=== PATIENT | female | born 1945 | race Caucasian/White ===

== ENCOUNTER 2017-01-23 10:08 | Inpatient (IN) | payer MEDICARE, OTHER ==
[~2017-01-23] VITALS: Ht 170.2 cm; Wt 77.6 kg
[2017-01-23] VITALS (7 sets, daily range): BP systolic 112–146; BP diastolic 58–80; PULSE 90–105; RESP 15–20; O2SAT 93–100
--- NOTE | 2017-01-23 10:09 | ED.REPORT ---
HPI-Stroke / CVA Jan 23, 2017 ED Provider: Johny Green MD 71 year old female with a history of COPD presents to the ER via EMS due to slurred speech. Last known normal 09:00 this morning. Daughter reports that the patient called her this morning and had slurred speech, difficulty word finding , had a "mechanical sound to her voice, and "was not making sense". When she arrived at the patient's home she found the patient extremely diaphoretic, shaking, with a left side facial droop, and states that she had ripped off her nasal cannula. Symptoms have been rapidly improving since the onset, and patient is currently back to baseline. Patient states that she awakened last night and went to the bathroom where she became incontinent of stool and urine, and then became dizzy and experienced difficulty ambulating on her way back to her bed. Upon returning to her bed she neglected to put in her cannula. She then awakened later in the night with visual disturbances of "flashing lights" described as "short circuits in her vision" that have been occurring intermittently for the past few days, and diffuse "jerking motions". Patient denies shortness of breath, chest pain, difficulty swallowing, and numbness/weakness. Daughter also reports that the patient was abnormally fatigued three days ago during a family gathering, with exhaustion that has persistent since. Nursing Notes Stated Complaint: SLURRED SPEECH Nursing Notes Reviewed: Yes Allergies: Coded Allergies: Penicillins (Verified Allergy, Severe, Rash,Itching,, 01/23/17) budesonide (Verified Allergy, Severe, Restlessness, 01/23/17) formoterol (Verified Allergy, Severe, Restlessness, 01/23/17) levofloxacin (Verified Allergy, Severe, Hallucinations, 01/23/17) General Time Seen by Provider: 10:09 Chief Complaint Slurred speech Hx Obtained From: Patient, Daughter Arrived By: Ambulance Time last known well 09:00 this morning Sudden in Onset?: No Symptom Duration: Since onset Progression Since Onset: Rapidly improving Associated with: Reports: Bladder dysfunction, Bowel dysfunction, Incontinence Pertinent Negative: Pt denies other symptoms Similar Sx Previous: No Risk Factors )( TPA Administration/Criteria Stroke Thrombolytic Therapy : TPA Considered: Yes TPA Administered Intravenously: No, not indicated NIH Stroke Scale Level of Consciousness: Alert and responsive (0) Ask Month & Age: Both questions right (0) Open/Close Eyes/Hand Stock Crane Operator: Performs both tasks (0) Horizontal EO Movements: None (0) Visual [place]: No visual loss (0) Facial Palsy: Normal symmetry (0) Right Arm Motor Drift (10s): No drift 10 sec (0) Left Arm Motor Drift (10s): No drift 10 sec (0) Right Leg Motor Drift (5s): No drift 5 sec (0) Left Leg Motor Drift (5s): No drift 5 sec (0) Limb Ataxia FNF/Heel-Carpenter: No ataxia (0) Sensation (Arms/Legs/Face): No sensory loss (0) Language Aphasia: No aphasia, normal (0) Dysarthria: No dysarthria, normal (0) Extinction/Inattention: No exctinct/inattent (0) NIHSS Score: 0 Time NIHSS Performed: 10:19 Date NIHSS Performed: Jan 23, 2017 Past Medical History Past Medical History Notes: CODE STATUS: FULL CODE Past Medical History Reports: COPD Smoking History Unknown if Ever Smoker Social History Other Social History: Good social support Review of Systems Review of Systems Note: +Facial Droop Constitutional: Reports: Fatigue, Denies: Fever Respiratory: Denies: Non-productive cough, Shortness of breath Cardiovascular: Denies: Chest pain Skin: Reports Diaphoresis Neurologic: Reports: Bladder dysfunction, Bowel dysfunction, Dizziness, Problem walking, Shaking, Slurred speech, Vision change ("Flashing lights"), Denies: Focal weakness, Headache, Numbness, Syncope, Weakness Complete sys rev & neg: except as marked. Physical Exam Initial Vital Signs Vital Signs (First) Date Time Temp Pulse Resp B/P Pulse Ox O2 Delivery O2 Flow Rate FiO2 01/23/17 10:12 36.0 103 15 130/75 97 Nasal Cannula 2 Initial VS: Reviewed Abdomen / GI: Soft, Non-tender, No guarding, No rebound, No distention Extremities: Vascular intact, Neuro intact, No swelling, No tenderness Skin: Warm, Dry, No cyanosis Psychiatric: Mood/affect normal, Behavior normal, Normal thought content General/Constitutional: Awake, Alert, Well developed, Well nourished Head / Eyes: Atraumatic, Normocephalic Neck: Supple, Full range of motion, No swelling, Non-tender, No carotid bruit Respiratory / Chest: No respiratory distress Faint bibasilar crackles. Cardiovascular: Heart rate NL, Regular rhythm, Heart sounds NL, No murmurs, Peripheral circulation NL Neurologic: Oriented X3, Speech NL, No motor deficits, No sensory deficits, CN II - XII intact See the NIH Stroke Scale in the Risk section of this note. Interpretation & Diagnostics Lab Results Interpretation Result Diagram: 01/23/17 1025 01/23/17 1025 Test 01/23/17 10:25 01/23/17 13:00 White Blood Count 11.3th/mm3 (3.8-10.1) Red Blood Count 3.77mil/mm3 (3.90-5.20) Hemoglobin 11.1g/dL (12.0-15.6) Hematocrit 40.8% (35.0-46.0) Mean Corpuscular Volume 108.2fL (81-100) Mean Corpuscular Hemoglobin 29.4pg (27.0-35.0) Mean Corpuscular Hemoglobin Concent 27.2% (32.0-37.0) Red Cell Distribution Width 13.0% (12.3-15.4) Platelet Count 156bil/L (150-400) Neutrophils (%) (Auto) 68.6% (40-74) Lymphocytes (%) (Auto) 15.5% (14-46) Monocytes (%) (Auto) 11.8% (4-12) Eosinophils (%) (Auto) 3.6% (0-5) Basophils (%) (Auto) 0.2% (0-3) Prothrombin Time 9.3sec (8.1-12.5) Prothromb Time International Ratio 0.87ratio Sodium Level 145mEq/L (134-144) Potassium Level 5.0mEq/L (3.5-5.2) Chloride Level 97mEq/L (97-108) Carbon Dioxide Level 41mmol/L (18-29) Blood Urea Nitrogen 26mg/dL (8-27) Creatinine 1.18mg/dL (0.57-1.00) Estimat Glomerular Filtration Rate 65mL/min (>59) Glucose Level 110mg/dL (60-99) Calcium Level 9.8mg/dL (8.5-10.1) Magnesium Level 2.5mg/dL (1.6-2.6) Total Bilirubin 0.2mg/dL (0.0-1.2) Aspartate Amino Transf (AST/SGOT) 13U/L (0-50) Alanine Aminotransferase (ALT/SGPT) 7U/L (0-32) Alkaline Phosphatase 54U/L (25-165) Troponin T 0.012ug/L (0.0-0.011) Total Protein 6.4g/dL (6.4-8.4) Albumin 3.5g/dL (3.4-5.0) Triglycerides Level 94mg/dL (0-149) Cholesterol Level 196mg/dL (100-199) LDL Cholesterol, Calculated 92.200mg/dL (0-99) VLDL Cholesterol 18.800mg/dL HDL Cholesterol 85mg/dL (>39) Cholesterol/HDL Ratio 2.31 (0.0-4.4) Urine Color Straw (YELLOW) Urine Appearance Hazy (CLEAR,HAZY) Urine pH 5.5 (5.0-8.0) Urine Specific [place] 1.020 (1.003-1.035) Urine Protein 30mg/dL (NEG,TRACE) Urine Glucose (UA) Negativemg/dL (NEGATIVE) Urine Ketones Negativemg/dL (NEGATIVE) Urine Occult Blood Negative (NEGATIVE) Urine Nitrite Positive (NEGATIVE) Urine Bilirubin Negative (NEGATIVE) Urine Urobilinogen Normalmg/dL (NORMAL) Urine Leukocyte Esterase Negative (NEGATIVE) Urine RBC 0-2/hpf (0-2) Urine WBC 0-5/hpf (0-5) Urine Epithelial Cells Occasional/hpf (NONE-MOD) Urine Crystals None seen (NONE SEEN) Urine Bacteria Many/hpf (NONE-FEW) Urine Hyaline Casts None/lpf (NONE) Urine Granular Casts None seen (NONE SEEN) Urine Waxy Casts None seen (NONE SEEN) Urine Red Blood Cell Casts None seen (NONE SEEN) Urine White Blood Cell Casts None seen (NONE SEEN) Urine Mucus None seen (None Seen) Urine Trichomonas None seen (NONE SEEN) Urine Yeast None (NONE SEEN) Urinalysis Comment None Urine Culture Reflexed Indicated ECG Interpretation ECG Interpretation: Normal sinus rhythm, rate [address] elevation in leads 2, 3, avF with no ST depressions Electrical alternance No STEMI, cannot rule out pericarditis Discussed with wafer fabrication technician, thought likely J-point elevation Time: 11:10 Interpreted by: ED physician X-Ray Chest Interpretation Chest Xray Interpretation: IMPRESSION: No acute cardiopulmonary disease process. Dictated by: Patti Thomas MD, PhD on 01/23/2017 at 11:17 Approved by: Patti Thomas MD, PhD on 01/23/2017 at 11:18 View: Portable, 1 view Interpretation / Wet Read by: Interpret - Radiologist CT Head Interpretation IMPRESSION: 1. Subtle effacement of morton-white matter differentiation involving a small region of the left parietal lobe suggestive of an acute infarct. 2. No acute intracranial hemorrhage. Findings discussed with Dr. Green on 01/23/17 at 11:08 AM. Dictated by: Bobby Mejía M.D. on 01/23/2017 at 11:04 Approved by: Bobby Mejía M.D. on 01/23/2017 at 11:10 Study: Head CT no contrast Interpretation / Wet Read by: Interpret - Radiologist Re-Eval/Medical Decision Med Decision/Clinical Course 71-year-old female history of COPD presenting with dysarthria this morning. Last known normal was on 900. Symptoms resolved prior to arrival. Also with some visual complaints yesterday which resolved. CT brain shows left parietal infarct subacute. Her NIH scale was 0 and her symptoms had resolved therefore not TPA candidate. Patient also with mild troponin elevation. She does have some ST elevations in inferior and lateral leads. Cardiology saw the patient and was able to find an old EKG which showed no change from one month ago. She did not think the troponin elevation was due to cardiac more likely due to stroke. Patient will be admitted for CVA workup. We will trend troponins. Aspirin given. Passed swallow evaluation. Admitted to hospitalist Source of Hx: Old records Re-Evaluation/Progress #1: Time of Eval: 10:27 Re-Evaluation/Progress Note: Discussed need for admission pending lab results. Patient is amenable to the plan. All other questions addressed. Re-Evaluation/Progress #2: Time of Eval: 11:12 Re-Evaluation/Progress Note: Dr. Villalpando, Cardiology, is now present. Discussed ECG findings. She is now seeing the patient. Re-Evaluation/Progress #3: Time of Eval: 11:39 Re-Evaluation/Progress Note: Discussed lab and imaging results and need for admission. Patient is amenable to the plan. All other questions addressed. CODE STATUS: FULL CODE Consultation #1: Referral / Consult Name: Sugar Villalpando MD Consulted With: Cardiology Call Returned at: 10:47 Film Projector Operator: Will see patient Consultation #2: Referral / Consult Name: Sugar Villalpando MD Consulted With: Cardiology Call Returned at: 11:34 Note: Does not think elevated troponin is cardiac, believes it to be related to CVA. Recommends ASA and echocardiogram. Will see patient. Consultation #3: Referral / Consult Name: Neris Guerrero DO Consulted With: Hospitalist Call Returned at: 12:56 Film Projector Operator: Agrees with eval, Agrees with plan, Accepts admit Counseled Regarding: Diagnosis, Lab results, Need for admission Patient Discharge & Departure Impression: Primary Impression: CVA (cerebral vascular accident) Disposition: ADMITTED TO HOSPITAL Discharge Condition All VS Reviewed: Yes Condition: Stable Referrals: Zahira Kemp (PCP) Eden Martinez MD Crit Care Except Billable Proc Time Spent: 30-74 minutes Services Performed: Patient management by me, Time spent at bedside, Reviewing test results, Reviewing imaging, Discussing patient care, Documentation in record, Time with fam/surrogate Scribe Attestation Portions of this note were transcribed by Calvin Martines. I, Dr. Green, personally performed the history, physical exam and medical decision-making; I reviewed and confirmed the accuracy of the information in the transcribed note. Signed by: Constantine Conley, 01/23/2017 at 12:57 copies to: Zahira Kemp; Eden Martinez MD, Ben M MD Jan 23, 2017 10:09 CALVIN MARTINES Jan 23, 2017 10:16
[2017-01-23 10:30] LABS: BASOPHILS % (AUTO) 0.2 % (0-3); EOSINOPHILS % (AUTO) 3.6 % (0-5); MONOCYTES % (AUTO) 11.8 % (4-12); Mean Corpuscular Hemoglobin 29.4 pg (27.0-35.0); Mean Corpuscular Volume 108.2 fL (81-100); NEUTROPHILS % (AUTO) 68.6 % (40-74); Platelet Count 156 bil/L (150-400)
[2017-01-23 10:45] LABS: INR 0.87 ratio
[2017-01-23 10:52] LABS: Magnesium 2.5 mg/dL (1.6-2.6)
--- NOTE | 2017-01-23 11:11 | DRSVH ---
PROCEDURE: CT BRAIN WITHOUT CONTRAST ([id number]) INDICATIONS: Stroke. Slurred speech. TECHNIQUE: Noncontrast 4.5 mm thick angled axial sections acquired from the foramen magnum to the vertex, with c oronal reformats. COMPARISON: None. FINDINGS: Image quality: There is mild motion artifact. CSF spaces: Basal cisterns are patent. No extra-axial fluid collections. Ventricles are normal in size and shape. Brain: No intracranial hemorrhage, mass, or mass effect. There is subtle effacement of the morton-whi te matter differentiation involving a small region of the left parietal lobe. Skull and face: Calvarium and visualized facial bones appear intact, without suspicious lesions. Sinuses: Visualized sinuses and mastoids are clear. IMPRESSION: 1. Subtle effacement of morton-white matter differentiation involving a small region of the left parie chanda lobe suggestive of an acute infarct. 2. No acute intracranial hemorrhage. Findings discussed with Dr. Green on 01/23/17 at 11:08 AM. Dictated by: Bobby Mejía M.D. on 01/23/2017 at 11:04 Approved by: Bobby Mejía M.D. on 01/23/2017 at 11:10
--- NOTE | 2017-01-23 11:20 | DRSVH ---
PROCEDURE: X-RAY CHEST ONE VIEW, PORTABLE ([id number]) INDICATIONS: cough TECHNIQUE: One view of the chest was acquired. COMPARISON: [facility], CR, XR CHEST 2VW, 10/20/2015, 14:41. FINDINGS: Surgical changes and devices: None. Lungs and pleura: No pleural effusions or pneumothorax. Lungs are clear of acute opacities. Bilater al interstitial stable compared to 10/20/15. Mediastinum: Mediastinal contours appear normal. Heart size is normal. Bones and chest wall: No suspicious bony lesions. Overlying soft tissues appear unremarkable. IMPRESSION: No acute cardiopulmonary disease process. Dictated by: Patti Thomas MD, PhD on 01/23/2017 at 11:17 Approved by: Patti Thomas MD, PhD on 01/23/2017 at 11:18
[2017-01-23] MEDS ORDERED: Ondansetron 2 mg/mL 2 mL Inj IVPUSH PRN ×2 (13:00→14:30)
[2017-01-23] MEDS ORDERED: Alum-Mag Hydrox-Simeth 30 mL Suspension PO PRN ×2 (13:00→14:30)
[2017-01-23 13:28] LABS: APPEARANCE,URINE HAZY (CLEAR,HAZY); COLOR,URINE STRAW (YELLOW); OCCULT BLOOD,URINE NEGATIVE (NEGATIVE); PH,URINE 5.5 (5.0-8.0); UROBILINOGEN,URINE NORMAL (NORMAL)
--- NOTE | 2017-01-23 13:30 | CONS ---
[address] [address] CONSULTATION REPORT PATIENT: DANNY DICKENS : 1945 MR#: [id number] ADMIT: 01/23/2017 JOB ID: [id number] DATE OF SERVICE: 01/23/2017 CHIEF COMPLAINT: Flashing lights and abnormal EKG and slurred speech. HISTORY OF PRESENT ILLNESS: Patient is a 71-year-old woman with chronic bronchitis, on supplemental oxygen. She is closely monitored by Dr. Martinez. Over the past 48 hours, she reports some unusual sensations, namely feeling of visualizing flashing lights that last a few seconds in both visual sung and resolve after a few seconds. This problem has been going on for 48 hours. Additionally, she had difficulty with slurred speech, word finding difficulty, and word salad. The patient was diaphoretic, shaking, with left-sided facial droop when daughter discovered her. Right now patient is back to baseline. Unfortunately, imaging demonstrated parietal stroke and Cardiology was consulted to assist with management due to abnormal EKG. PAST MEDICAL HISTORY: 1. Chronic bronchitis, on supplemental oxygen. Monitored by Dr. Martinez. 2. Smoking history. The patient is a lifetime nonsmoker but had extensive exposure to secondhand smoke. SOCIAL HISTORY: She is accompanied by her daughter, Lorenzo, who is a registered nurse. FAMILY HISTORY: Reviewed and non-contributory REVIEW OF SYSTEMS: Significant for facial droop, fatigue, diaphoresis, bladder dysfunction, bowel dysfunction, dizziness, shaking, slurred speech, flashing lights. No chest pain, no syncope. Otherwise, 10-point review of systems is negative. ALLERGIES: 1. PENICILLIN. 2. BUDESONIDE. 3. FORMOTEROL. 4. LEVOFLOXACIN. HOME MEDICATIONS: 1. Advair. 2. Tudorza. 3. Diltiazem CD 300 mg daily. 4. Lisinopril 10 mg daily. PHYSICAL EXAM: VITAL SIGNS: Temperature 36. Blood pressure 130/75, pulse 103 and regular, satting 97% on 2 L nasal cannula. Chronically ill-appearing older woman, lying flat in bed, in no apparent distress. Eyes: No scleral icterus. Neck supple. No carotid bruits. Heart: Normal S1, S2. No murmurs, rubs, or gallops. Her pulse is fast. Lungs with diminished air movement bilaterally but no paul wheezes. Abdomen is soft with positive bowel sounds. No hepatosplenomegaly. Extremities warm, well perfused. No clubbing, cyanosis, edema, skin rash, skin lesions. Patient's labs were reviewed. Her white count is slightly elevated at 11.3, hematocrit 41%, platelet count 166, potassium 5. Calcium 9.8, transaminases normal. Blood glucose 110. Troponin T 0.012. IMAGING: Her brain CT unfortunately showed a subtle effacement of morton-white matter differentiation in the left parietal lobe, suggesting an acute infarct but no acute intracranial hemorrhage. Chest x-ray shows small cardiomediastinal silhouette, hyperinflated lungs. I personally reviewed the radiographs. Minimal calcification along the aorta. No infiltrates. No acute cardiopulmonary disease. EKG: I personally reviewed. Shows sinus tachycardia, normal axis, no left ventricular hypertrophy. There is electrical alternans, which could be due to COPD or cardiomyopathy. There is J-point elevation. Compared to prior EKG, November 2015, no changes have occurred. ASSESSMENT AND PLAN: This is a delightful, 71-year-old woman with subacute stroke. No obvious source of embolism identified. I recommend echocardiogram. I think her troponin is elevated due to stroke. There are no symptoms reparable to acute coronary syndrome. I recommend telemetry to rule out paroxysmal AFib as the cause of her stroke. I think she would benefit from antiplatelet therapy, either aspirin or Plavix. Continue permissive hypertension. I think it is reasonable to hold her lisinopril, but I would keep diltiazem going because we do not know whether it was initiated for rate control. I agree with trending troponins every 8 hours until they peak for documentation purposes. Cardiology will monitor along. Thank you very much for the opportunity to evaluate this patient. GERI
--- NOTE | 2017-01-23 14:04 | NUR ---
Evaluation completed. Please go to "Notes" then click on "Assessments and Notes" (bottom left corner of screen). Then select appropriate discipline tab on top of screen.
--- NOTE | 2017-01-23 14:25 | NUR ---
Admit to room 239-1 Pt arrived via stretcher from ER. Able to stand and transfer to bed after being weighed. c/o dizziness and had LOB, 1 assist with transfer Daughter present at bedside. Wears home O2 3 liters Neuro check done.
[2017-01-23] MEDS ORDERED: Labetalol 5 mg/mL 4 mL Inj IVPUSH PRN (14:30)
[2017-01-23] MEDS ORDERED: hydrALAZINE 20 mg/mL Inj IVPUSH PRN (14:30)
[2017-01-23] MEDS ORDERED: Polyethylene Glycol (PEG) 17 Gm Powder PO PRN (14:30)
--- NOTE | 2017-01-23 16:15 | DRSVH ---
[facility] [address] [place] [address] Echocardiogram Report Name: DANNY DICKENS Date : 01/23/2017 Hefer t: 72 in Hospital Exam Location: [facility] Weigh t: 200 lb Gender: Female BSA: 2.1 m2 : 1945 Age: 71 yrs BP: 1 39/74 mmHg Reason For Study: STROKE Ordering Physician: Sugar Villalpando Performed By: Radha Pete Referring Physician: DR. ESTRADA, DR. RICE Interpretation Summary The left ventricle is normal in size, wall thickness, and systolic function without any focal wall motion abnormalities. The ejection fraction is estimated to be 60-65%. The right ventricle is normal in size and function. The right ventricular systolic pressure is estimated at 30 mmHg assuming a right atrial pressure of 3 mm Hg. The left atrium is mildly dilated. Right atrial size is normal. There is no significant valvular heart disease. The aortic root is normal size. No obvious source for cardioembolic stroke. Procedure: A two-dimensional transthoracic echocardiogram with color flow and Doppler was performed. The study quality was technically adequate. There is no prior echocardiogram noted for this patient. The patient was in normal sinus rhythm during the exam. Left Ventricle: The left ventricle is normal in size, wall thickness, and systolic function without any focal wall motion abnormalities. The ejection fraction is estimated to be 60-65%. Assessment of diastolic parameters indicates normal left ventricular diastolic function and normal filling pressures. Right Ventricle: The right ventricle is normal in size and function. Atria: The left atrium is mildly dilated. Right atrial size is normal. There is no Doppler evidence for an atrial septal defect. Mitral Valve: The mitral valve leaflets appear normal. There is no evidence of stenosis, fluttering, or prolapse. There is trace mitral regurgitation. Aortic Valve: The aortic valve is trileaflet. The aortic valve opens well. No aortic regurgitation is present. Tricuspid Valve: The tricuspid valve leaflets are thin and pliable. There is mild tricuspid regurgitation. The right ventricular systolic pressure is estimated at 30 mmHg assuming a right atrial pressure of 3 mm Hg. Pulmonic Valve: The pulmonic valve leaflets are thin and pliable; valve motion is normal. There is a trace or physiologic amount of pulmonic regurgitation. There is no significant valvular heart disease. Great Vessels: The aortic root is normal size. The dimensions of the ascending aorta are normal. The pulmonary artery is normal size. The IVC is of normal diameter and collapses greater than 50% with a sniff. This suggests a low right atrial pressure of 3 mm Hg. Pericardium/ Pleura There is no pericardial effusion. There is no pleural effusion. MMode/2D Measurements & Calculations LVIDd: 4.9 cm LA dimension: 3.8 cm RA long axis LVOT diam: 2.1 cm LVIDs: 3.4 cm AoV Opening FS: 31.4 % LA A2 area: 23.1 cm RA area EPSS: 0.59 cm LA A4 area: 24.2 cm Ao root diam IVSd: 1.0 cm LA length (vol) : 17.0 cm LVPWd: 1.0 cm RA vol Aortic Jxn: 3.1 cm LA vol: 79.9 ml : 50.7 ml asc Aorta Diam LA vol index RA : 24.3 mm/ Ao Arch Diam (Prox RVDd major Trans): 2.9 cm IVC diam: 1.7 cm : 5.7 cm LV matthews. diameter/BSA LV sys. diameter/BSA RVD2 (mid) (cm/m^2): 2.3 (cm/m^2): 1.6 : 3.3 cm Doppler Measurements & Calculations Ao V2 max MV E max ezra MV E/A: 0.98 TR max ezra : 203.5 cm/sec : 73.0 cm/sec Med Peak E' Ezra : 261.9 cm/sec Ao max P.6 mmHg MV A max ezra TR max PG Ao mean P.6 mmHg : 74.3 cm/sec E/E' med: 7.3 : 27.4 mmHg LVOT Max Ezra MV P1/2t Lat Peak E' Ezra PA V2 max : 163.1 cm/sec : 44.4 msec : 118.6 cm/sec NEERU(I,D): 2.8 cm E/E' lat: 6.2 PA mean PG sev ratio: 0.80 E/e' average: 6.7 Pulm A Revs Dur PA Accel Time : 0.11 sec MV P1/2t max ezra Ao V2 mean LV V1 max PG PA V2 mean : 128.4 cm/sec : 80.3 cm/sec MVA(P1/2t): 5.0 cm2 Ao V2 VTI: 32.5 cmLV V1 VTI: 26.0 cm NEERU(V,D): 2.8 cm2 NEERU indexed to BSA (cm^2/m^2): 1.3 Reading Physician:04:14 PM
--- NOTE | 2017-01-23 17:27 | PCM.HPMED ---
Subjective Date of Service Jan 23, 2017 Primary Provider: Admitting Physician: Neris Guerrero DO Primary Care Physician: Zahira Kemp Attending Physician: Neris Guerrero DO Allergies Coded Allergies: Penicillins (Verified Allergy, Severe, Rash,Itching,, 01/23/17) budesonide (Verified Allergy, Severe, Restlessness, 01/23/17) formoterol (Verified Allergy, Severe, Restlessness, 01/23/17) levofloxacin (Verified Allergy, Severe, Hallucinations, 01/23/17) PMH Social History Hx Alcohol Use: No Hx Substance Use: No Smoking Status: Unknown if Ever Smoker Exam Vital Signs Vital Sign - Last Date Time Temp Pulse Resp B/P Pulse Ox O2 Delivery O2 Flow Rate FiO2 01/23/17 13:31 100 112/58 93 Nasal Cannula 3 01/23/17 10:12 36.0 15 Lab and Diagnostics Result Diagram: 01/23/17 1025 01/23/17 1025 Assessment & Plan HPI: Patient is a 71-year-old female who presents with the complaint of left- sided facial droop. Today the patient states that she woke up at around 6:00 in the morning to use the bathroom but felt that she had shortness of breath and was unsure of why and he realized that she was not wearing her oxygen. The patient states that the oxygen most likely chemotherapy sometime during the middle the night but is unsure of how long it was off. The patient then called her daughter (who is also present during this exam). The daughter states that at 9:00 the patient called her to call for help however her speech was very slurred and very difficult to understand and at that time the daughter called 911. By the time 911 arrived the patient's left-sided facial droop had started to improve and upon arrival to the ER the daughter states that her left-sided facial droop was 98% better. CT of the brain was performed showing an acute infarct in the left parietal lobe. EKG also showed ST segment elevation changes however cardiology was called from the emergency room and revealed that this is actually unchanged from patient's baseline. 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 Please see HPI for pertinent positives, all other systems are negatives. Physical Exam: GEN: Patient was awake, alert, responding appropriately to questions HEENT: Pupils equal round and reactive to light, extraocular eye muscles intact , Neck soft, patient did have some hemianopsia on the left side, supple, trachea midline, nomocephalic/atraumatic CV: +S1/S2, regular rate and rhythm, no murmurs auscultated Respiratory: CTAB, no wheezes, rales, rhonchi GI: +bowel sounds x4, soft, compressible, nontender to palpation EXT: no clubbing, cyanosis, edema Neuro: Cranial nerves II-XII grossly intact, negative edih-me-aneo test, 5/5 lower extremity and approximately strength, Psych: mood and affect were appropriate Assessment and Plan 71-year-old female who presents with CVA CVA -MRI of the brain -CT angiogram -Follow up echo -Lipid panel pending -Hemoglobin A1c pending -Plavix 75 mg daily -Continue aspirin 81 mg daily -Follow up labs in the morning -Follow up lipids -Consult neurology Dr. gutierrez COPD -Currently stable -Continue oxygen 3 L continuously -Albuterol when necessary GERD (stable) -Continue home medication Hypertension -Continue lisinopril 10 mg daily -Continue diltiazem 300 mg daily CK D stage III -Creatinine currently 1.18 which is significantly less than the patient's baseline who reports a baseline of 3 -Continue to monitor Elevated troponins -Most likely secondary to CVA -Trend troponins -Follow up echo -Cardiology was consulted from the ER Disposition: Due to the severity of the patient's current diagnosis she will most likely state greater than 2 midnight Code Status: Full code Time spent One hour Neris Guerrero DO Jan 23, 2017 14:32
--- NOTE | 2017-01-23 17:29 | PCM.ADCARE ---
Advance Care Planning Note Purpose of Encounter: To discuss goals of care and CODE STATUS Parties in Attendance: Patient and her daughter who is currently the POA Decisional Capacity: Good Plan: Patient is aware of her current medical conditions and chooses to be full code. This includes CPR and mechanical ventilation. CODE STATUS: Full code Time Spent Adv.Care Planning: Greater than 16 minutes Neris Guerrero DO Jan 23, 2017 17:29
[2017-01-23] MEDS ORDERED: ASCO-412 PO (17:35)
[2017-01-23] MEDS ORDERED: FLUT12AE4 IH (17:35)
[2017-01-23] MEDS ORDERED: ALBU2.5V4 INHALATION (18:28)
[2017-01-23] MEDS ORDERED: LACT1CAP67 PO (18:28)
[2017-01-23] MEDS ORDERED: FLUT12AE6 IH (18:28)
[2017-01-23] MEDS ORDERED: ALBU8.5H2 INHALATION (18:28)
[2017-01-23] MEDS ORDERED: LISI10TA PO (18:28)
[2017-01-23] MEDS ORDERED: DILT300T9 PO (18:28)
[2017-01-23] MEDS ORDERED: ASCO100089 PO (18:28)
[2017-01-23] MEDS ORDERED: ASPI-973 PO (18:28)
[2017-01-23] MEDS ORDERED: MONT10TA23 PO (18:28)
[2017-01-23] MEDS ORDERED: ESOM40CA53 PO (18:28)
[2017-01-23] MEDS ORDERED: FERR325T6 PO (18:28)
[2017-01-23] MEDS ORDERED: Albuterol HFA 60 Puff 8 Gm Inhaler INHALATION PRN (18:35)
--- NOTE | 2017-01-23 19:28 | NUR ---
PVR Pt voided 450 clear yellow urine, PVR = 89.
[2017-01-23] MEDS ORDERED: Albuterol 2.5 mg/3 mL Inhalation Solution NEB PRN (20:00)
[2017-01-23] MEDS ORDERED: Fluticasone-Salmererol 250-50 Inhaler INHALATION SCH (20:30)
[2017-01-23] MEDS: Lactobacillus Rhamnosus 10 Bil Unit Capsule PO SCH (20:40)
[2017-01-23] MEDS: Diltiazem CD 300 mg ER24 Capsule PO SCH (20:40)
[2017-01-23] MEDS: Fluticasone-Salmeterol 500-50 Inhaler INHALATION SCH (20:40)
[2017-01-24] VITALS (11 sets, daily range): BP systolic 105–156; BP diastolic 58–78; PULSE 83–109; RESP 16–20; O2SAT 94–100
--- NOTE | 2017-01-24 03:25 | NUR ---
Vertigo patient states awoke @ 2am as does every am at home feeling dizzy, "loopy", and shaky , she states she usually has to get 'and use bathroom and have a snack at home at this time, checked BS 104 ,not shaky after eating but still feeling dizzy even with lying down! Addendum: 01/24/17 at 0640 by ADELAIDE LEMA RN Again upon arising for BSC became dizzy w/tremor like upon laying back down resolved
[2017-01-24] MEDS: Pantoprazole 40 mg ER24 Tablet PO SCH (06:32)
[2017-01-24 08:11] LABS: Mean Corpuscular Volume 107.6 fL (81-100)
[2017-01-24] MEDS: Fluticasone-Salmeterol 500-50 Inhaler INHALATION SCH ×2 (08:39→21:25)
[2017-01-24] MEDS: Lactobacillus Rhamnosus 10 Bil Unit Capsule PO SCH (08:40)
[2017-01-24] MEDS ORDERED: FLUT12AE4 IH (08:46)
[2017-01-24] MEDS ORDERED: VIT1TABL95 PO (08:50)
[2017-01-24] MEDS: Diltiazem CD 300 mg ER24 Capsule PO SCH (08:56)
--- NOTE | 2017-01-24 10:18 | NUR ---
Orthostatic VS see VS record. when patients right arm extended increasing shaking/spastic movements When standing shaking noted in right arm and leg. c/o dizziness, even with the slightest movement of head upwards.
--- NOTE | 2017-01-24 10:43 | NUR ---
Evaluation completed. Please go to "Notes" then click on "Assessments and Notes" (bottom left corner of screen). Then select appropriate discipline tab on top of screen.
--- NOTE | 2017-01-24 11:16 | NUR ---
Evaluation completed. Please go to "Notes" then click on "Assessments and Notes" (bottom left corner of screen). Then select appropriate discipline tab on top of screen.
--- NOTE | 2017-01-24 11:26 | NUR ---
Social Work Note - Initial Assessment: D/A: See Initial Assessment. The Pt is a 71 y/o female that was admitted for slurred speech. Readmission Risk Score 1. The Pt's PCP is GREG Kemp and her primary insurance is Medicare with a [place] [place] supplement, Pt reports having LTC insurance with AYLEEN Segura and [place] survivor benefits. EMR reviewed. AYLEEN met with the Pt and her daughter Alayna (goes by Lorenzo) to explain role and discuss discharge planning, AYLEEN telephone number written on white board. The Pt lives independently with her mother in a one level home in [place]. The Pt provides minimal assistance to her mother, daughter Lorenzo lives a few blocks away and helps them both with meals and shopping as needed. Pt reports that her Advanced Directive paperwork is at home, SW requested copy. Before hospitalization, the Pt continued to drive. She does not use any DME and has no HH/SNF history. The Pt uses 24/7 O2 through [employer] and has a housekeeping assist 2x/week. Family is also very supportive. Cardiology involved. Neurology consult pending. PT eval completed, recommending FWW. Prescription placed in folder. ST completed, recommending soft foods with extra moisture and OtPt barium esophagram. HH explored, Pt and family interested. HH list provided to family, no preference given. SW referred to rotating calendar, [facility] referral to placed. Access to be given. Voicemail left for assistance. Family also interested in Senior Resource Guide and PAT information for future planning, guide and printed PAT information given. The Pt and family deny any needs at this time, SW to follow. P: Pt likely to discharge home when medically stable with family to provide POV transportation. HH referral to be placed to [facility], access to be given. F2F in folder. FWW prescription in folder. Senior Resource Guide and PAT information provided. The Pt and family deny any needs at this time, AYLEEN to follow. KATARINA Aaron Button Buttonhole Marker Addendum: 01/24/17 at 1141 by PANDA PIEDRA SS Amended: Links added. Addendum: 01/24/17 at 1403 by PANDA PIEDRA SS SW referral placed to [facility], mishel given. F2F in chart. Addendum: 01/24/17 at 1650 by ELIZABETH JANG SS AYLEEN has reviewed note. Elizabeth Jang,CLINICAL DOCUMENTATION DEVELOPER
--- NOTE | 2017-01-24 11:50 | NUR ---
Neuro Pt reported to daughter that when she woke up at 2 am saw flashes of color. Didn't last long, this is new for her.
[2017-01-24] MEDS ORDERED: 0.9% Sodium Chloride 1,000 ML IV SCH (12:05)
--- NOTE | 2017-01-24 14:46 | DRSVH ---
PROCEDURE: CT ANGIO HEAD AND NECK (P) INDICATIONS: R/O Cerebrial Vascular Disease Intracranial TECHNIQUE: Pre-contrast 4.5 mm thick sections acquired from the foramen magnum to the vertex. After the adminis tration of intravenous contrast, 1 mm thick sections acquired from the aortic arch through the [place]. Post-contrast 4.5 mm thick sections then re-acquired from the foramen magnum to the vert ex. 3-dimensional bslnlrt-awbztnpyc-bpafsxeiht (MIP) and/or volume rendering reformats were acquired of the central intracranial vasculature and neck separately. For radiation dose reduction, the foll owing was used: automated exposure control, adjustment of mA and/or kV according to patient size. COMPARISON: [facility], CT, CT BRAIN WO CON, 01/23/2017, 10:38. FINDINGS: Image quality: Excellent. BRAIN: CSF spaces: Ventricles are normal in size and shape. Basal cisterns are patent. No extra-axial flu id collections. Brain: No midline shift. No intracranial bleeds or masses. Small areas of loss of normal morton-white matter differentiation noted in the left parietal lobe and left frontal lobe suspicious for subacute infarcts. Skull and face: Calvarium and facial bones appear intact, without suspicious lesions. Orbits appear normal. Sinuses: Sinuses and mastoids are clear. HEAD CT ANGIOGRAPHY: Anterior circulation: Intracranial internal carotid arteries are normal in size and flow. Atheroscle rotic calcifications noted in cavernous segment of the internal carotid arteries bilaterally which ca use multifocal mild stenoses. The flow within the paired anterior cerebral arteries is normal and sym metric. The flow within the middle cerebral arteries is normal and symmetric. The anterior communic ating artery is seen. No aneurysms are seen. Posterior circulation: Visualized portions of the vertebral arteries demonstrate normal caliber, and join to form a normal appearing basilar artery. Atherosclerotic calcification noted in the proximal V4 segment of the left vertebral artery which does not cause measurable stenosis. Flow within the pos terior cerebral arteries is normal and symmetric. No aneurysms are seen. There is normal contrast enhancement of the dural sinuses. NECK CT ANGIOGRAPHY: Carotid system: The great vessels demonstrate a conventional anatomy as they arise from the aortic a [facility]. The left which artery arises from the aortic arch proximal to the origin of the left subclavian artery. The origins of the common carotid arteries appear patent. The common carotid arteries demons trate normal caliber and courses. The bifurcation regions are both widely patent. The internal alvarez tid arteries demonstrate normal calibers and courses. Minimal atherosclerotic desiccation noted in th e origin of the left internal carotid artery which does not cause measurable stenosis. Posterior circulation: The origins of the vertebral arteries both appear widely patent. The more alexander perior extracranial portions of both vertebral arteries also demonstrate normal courses and calibers. They join to form a normal appearing basilar artery. Soft tissues: Visualized neck soft tissues demonstrate no suspicious abnormalities. 1.1 cm soft tiss ue density lesion noted in the left paramedian posterior upper back subcutaneous fat likely represent s a small sebaceous cyst. Bones: Cervical spine degenerative disc disease and facet arthropathy are noted. No suspicious bony lesions. Visualized cervical spine appears normally aligned. IMPRESSION: 1. No hemodynamically significant stenosis. 2. No vascular occlusion. 3. No intracranial hemorrhage. 4. Small hypodensities involving the left frontal lobe and left parietal lobe suspicious for subacute infarcts. Dictated by: Patti Thomas MD, PhD on 01/24/2017 at 14:27 Approved by: Patti Thomas MD, PhD on 01/24/2017 at 14:44
--- NOTE | 2017-01-24 15:11 | NUR ---
return from imaging
--- NOTE | 2017-01-24 15:13 | DRSVH ---
PROCEDURE: MRI BRAIN WITHOUT CONTRAST ([id number]) INDICATIONS: WEAKNESS,SLURRED SPEECH, R/O CVA TECHNIQUE: Non-contrast axial T1 spin echo, axial T2 fast spin echo, sagittal and axial FLAIR, coronal T2 fast s pin echo, axial gradient echo, axial diffusion and ADC through the brain. COMPARISON: [facility], CT, CT ANGIO BRAIN AND NECK, 01/24/2017, 13:44. [facility], CT, CT BRAIN WO CON, 01/23/2017, 10:38. FINDINGS: Image quality: Limited by patient motion artifact. CSF spaces: Ventricles appear symmetric in size and shape. Basal cisterns are patent. No extra-axi al fluid collections. Brain: No intracranial bleeds or mass effects. There is cerebral volume loss for age. There are pe riventricular and deep white matter chronic small vessel ischemic changes. Incidental note made of pr ominent perivascular spaces in the cerebral hemispheres. A Brainstem appears normal. Diffusion-weigh wilmer images show no acute ischemic insults. No chronic ischemic insults. Normal intravascular flow v oids are present. Skull and face: Calvarial bone marrow is normal in signal. Orbits are normal. Sinuses: Sinuses and mastoids are clear. IMPRESSION: 1. No acute intracranial disease process. 2. Mild, diffuse on loss. 3. Mild periventricular and subcortical white matter chronic microvascular ischemic changes. 4. No areas of acute or chronic infarction. 5. Prominent cerebral hemisphere perivascular spaces. Prominent perivascular spaces in the left front al and parietal lobes correspond to hypodensities identified by prior CT scans. Dictated by: Patti Thomas MD, PhD on 01/24/2017 at 15:05 Approved by: Patti Thomas MD, PhD on 01/24/2017 at 15:11
--- NOTE | 2017-01-24 16:29 | PCM.PNMED ---
Subjective Date of Service Jan 24, 2017 Subjective Patient was seen and examined at bedside today. Patient denies any chest pain, shortness of breath, nausea, vomiting, diarrhea. Patient still complains of dizziness however she states that it has improved since yesterday. The patient is extremely concerned about her chronic kidney disease and refused her CT angiogram this morning. However after discussing with her that her kidneys are doing well and that we will flush the kidneys prior to the study and just after the study in order to prevent any further damage. Once the patient's daughter was present the patient was more willing to agree to the study. Overnight events: None Exam Vital Signs Vital Sign - Last Date Time Temp Pulse Resp B/P Pulse Ox O2 Delivery O2 Flow Rate FiO2 01/24/17 15:56 Supplement Oxygen 01/24/17 12:10 37.2 85 20 111/64 100 2.00 Intake and Output 01/23/17 01/23/17 01/24/17 Cumulative From/Thru 15:00 23:00 07:00 01/23/17 10:12 - 01/24/17 06:30 Intake Total 420 ml 1060 ml 1480 ml Output Total 450 ml 1600 ml 2050 ml Balance -30 ml -540 ml -570 ml Intake Oral 420 ml 1060 ml 1480 ml IV Total 0 ml 0 ml Output Urine Total 450 ml 1600 ml 2050 ml Exam Physical Exam: GEN: Patient was awake, alert, responding appropriately to questions HEENT: Pupils equal round and reactive to light, extraocular eye muscles intact , Neck soft, patient's left-sided hemianopsia has resolved, supple, trachea midline, nomocephalic/atraumatic CV: +S1/S2, regular rate and rhythm, no murmurs auscultated Respiratory: CTAB, no wheezes, rales, rhonchi GI: +bowel sounds x4, soft, compressible, nontender to palpation EXT: no clubbing, cyanosis, edema Neuro: Cranial nerves II-XII grossly intact, negative lymm-tn-yaxx test, 5/5 lower extremity and approximately strength, Psych: mood and affect were appropriate however the patient does seem to become tangential and needs significant redirecting IVs and Medications Medications Reviewed: Medications were reviewed in detail Lab and Diagnostics Result Diagram: 01/24/1780401/24/17804 Assessment & Plan 71-year-old female who presents with CVA CVA -MRI of the brain -CT angiogram -Echo: Showed no acute cardiac processes normal EF of 60-65% -Lipid panel within normal limits -Hemoglobin A1c 5.3 within normal limits -Plavix 75 mg daily -Continue aspirin 81 mg daily - was consulted I personally spoke with him and he stated that he would see the patient -OT states that the patient is cleared from their standpoint however he feels the patient may need a walker for stability -PT to evaluate and give recommendations -Speech and swallow eval recommend soft diet COPD -Currently stable -Continue oxygen 3 L continuously -Albuterol when necessary GERD (stable) -Continue home medication Hypertension (controlled) -Continue lisinopril 10 mg daily -Continue diltiazem 300 mg daily CKD stage III (baseline Cr. 3 as reported by patient-unsure if this is accurate) -Creatinine currently 1.07 -We will hydrate patient prior to and post contrast studies -Continue to monitor Elevated troponins -Most likely secondary to CVA -Trend troponins currently stable -Echo: Showed no acute cardiac processes normal EF of 60-65% -Cardiology was consulted from the ER DVT prophylaxis: SCDs, and ambulation Disposition: The patient seems to be progressing well and returning back to her normal baseline status. We will continue to follow up with physical therapy for their recommendations. We will also await recommendations from Dr. gutierrez. Code Status: Full code VTE Mechanical Devices: Intermittant Pneumatic CD Neris Guerrero DO Jan 24, 2017 16:29
--- NOTE | 2017-01-24 16:50 | NUR ---
tongue swelling/mobility while in xray c/o tongue swelling. reported that upon observation no swelling noted. upon return to room reports feeling back to normal. I feel really good right now. 1 assist with fww. still has some shakiness right upper and lower extremity at time.
[2017-01-24] MEDS: Ascorbic Acid 500 mg Tablet PO SCH (21:25)
--- NOTE | 2017-01-24 22:56 | CONS ---
[address] [address] CONSULTATION REPORT PATIENT: DANNY DICKENS : 1945 MR#: [id number] ADMIT: 01/23/2017 JOB ID: [id number] DATE OF SERVICE: 01/24/2017 REQUESTING PROVIDER: Dr. Neris Guerrero. CHIEF COMPLAINT: Sudden onset of left-sided weakness. HISTORY OF PRESENTING ILLNESS: The patient is a very pleasant, 71-year-old, right-handed woman with multiple medical problems who developed sudden onset of slurred speech and left-sided weakness as well as loss of urine and bowel control and was admitted to the hospital for further evaluation. In the emergency department, she was noted to improve with NIH stroke scale of zero in the emergency department. Extensive evaluation has been performed so far with no evidence of an acute stroke seen on magnetic resonance imaging studies. She does report that over the last three weeks she has been feeling fatigued which she attributes to switching inhalers. However, since the past week, her daughter, who is an emergency department nurse, her name is Tiffany, at the bedside, did explain that she was concerned about her income taxes and was not sleeping and eating adequately and likely not hydrating adequately in preparation of submitting her taxes. After she submitted her taxes on Sunday, she appeared very fatigued and spent most of the day sleeping and needed help being brought back to her house. She lives 3 miles away from her daughter. At baseline, she is able to ambulate without difficulty. They were planning on seeing her primary care provider the following day, however, that night she experienced the above-noted symptoms. She reports that other than an intermittent tremor of the left upper extremity and intermittent myoclonic-type tremors when she is sleeping of the left lower extremity, she has returned to baseline. She is using a walker when ambulating as recommended by physical therapy. Her daughter reports that she fills the patient's pill boxes every week and that she has been taking aspirin religiously. Incidentally, she also reports that she has severe gastroesophageal reflux disease and was originally on Nexium, however, this was switched to Zantac and she saw her primary care physician who recommended that she restart Nexium, however, she reports that she feels that the Zantac is more effective. She describes the sensation of an air bubble in her epigastrium that she has trouble passing. REVIEW OF SYSTEMS: A complete review of systems was performed and was remarkable for above noted. PAST MEDICAL HISTORY: Remarkable for chronic obstructive pulmonary disease, oxygen dependent on 3 L; gastroesophageal reflux disease chronic; kidney disease, stage 3; hypertension; chronic gallstones with a 3.2 mm stone. PAST SURGICAL HISTORY: 1. Status post tonsillectomy. 2. Status post tubal ligation. 3. Status post EGD. FAMILY HISTORY: A family history of hypertension and now strokes. SOCIAL HISTORY: She is retired. She originally lived in [place], however, her and she moved to be near her daughter. HOME MEDICATIONS: Remarkable for: 1. Advair. 2. Tudorza. 3. Diltiazem. 4. Lisinopril. 5. Aspirin 81 mg daily. ALLERGIES: 1. PENICILLIN. 2. BUDESONIDE FORMOTEROL. 3. LEVOFLOXACIN. IMAGING STUDIES: Chest x-ray demonstrated no acute cardiopulmonary disease process. A CT of her head initially demonstrated subtle effacement of the morton white matter differentiation involving a small region of the left parietal lobe. No acute intracranial hemorrhage. CTA of the head was performed with brain perfusion demonstrating no hemodynamically significant stenosis, no vascular occlusion, no intracranial hemorrhage and small hypodensities were again seen in the left frontal and left parietal lobes. The magnetic resonance imaging study of the brain demonstrated no acute intracranial disease process, mild diffuse volume loss, mild periventricular and subcortical white matter, chronic microvascular ischemic changes, no areas of acute or chronic infarction, prominent cerebral hemisphere and perivascular spaces and the prominent perivascular spaces are likely what was seen on the CAT scans, both the CT and the CTA in the left frontal and parietal lobes. These are benign findings. LABORATORY STUDIES: Initial labs: WBC of 11.3, today 8.7. Hemoglobin 11.1, today 9.9. Hematocrit 40.8, today 36.7. Platelets 156 and today 133. There is no history of thrombocytopenia. Chemistries: Sodium 145, potassium 5.0, chloride 97, bicarb 41, BUN 26, creatinine was 1.18 and glucose 110. Initial troponin increase of 0.012 and today sodium 143, potassium 5.4, chloride 94, bicarb was 38, BUN is 24, creatinine 1.07. Hemoglobin A1c of 5.3. LFTs within normal limits. Troponin T is less than 0.010 and triglycerides 72, cholesterol 165, LDL cholesterol 72.6, HDL cholesterol 78. Coags: PT was 9.3, INR 0.087 A urinalysis: Straw, hazy, urine pH 5.5, urine specific gravity 1.020. Protein of 30, positive for nitrite and occasional urine epithelial cells. No crystals. Many bacteria. Otherwise unremarkable. PHYSICAL EXAMINATION: Temperature 37.1, pulse of 83, respiratory rate of 20, blood pressure 112/58, she is on 2 L nasal cannula saturating 99% oxygen saturation. General: She is a well-developed, well-nourished woman, in no acute distress. Head: Normocephalic, atraumatic. Neck is supple. No carotid bruits were auscultated. Negative Kernig. Negative Brudzinski. Chest: Trace wheezes throughout. Abdomen is soft, nondistended, nontender. Extremities: No cyanosis, clubbing, or edema. NEUROLOGIC EXAMINATION: Mental status: She is awake, alert, oriented x3. Speech clear and fluent with intact comprehension. There was no aphasia. Cranial nerves: Pupils equal, round, reactive to light. Extraocular movements were smooth and conjugate with no evidence of nystagmus. Face appeared symmetrical. Facial sensation was intact to light touch and temperature. Auditory sensation was intact to finger rub bilaterally. Palatal elevation was symmetrical. Tongue was midline. Sternocleidomastoid and trapezii were 5/5 bilaterally. Motor: Normal tone and bulk. Muscle strength 5/5 throughout. Coordination: Ozuwbu-[id number] was intact bilaterally. She did have a transient left upper extremity postural tremor noted, however, no evidence of dysmetria. Sensation was intact to light touch and temperature. Deep tendon reflexes 2+ and symmetrical. Plantars were equivocal bilaterally. Gait was deferred. IMPRESSION: Transient ischemic attack. The prior abnormalities noted on both computed tomography scans likely represent prominent perivascular spaces in the left frontal and left parietal lobes. Given that she was compliant with aspirin and does not have any other significant stroke risk factors other than hypertension which also appeared to be very well controlled, my suspicion is that this may represent an aspirin failure and, in light of this, I do recommend switching to Plavix 75 mg daily. We discussed side effects and the risk of fall, and the patient at baseline is able to ambulate without difficulty and achieve her activities of daily living. NIH stroke scale is zero. Modified Peñuelas scale of zero. We reviewed side effects and the importance of fall prevention. We also discussed the importance of optimizing control of stroke risk factors. She does not smoke. Her cholesterol appears well controlled. Her blood pressures do appear well controlled at this time. I do recommend further evaluation by physical therapy/occupational therapy. She may also benefit from a swallow evaluation and further evaluation regarding her gastroesophageal reflux disease. She would also benefit from continued pantoprazole as this medication does not interact with her clopidogrel. The transient episodes of bright flashing lights that are less than a second in duration which are of new onset are likely related to orthostatic hypotension, my suspicion is that her blood pressures are actually quite low for her baseline and this may predispose her toward these episodes. She may benefit from slight alteration and optimization of control of her hypertension with alteration of the doses of her two antihypertensive agents. PRESENT MEDICATIONS: Do include: 1. Tylenol p.r.n. 2. Albuterol inhaler. 3. Ascorbic acid. 4. Aspirin 81 mg daily. 5. Atorvastatin 10 mg p.o. q.h.s. 6. Clopidogrel 75 mg p.o. daily. 7. Diltiazem. 8. Ferrous sulfate. 9. Fluticasone. 10. Salmeterol. 11. Hydralazine p.r.n. 12. Labetalol p.r.n. 13. Lactobacillus. 14. Lisinopril. 15. Singulair. 16. Protonix 40 mg daily. I do recommend further evaluation regarding her severe gastroesophageal reflux disease. I also recommend continued optimization of control of her hypertension, perhaps by altering one or both of the doses of the two antihypertensive agents, as I suspect that the episodes of bright flashing lights that she experiences transiently are in fact suggestive of orthostatic hypotension as opposed to another etiology such as transient ischemic attacks or migrainous phenomenon. I do recommend that she follow up with her primary care provider within one week. I also do recommend followup in the Neurology Clinic at some point in the future. Echocardiogram: The left ventricle was normal in size, wall thickness and systolic function without any focal wall motion abnormalities. The ejection fraction was estimated to be 60% to 65%. The right ventricle was normal in size and function. The right ventricular systolic pressure was estimated to be 30 mmHg assuming a right atrial pressure of 3 mmHg. The left atrium was mildly dilated. Right atrial size was normal. There was no significant valvular heart disease. The aortic root was normal in size and no obvious source for cardioembolic stroke was noted. I did review her blood pressures and her initial blood pressure was 130/75 and her blood pressure did drop as low as 105/67, and my suspicion is that the transient episodes of photopsia that she experiences may be secondary to these drops in blood pressure. Thank you, again, Dr. Guerrero, for allowing me to participate in the care of your patient. Please feel free to contact me with any questions or concerns. Greater than 50% of this 70 minute visit was devoted counseling regarding diagnosis and management. GERI
[2017-01-25] VITALS (13 sets, daily range): BP systolic 90–164; BP diastolic 54–78; PULSE 80–114; RESP 16–24; O2SAT 93–99
--- NOTE | 2017-01-25 03:20 | NUR ---
Vertigo/ orthostatic Woke patient for 2am vitals denied any problems other than was sleeping soundly 20min later called to get up to go to [facility] and upon rising vertigo and tremors returned upon returning to bed did orthostatic BP w/ a drop in SBP from 147@sit to 116@ stand issues resolved once back in bed
[2017-01-25] MEDS: Pantoprazole 40 mg ER24 Tablet PO SCH (06:27)
[2017-01-25 07:09] LABS: Mean Corpuscular Hemoglobin 28.9 pg (27.0-35.0); Mean Corpuscular Volume 108.2 fL (81-100)
[2017-01-25 08:02] LABS: TROPONIN T < 0.010 ug/L (0.0-0.011)
[2017-01-25] MEDS: Ascorbic Acid 500 mg Tablet PO SCH ×2 (08:07→22:41)
[2017-01-25] MEDS: Fluticasone-Salmeterol 500-50 Inhaler INHALATION SCH ×2 (08:07→21:01)
[2017-01-25] MEDS: Lactobacillus Rhamnosus 10 Bil Unit Capsule PO SCH (08:07)
[2017-01-25 09:16] LABS: Unsaturated Iron Binding 185.1 ug/dL
[2017-01-25] MEDS ORDERED: Iron Sucrose Inj 200 MG in 0.9% Sodium Chloride 100 ML IV ONE (13:50)
[2017-01-25] MEDS: 0.9% Sodium Chloride 1,000 ML IV SCH (14:24)
--- NOTE | 2017-01-25 15:44 | DRSVH ---
PROCEDURE: X-RAY BARIUM SWALLOW ESOPHAGUS ([id number]) INDICATIONS: globus, dysphagia COMPARISON: None. FINDINGS: Function: There is mild esophageal dysmotility. Mild elicited gastroesophageal reflux. There is no rmal transit of a calibrated barium tablet through the esophagus into the stomach. Morphology: Air-contrast images demonstrate normal mucosal morphology. Single contrast views show n o esophageal strictures or extrinsic mass effects. Small left lateral diverticulum involving the dis chanda esophagus is present. Small hiatal hernia.. Limited images of the stomach demonstrate normal ap pearance. The attending physician was personally present in the room during the examination. IMPRESSION: 1. Mild esophageal dysmotility. 2. Small distal esophageal diverticula along the left lateral aspect of the esophagus. 3. Small reducible hiatal hernia and mild spontaneous gastroesophageal reflux. Dictated by: Rico Gonsales [facility] Interpreted: Cyril Curry MD on 01/25/2017 at 15:41 Transcribed by: SHALONDA on 01/25/2017 at 15:43 Approved by: Cyril Curry M.D. on 01/25/2017 at 16:42
--- NOTE | 2017-01-25 15:56 | CONS ---
[address] [address] CONSULTATION REPORT PATIENT: DANNY DICKENS : 1945 MR#: [id number] ADMIT: 01/23/2017 JOB ID: [id number] DATE OF SERVICE: 01/25/2017 GASTROENTEROLOGY CONSULTATION: REASON FOR CONSULTATION: Dysphagia. HISTORY OF PRESENT ILLNESS: A 71-year-old female with a history of COPD on home oxygen, hypertension, renal insufficiency, who presents here for consultation for dysphagia. The patient was admitted to the hospital on January 23, 2017 for slurred speech and difficulty speaking words and was found to have a TIA. The patient is currently on Plavix at this point in time. The patient was seen by me in the office on January 03, 2017 for dysphagia. The patient had dysphagia for the past five years, intermittent, to both solids and liquids. The patient denies history of odynophagia. The patient had an EGD in the past which showed a polyp at the GE junction which was removed and a colonoscopy in 2003 which was normal. I have no records. The patient does have family history of colon cancer in a sister diagnoses at the age of 16 but no family history of inflammatory bowel disease or celiac disease. The patient was admitted also because she was also dehydrated. The patient states she feels like food gets stuck in the throat at the xiphoid process. The patient denies rectal bleeding, nausea, vomiting, hematemesis, abdominal pain, change in bowel habits or unintentional weight loss. PAST MEDICAL HISTORY: As I stated above. PAST SURGERIES: 1. Tonsillectomy. 2. Tubal ligation. ALLERGIES: 1. PENICILLIN. 2. BUDESONIDE. 3. LEVAQUIN. SOCIAL HISTORY: Retired, originally from [place], unknown for smoking or IV drug use or alcohol. FAMILY HISTORY: Negative for colon cancer, inflammatory bowel disease or celiac disease. REVIEW OF SYSTEMS: The patient denies headache, blurred vision, nausea, vomiting, chest pain. Positive for facial droop. No chest pain or shortness of breath. No abdominal pain, skin rashes or joint pain. PHYSICAL EXAMINATION: Vital signs upon presentation: Her temperature is 37.1, pulse of 103, blood pressure of 90/54, respiratory rate of 24, satting 94% on 3 L nasal cannula. General: Head: No scars. Eyes: Anicteric. Throat: Supple. Lungs: Clear to auscultation bilaterally. Cardiovascular: Regular rhythm and rate. Abdomen: Soft, nondistended, nontender. Normal bowel sounds. Extremities: There is no cyanosis, clubbing or edema. LABORATORIES: White count 7.6, hemoglobin 8.8, hematocrit 32, MCV of 108, platelet count 119. PT 10.3, INR of 0.87. Sodium 143, potassium 5.6, chloride 95, bicarbonate 40, BUN 26, creatinine 1.1. Glucose is 91. Calcium 9.4. Iron 28, TIBC 213, % iron saturation 13, ferritin 249. Total bili 0.2, AST 10, ALT 6, alk phos of 46. Albumin 3.0. ASSESSMENT AND PLAN: This is a 71-year-old female with a history of COPD on home oxygen, osteoporosis, renal insufficiency, hypertension admitted here for facial droop, slurred speech due to a stroke, currently on Plavix. Differential diagnosis of dysphagia includes Schatzki ring versus uncontrolled GERD versus esophagitis versus eosinophilic esophagitis. I have explained the risks and benefits to the patient. The patient wishes to proceed with the upper endoscopy despite being on Plavix. RECOMMENDATIONS: 1. N.p.o. at midnight. 2. EGD with anesthesia tomorrow. 3. I do recommend the patient should be on some sort of proton pump inhibitor such as Protonix but encouraged the hospitalist to touch base with the pharmacy given that the patient is currently on Plavix for drug interactions.
--- NOTE | 2017-01-25 16:10 | NUR ---
Social Work Note - Continued D/C Planning Data: EMR reviewed. Pt is on day 2 of hospitalization for slurred speech per H&P. Cardiology involved. Neurology following. AYLEEN met with pt and daughter Alayna regarding discharge plan, obtaining fww. Pt requires fww with seat and brakes. SW called [facility] regarding this. Pt's daughter to go to [facility] with script to obtain walker, then be reimbursed through [facility]. Daughter agreeable to this. F2F faxed to [facility]. SW will continue to follow. Assessment: Pt who would benefit from fww with seat and brakes and [facility] RN PT Plan: Daughter to obtain fww through [facility]. Script provided. Pt to discharge home with [facility] PT when medically stable with family to provide POV transportation. Susan Alarcon MSW
--- NOTE | 2017-01-25 16:49 | NUR ---
Vertigo/Orthostatic Patient experiencing vertigo when hob raised. Orthostatic VS done. Lying 130/66, sitting 135/73, standing 90/54. Patient began trembling in arms when standing and reports mild trembling in arms throughout day while in bed. Hospitalist made aware.
--- NOTE | 2017-01-25 17:45 | NUR ---
BP Patient BP 164/78. MD stallworth paged, awaiting response.
[2017-01-25] MEDS ORDERED: Diltiazem CD 240 mg ER24 Capsule PO ONE (20:05)
--- NOTE | 2017-01-25 20:15 | PCM.PNMED ---
Subjective Date of Service Jan 25, 2017 Subjective Patient is seen and examined. Denies dyspnea, chest pain, weakness, confusion. Denies overnight fevers, chills, nausea, vomiting, headaches. She is using a walker when ambulating as recommended by physical therapy. Her daughter reports that she fills the patient's pill boxes every week and that she has been taking aspirin religiously. Patient describes the sensation of an air bubble in her epigastrium that she has trouble passing. Also says she has anxiety issues Exam Vital Signs Vital Sign - Last Date Time Temp Pulse Resp B/P Pulse Ox O2 Delivery O2 Flow Rate FiO2 01/25/17 02:30 97 116/60 01/25/17 02:25 16 97 Nasal Cannula 3.00 01/25/17 02:09 37.0 Intake and Output 01/24/17 01/24/17 01/25/17 Cumulative From/Thru 15:00 23:00 07:00 01/23/17 10:12 - 01/24/17 17:14 Intake Total 2400 ml 3880 ml Output Total 2050 ml Balance 2400 ml 1830 ml Intake Oral 1400 ml 2880 ml IV Total 1000 ml 1000 ml Output Urine Total 2050 ml # Voids 5 5 # Bowel Movements 1 1 Exam Physical Exam Template: General: NAD, walking in the hallways with daughter and PT/OT HEENT: NCAT Eyes: [place] conjunctivae. No ptosis Neck: No masses, trachea midline, no thyromegaly Lungs: CTA with normal respiratory effort, no crackles or wheezes CV: RRR, no murmurs/rubs/gallops GI: Soft, non-tender with no hepatosplenomegaly Skin: Warm and dry. Psych: A&O X3 IVs and Medications Medications Reviewed: Medications were reviewed in detail Lab and Diagnostics Result Diagram: 01/24/1780401/24/17 08 X-Rays, CTs and MRIs [facility] [place] [address] Patient Name: DANNY DICKENS MR#: [id number] [place] [facility] [place] Ordering Phys: Neris Guerrero DO Date of Service: 01/24/17 0800 PROCEDURE: MRI BRAIN WITHOUT CONTRAST ([id number]) INDICATIONS: WEAKNESS,SLURRED SPEECH, R/O CVA TECHNIQUE: Non-contrast axial T1 spin echo, axial T2 fast spin echo, sagittal and axial FLAIR, coronal T2 fast spin echo, axial gradient echo, axial diffusion and ADC through the brain. COMPARISON: [facility], CT, CT ANGIO BRAIN AND NECK, 01/24/2017, 13: 44. [facility], CT, CT BRAIN WO CON, 01/23/2017, 10:38. FINDINGS: Image quality: Limited by patient motion artifact. CSF spaces: Ventricles appear symmetric in size and shape. Basal cisterns are patent. No extra-axial fluid collections. Brain: No intracranial bleeds or mass effects. There is cerebral volume loss for age. There are periventricular and deep white matter chronic small vessel ischemic changes. Incidental note made of prominent perivascular spaces in the cerebral hemispheres. A Brainstem appears normal. Diffusion-weighted images show no acute ischemic insults. No chronic ischemic insults. Normal intravascular flow voids are present. Skull and face: Calvarial bone marrow is normal in signal. Orbits are normal. Sinuses: Sinuses and mastoids are clear. IMPRESSION: 1. No acute intracranial disease process. 2. Mild, diffuse on loss. 3. Mild periventricular and subcortical white matter chronic microvascular ischemic changes. 4. No areas of acute or chronic infarction. 5. Prominent cerebral hemisphere perivascular spaces. Prominent perivascular spaces in the left frontal and parietal lobes correspond to hypodensities identified by prior CT scans. Dictated by: Patti Thomas MD, PhD on 01/24/2017 at 15:05 Approved by: Patti Thomas MD, PhD on 01/24/2017 at 15:11 [facility] Diagnostic Imaging Department [place], [place] [id number] Patient Name: DANNY DICKENS MR#: [id number] [place] [facility] [place] Ordering Phys: Neris Guerrero DO Date of Service: 01/24/17 0800 PROCEDURE: CT ANGIO HEAD AND NECK (P) INDICATIONS: R/O Cerebrial Vascular Disease Intracranial TECHNIQUE: Pre-contrast 4.5 mm thick sections acquired from the foramen magnum to the vertex. After the administration of intravenous contrast, 1 mm thick sections acquired from the aortic arch through the [place] of [place]. Post-contrast 4.5 mm thick sections then re-acquired from the foramen magnum to the vertex. 3- dimensional [id number] (MIP) and/or volume rendering reformats were acquired of the central intracranial vasculature and neck separately. For radiation dose reduction, the following was used: automated exposure control, adjustment of mA and/or kV according to patient size. COMPARISON: [facility], CT, CT BRAIN WO CON, 01/23/2017, 10:38. FINDINGS: Image quality: Excellent. BRAIN: CSF spaces: Ventricles are normal in size and shape. Basal cisterns are patent. No extra-axial fluid collections. Brain: No midline shift. No intracranial bleeds or masses. Small areas of loss of normal morton-white matter differentiation noted in the left parietal lobe and left frontal lobe suspicious for subacute infarcts. Skull and face: Calvarium and facial bones appear intact, without suspicious lesions. Orbits appear normal. Sinuses: Sinuses and mastoids are clear. HEAD CT ANGIOGRAPHY: Anterior circulation: Intracranial internal carotid arteries are normal in size and flow. Atherosclerotic calcifications noted in cavernous segment of the internal carotid arteries bilaterally which cause multifocal mild stenoses. The flow within the paired anterior cerebral arteries is normal and symmetric. The flow within the middle cerebral arteries is normal and symmetric. The anterior communicating artery is seen. No aneurysms are seen. Posterior circulation: Visualized portions of the vertebral arteries demonstrate normal caliber, and join to form a normal appearing basilar artery. Atherosclerotic calcification noted in the proximal V4 segment of the left vertebral artery which does not cause measurable stenosis. Flow within the posterior cerebral arteries is normal and symmetric. No aneurysms are seen. There is normal contrast enhancement of the dural sinuses. NECK CT ANGIOGRAPHY: Carotid system: The great vessels demonstrate a conventional anatomy as they arise from the aortic arch. The left which artery arises from the aortic arch proximal to the origin of the left subclavian artery. The origins of the common carotid arteries appear patent. The common carotid arteries demonstrate normal caliber and courses. The bifurcation regions are both widely patent. The internal carotid arteries demonstrate normal calibers and courses. Minimal atherosclerotic desiccation noted in the origin of the left internal carotid artery which does not cause measurable stenosis. Posterior circulation: The origins of the vertebral arteries both appear widely patent. The more superior extracranial portions of both vertebral arteries also demonstrate normal courses and calibers. They join to form a normal appearing basilar artery. Soft tissues: Visualized neck soft tissues demonstrate no suspicious abnormalities. 1.1 cm soft tissue density lesion noted in the left paramedian posterior upper back subcutaneous fat likely represents a small sebaceous cyst. Bones: Cervical spine degenerative disc disease and facet arthropathy are noted. No suspicious bony lesions. Visualized cervical spine appears normally aligned. IMPRESSION: 1. No hemodynamically significant stenosis. 2. No vascular occlusion. 3. No intracranial hemorrhage. 4. Small hypodensities involving the left frontal lobe and left parietal lobe suspicious for subacute infarcts. Dictated by: Patti Thomas MD, PhD on 01/24/2017 at 14:27 Approved by: Patti Thomas MD, PhD on 01/24/2017 at 14:44 [facility] Diagnostic [place] [address] Patient Name: DANNY DICKENS MR#: [id number] Location: [facility] [place] Ordering Phys: Johny Green MD Date of Service: 01/23/17 1029 PROCEDURE: CT BRAIN WITHOUT CONTRAST ([id number]) INDICATIONS: Stroke. Slurred speech. TECHNIQUE: Noncontrast 4.5 mm thick angled axial sections acquired from the foramen magnum to the vertex, with coronal reformats. COMPARISON: None. FINDINGS: Image quality: There is mild motion artifact. CSF spaces: Basal cisterns are patent. No extra-axial fluid collections. Ventricles are normal in size and shape. Brain: No intracranial hemorrhage, mass, or mass effect. There is subtle effacement of the morton-white matter differentiation involving a small region of the left parietal lobe. Skull and face: Calvarium and visualized facial bones appear intact, without suspicious lesions. Sinuses: Visualized sinuses and mastoids are clear. IMPRESSION: 1. Subtle effacement of morton-white matter differentiation involving a small region of the left parietal lobe suggestive of an acute infarct. 2. No acute intracranial hemorrhage. Findings discussed with Dr. Green on 01/23/17 at 11:08 AM. Dictated by: Bobby Mejía M.D. on 01/23/2017 at 11:04 Approved by: Bobby Mejía M.D. on 01/23/2017 at 11:10 Cardiac Echo Impressions [facility] Diagnostic [place] [address] Patient Name: DANNY DICKENS MR#: [id number] [place] [facility] [place] Ordering Phys: Sugar Villalpando MD Date of Service: 01/23/[address] [address] Echocardiogram Report Name: DANNY DICKENS Date : 01/23/2017 Heigh t: 72 in Hospital Exam Location: [facility] Weigh t: 200 lb Gender: Female BSA: 2.1 m2 : 1945 Age: 71 yrs BP: 1 39/74 mmHg Reason For Study: STROKE Ordering Physician: Sugar Villalpando Performed By: Radha Pete Referring Physician: DR. ESTRADA, DR. RICE Interpretation Summary The left ventricle is normal in size, wall thickness, and systolic function without any focal wall motion abnormalities. The ejection fraction is estimated to be 60-65%. The right ventricle is normal in size and function. The right ventricular systolic pressure is estimated at 30 mmHg assuming a right atrial pressure of 3 mm Hg. The left atrium is mildly dilated. Right atrial size is normal. There is no significant valvular heart disease. The aortic root is normal size. No obvious source for cardioembolic stroke. Procedure: A two-dimensional transthoracic echocardiogram with color flow and Doppler was performed. The study quality was technically adequate. There is no prior echocardiogram noted for this patient. The patient was in normal sinus rhythm during the exam. Left Ventricle: The left ventricle is normal in size, wall thickness, and systolic function without any focal wall motion abnormalities. The ejection fraction is estimated to be 60-65%. Assessment of diastolic parameters indicates normal left ventricular diastolic function and normal filling pressures. Right Ventricle: The right ventricle is normal in size and function. Atria: The left atrium is mildly dilated. Right atrial size is normal. There is no Doppler evidence for an atrial septal defect. Mitral Valve: The mitral valve leaflets appear normal. There is no evidence of stenosis, fluttering, or prolapse. There is trace mitral regurgitation. Aortic Valve: The aortic valve is trileaflet. The aortic valve opens well. No aortic regurgitation is present. Tricuspid Valve: The tricuspid valve leaflets are thin and pliable. There is mild tricuspid regurgitation. The right ventricular systolic pressure is estimated at 30 mmHg assuming a right atrial pressure of 3 mm Hg. Pulmonic Valve: The pulmonic valve leaflets are thin and pliable; valve motion is normal. There is a trace or physiologic amount of pulmonic regurgitation. There is no significant valvular heart disease. Great Vessels: The aortic root is normal size. The dimensions of the ascending aorta are normal. The pulmonary artery is normal size. The IVC is of normal diameter and collapses greater than 50% with a sniff. This suggests a low right atrial pressure of 3 mm Hg. Pericardium/ Pleura There is no pericardial effusion. There is no pleural effusion. MMode/2D Measurements & Calculations LVIDd: 4.9 cm LA dimension: 3.8 cm RA long axis LVOT diam: 2.1 cm LVIDs: 3.4 cm AoV Opening FS: 31.4 % LA A2 area: 23.1 cm RA area EPSS: 0.59 cm LA A4 area: 24.2 cm Ao root diam IVSd: 1.0 cm LA length (vol) : 17.0 cm LVPWd: 1.0 cm RA vol Aortic Jxn: 3.1 cm LA vol: 79.9 ml : 50.7 ml asc Aorta Diam LA vol index RA : 24.3 mm/ Ao Arch Diam (Prox RVDd major Trans): 2.9 cm IVC diam: 1.7 cm : 5.7 cm LV matthews. diameter/BSA LV sys. diameter/BSA RVD2 (mid) (cm/m^2): 2.3 (cm/m^2): 1.6 : 3.3 cm Doppler Measurements & Calculations Ao V2 max MV E max ezra MV E/A: 0.98 TR max ezra : 203.5 cm/sec : 73.0 cm/sec Med Peak E' Ezra : 261.9 cm/sec Ao max P.6 mmHg MV A max ezra TR max PG Ao mean P.6 mmHg : 74.3 cm/sec E/E' med: 7.3 : 27.4 mmHg LVOT Max Ezra MV P1/2t Lat Peak E' Ezra PA V2 max : 163.1 cm/sec : 44.4 msec : 118.6 cm/sec NEERU(I,D): 2.8 cm E/E' lat: 6.2 PA mean PG sev ratio: 0.80 E/e' average: 6.7 Pulm A Revs Dur PA Accel Time : 0.11 sec MV P1/2t max ezra Ao V2 mean LV V1 max PG PA V2 mean : 128.4 cm/sec : 80.3 cm/sec MVA(P1/2t): 5.0 cm2 Ao V2 VTI: 32.5 cmLV V1 VTI: 26.0 cm NEERU(V,D): 2.8 cm2 NEERU indexed to BSA (cm^2/m^2): 1.3 Reading Physician:04:14 PM ADDENDUM Version 2 [facility] [address] [place] [address] Echocardiogram Report Name: DANNY DICKENS Date : 01/23/2017 Heigh t: 72 in Hospital Exam Location: [facility] Weigh t: 200 lb Gender: Female BSA: 2.1 m2 : 1945 Age: 71 yrs BP: 1 39/74 mmHg Reason For Study: STROKE Ordering Physician: Sugar Villalpando Performed By: Radha Pete Referring Physician: DR. ESTRADA, DR. RICE Interpretation Summary The left ventricle is normal in size, wall thickness, and systolic function without any focal wall motion abnormalities. The ejection fraction is estimated to be 60-65%. The right ventricle is normal in size and function. The right ventricular systolic pressure is estimated at 30 mmHg assuming a right atrial pressure of 3 mm Hg. The left atrium is mildly dilated. Right atrial size is normal. There is no significant valvular heart disease. The aortic root is normal size. No obvious source for cardioembolic stroke. Interpreted by Dr. Rivas. Procedure: A two-dimensional transthoracic echocardiogram with color flow and Doppler was performed. The study quality was technically adequate. There is no prior echocardiogram noted for this patient. The patient was in normal sinus rhythm during the exam. Left Ventricle: The left ventricle is normal in size, wall thickness, and systolic function without any focal wall motion abnormalities. The ejection fraction is estimated to be 60-65%. Assessment of diastolic parameters indicates normal left ventricular diastolic function and normal filling pressures. Right Ventricle: The right ventricle is normal in size and function. Atria: The left atrium is mildly dilated. Right atrial size is normal. There is no Doppler evidence for an atrial septal defect. Mitral Valve: The mitral valve leaflets appear normal. There is no evidence of stenosis, fluttering, or prolapse. There is trace mitral regurgitation. Aortic Valve: The aortic valve is trileaflet. The aortic valve opens well. No aortic regurgitation is present. Tricuspid Valve: The tricuspid valve leaflets are thin and pliable. There is mild tricuspid regurgitation. The right ventricular systolic pressure is estimated at 30 mmHg assuming a right atrial pressure of 3 mm Hg. Pulmonic Valve: The pulmonic valve leaflets are thin and pliable; valve motion is normal. There is a trace or physiologic amount of pulmonic regurgitation. There is no significant valvular heart disease. Great Vessels: The aortic root is normal size. The dimensions of the ascending aorta are normal. The pulmonary artery is normal size. The IVC is of normal diameter and collapses greater than 50% with a sniff. This suggests a low right atrial pressure of 3 mm Hg. Pericardium/ Pleura There is no pericardial effusion. There is no pleural effusion. MMode/2D Measurements & Calculations LVIDd: 4.9 cm LA dimension: 3.8 cm RA long axis LVOT diam: 2.1 cm LVIDs: 3.4 cm AoV Opening FS: 31.4 % LA A2 area: 23.1 cm RA area EPSS: 0.59 cm LA A4 area: 24.2 cm Ao root diam IVSd: 1.0 cm LA length (vol) : 17.0 cm LVPWd: 1.0 cm RA vol Aortic Jxn: 3.1 cm LA vol: 79.9 ml : 50.7 ml asc Aorta Diam LA vol index RA : 24.3 mm/ Ao Arch Diam (Prox RVDd major Trans): 2.9 cm IVC diam: 1.7 cm : 5.7 cm LV matthews. diameter/BSA LV sys. diameter/BSA RVD2 (mid) (cm/m^2): 2.3 (cm/m^2): 1.6 : 3.3 cm Doppler Measurements & Calculations Ao V2 max MV E max ezra MV E/A: 0.98 TR max ezra : 203.5 cm/sec : 73.0 cm/sec Med Peak E' Ezra : 261.9 cm/sec Ao max P.6 mmHg MV A max ezra TR max PG Ao mean P.6 mmHg : 74.3 cm/sec E/E' med: 7.3 : 27.4 mmHg LVOT Max Ezra MV P1/2t Lat Peak E' Ezra PA V2 max : 163.1 cm/sec : 44.4 msec : 118.6 cm/sec NEERU(I,D): 2.8 cm E/E' lat: 6.2 PA mean PG sev ratio: 0.80 E/e' average: 6.7 Pulm A Revs Dur PA Accel Time : 0.11 sec MV P1/2t max ezra Ao V2 mean LV V1 max PG PA V2 mean : 128.4 cm/sec : 80.3 cm/sec MVA(P1/2t): 5.0 cm2 Ao V2 VTI: 32.5 cmLV V1 VTI: 26.0 cm NEERU(V,D): 2.8 cm2 NEERU indexed to BSA (cm^2/m^2): 1.3 Reading Physician:PM Report status: Addendum REPORT#: [id number] Assessment & Plan 71-year-old female who presents with CVA CVA -MRI of the brain showed no acute stroke on 01/24/17: Thought to be a TIA in stead -CT angiogram -Echo: Showed no acute cardiac processes normal EF of 60-65% -Lipid panel within normal limits -Hemoglobin A1c 5.3 within normal limits -Plavix 75 mg daily -Disontinue aspirin 81 mg daily: Discussed with Dr. Gutierrez, he agrees - was consulted I personally spoke with him and he stated that he would see the patient: Dr. Gutierrez feels the flashes and lights are due to orthostatic hypotension, says to optimize her BP control, he says to control her globus/gerd sensation better. -OT states that the patient is cleared from their standpoint however he feels the patient may need a walker for stability -PT to evaluate and give recommendations -Speech and swallow eval recommend soft diet: Barium swallow is ordered this AM COPD -Currently stable -Continue oxygen 3 L continuously -Albuterol when necessary GERD (stable) -Continue home medication -- GI is consulted, they will do an EGD tomorrow AM, they will not do any interventions due to her plavix. We appreciate their consult/recs Hypertension (controlled) -Continue lisinopril 10 mg daily: Hold due to concern for hypotension -Continue diltiazem 300 mg daily: Changed this to 240 mg Orhtostatic Hypotension: -- NSS fluids 100 cc/hr -- Patient is not able to drink fluids well per daughter. We adjusted her BP meds -- Consulted GI as above CKD stage III (baseline Cr. 3 as reported by patient-unsure if this is accurate) -Creatinine currently 1.07 -We will hydrate patient prior to and post contrast studies -Continue to monitor Elevated troponins -Most likely secondary to CVA/TIA -Trend troponins currently stable -Echo: Showed no acute cardiac processes normal EF of 60-65% -Cardiology was consulted from the ER DVT prophylaxis: SCDs, and ambulation Disposition: The patient seems to be progressing well and returning back to her normal baseline status. We will continue to follow up with physical therapy for their recommendations. We will also await recommendations from Dr. gutierrez and Dr. Velasco Code Status: Full code VTE Mechanical Devices: Intermittant Pneumatic CD Resuscitation Status: CPR: Attempt Resuscitation Desi Calderon DO Jan 25, 2017 05:13
--- NOTE | 2017-01-25 20:39 | NUR ---
SOB/NEB After returning from bathroom patient became very short of breath gave prn neb treatment w/effect
[2017-01-25] MEDS: Diltiazem CD 240 mg ER24 Capsule PO SCH (22:41)
[2017-01-26] VITALS (16 sets, daily range): BP systolic 114–170; BP diastolic 55–83; PULSE 69–114; RESP 16–22; O2SAT 91–99
[2017-01-26] MEDS ORDERED: Lactated Ringer's 1,000 ML IV ONE ×2 (00:48→15:32)
[2017-01-26] MEDS: 0.9% Sodium Chloride 1,000 ML IV SCH (01:27)
[2017-01-26] MEDS: Pantoprazole 40 mg ER24 Tablet PO SCH (06:30)
[2017-01-26 07:19] LABS: Mean Corpuscular Hemoglobin 29.2 pg (27.0-35.0); Mean Corpuscular Volume 108.4 fL (81-100)
[2017-01-26] MEDS: Diltiazem CD 240 mg ER24 Capsule PO SCH (07:52)
[2017-01-26] MEDS: Fluticasone-Salmeterol 500-50 Inhaler INHALATION SCH ×2 (07:58→21:30)
[2017-01-26] MEDS ORDERED: Diltiazem CD 240 mg ER24 Capsule PO SCH (08:30)
[2017-01-26] MEDS: Ascorbic Acid 500 mg Tablet PO SCH ×2 (10:01→21:30)
[2017-01-26] MEDS: Lactobacillus Rhamnosus 10 Bil Unit Capsule PO SCH (10:06)
--- NOTE | 2017-01-26 12:08 | NUR ---
FUNERAL ATTENDANT witnessed [facility]'s signature TORSTEN GutierrezSW
--- NOTE | 2017-01-26 12:09 | NUR ---
Social work note - Continued d/c planning [employer] met with pt - pt continues on O2 - has home O2 at baseline. She is going for GI scope today and MD identifies that she will likely need to be in the hospital for 1-2 more days. Pt identifies that she has family support, but is weak and is willing to have [facility] for RN PT. Family to pick up man walker. Pt is interested in Meals on Wheels - [employer] provided resources and pt states she will call to set it up. Referral for [facility] has been made, [facility] faxed. Plan: Likely home with [facility] RN PT with family providing transportation. STEFANIE Gutierrez
[2017-01-26] MEDS ORDERED: Lactated Ringer's 1,000 ML IV SCH (15:32)
[2017-01-26] MEDS ORDERED: Ondansetron 2 mg/mL 2 mL Inj IVPUSH PRN (15:35)
[2017-01-26] MEDS ORDERED: MetoCLOpramide 5 mg/mL 2 mL Inj IVPUSH PRN (15:35)
--- NOTE | 2017-01-26 15:35 | PCM.HPANE ---
Patient Data Surgeon Admitting Provider:Neris Guerrero DO Attending Provider:Neris Guerrero DO Primary Care Physician:Zahira Kemp Other Provider: Reason for Visit Slurred Speech Ht/WT & BMI Height (Feet): 5 Height (Inches): 7.00 Weight (Kilograms): 77.600 Body Mass Index 26.00 Allergies Coded Allergies: Penicillins (Verified Allergy, Severe, Rash,Itching,, 01/23/17) budesonide (Verified Allergy, Severe, Restlessness, 01/23/17) formoterol (Verified Allergy, Severe, Restlessness, 01/23/17) levofloxacin (Verified Allergy, Severe, Hallucinations, 01/23/17) Past Anesthesia History Anesthesia History: Denies:: Abnormal Airway, Anesthesia Reactions, Difficult Intubation, Fam Anesthesia Reaction, Fam Malignant Hypertherm, Malignant Hyperthermia Diabetes History Hx Diabetes?: No Current Bedside Blood Glucose: 128 MRSA MRSA: No Medications Reported Medications Vit D3/Folic Acid/B2/B6/B12 (Folgard Tablet)1 Each Tablet1 Each PO DAILY 01/24/17 Fluticasone/Salmeterol (Advair Hfa 115-21 Mcg Inhaler)12 Gm Hfa.aer.ad2 Puff IH BID #1 INHALER Ref 0 01/24/17 Esomeprazole Magnesium 40 Mg Capsule.dr40 Mg PO DAILY 01/23/17 Ascorbic Acid (Vitamin C)1,000 Mg Tab.chew1,000 Mg PO DAILY Ref 0 01/23/17 Lactobacillus Combination No.4 (Probiotic)1 Each Capsule1 Each PO DAILY 01/23/17 Albuterol HFA (Proair HFA)8.5 Gm Hfa.aer.ad2 Puffs INHALATION Q4H PRN For Shortness of Breath #1 INHALER 01/23/17 Lisinopril 10 Mg Umbmta85 Mg PO DAILY 30 Days Ref 0 01/23/17 Ferrous Sulfate 325 Mg Tablet.dr325 Mg PO DAILY 30 Days Ref 0 01/23/17 Diltiazem ER 300 Mg Tab.er.02m983 Mg PO DAILY Ref 0 01/23/17 Aspirin 81 Mg Emxprg16 Mg PO DAILY Ref 0 01/23/17 Albuterol Neb Soln 2.5 Mg/3 Ml Vial.neb2.5 Mg INHALATION QID PRN For Shortness of Breath Ref 0 01/23/17 Discontinued Reported Medications Fluticasone/Salmeterol (Advair Hfa 230-21 Mcg Inhaler)12 Gm Hfa.aer.ad2 Puff IH BID #1 INHALER Ref 0 01/23/17 Montelukast 10 Mg Hgllpu05 Mg PO HS Ref 0 01/23/17 Ascorbic Acid/Ascorbate Sodium (Vit C-Tami Hips 500 mg Chew Tb)500 Mg Tab.chew1, 000 Mg PO BID 01/23/17 Fluticasone/Salmeterol (Advair Hfa 115-21 Mcg Inhaler)12 Gm Hfa.aer.ad2 Puff IH BID #1 INHALER Ref 0 01/23/17 History History of ENT Problems?: No HEENT History: Denies:: Cataracts Dysphagia Glaucoma Sinus Problem Denture Type: None Teeth Condition: Within Normal Limits Hx of Heart Problems?: No Cardiovascular History: Positive for:: Hypertension Denies:: Cardiac Surgery Chest Pain Congestive Heart Failure Edema Heart Murmur Irregular Heartbeat Pacemaker Thrombophlebitis Hx of Respiratory Problem?: Yes Respiratory History: Positive for:: Asthma COPD Denies:: Chest Surgery Dyspnea Emphysema Hemoptysis Pneumonia Tuberculosis Other Resp Pertinent History: recent sinus infection, currently on ABX Hx Neurologic Problems?: Yes Neurological History: Positive for:: CVA Dizziness (mild vertigo with sinus infections) TIA (RECENT AND REASON FOR ADMISSION) Denies:: Alzheimer's Disease Dementia Headaches Parkinson's Disease Seizures Hx of GI Problems?: Yes Hx of Problems?: No Genitourinary History: Denies:: HX of Hemodialysis Kidney Stones Urinary Tract Infection HX of Peritoneal Dialysis: No Other Pertinent History: stress incont Female Hx: Denies:: Currently Endometriosis Pelvic Inflammatory Problems with Breasts? Hx Musculoskeletal Problems?: No Musculoskeletal History: Denies:: Back Injury Joint Replacement Musculoskeletal Trauma Hx of Psycho/Social Problems?: No Psycho Social History: Denies:: Anxiety Bipolar Disorder Hx Depression Suicide Attempt Hx Surgeries?: No Hx Any Other Health Problems?: No History Blood Transfusions: Positive for:: Accept Blood Products? Denies:: Blood Transfusions Hx Diabetes: NoBedside Blood Glucose: 128 Hx Alcohol Use: NoHx Substance Use: No Smoking Status: Unknown if Ever Smoker Stop/Bang Treated for Sleep Apnea?: No Do You Have a CPAP Machine?: No S-Snoring: Do You Snore Loudly: No T-Tired: feel tired, fatigued: No O-Obsered: Observed not breath: No P-Blood Pressure: treated: Yes B- Body Mass Index > 35 kg/m2: No A- Age over 50: Yes N- Neck Large Circumference: No G- Gender Male: No JAN Total Score: 1 JAN Risk Assessment: Low Risk, <3 Yes Risk Assessment Category Category 1A: Patient has history of documented sleep apnea, and HAS NOT received any narcotic, sedative or anesthesia administration during this stay. Category 1B: Patient has history of documented sleep apnea, and HAS received any narcotic , sedative or anesthesia administration during this stay Category 2: Patient has SUSPECTED Obstructive Sleep Apnea, and HAS received any narcotic , sedative or anesthesia administration during this stay. Category 3: Patient has SUSPECTED Obstructive Sleep Apnea and HAS NOT received narcotic, sedative or anesthesia administration during this stay. Category 4: Outpatient in Procedural Areas with known sleep apnea or who screen positive for High Risk via the STOP/BANG questionnaire. Exam Exam Vital Signs Vital Signs Date Time Temp Pulse Resp B/P Pulse Ox O2 Delivery O2 Flow Rate FiO2 01/26/17 11:16 37.0 69 18 132/78 96 Nasal Cannula 1.00 01/26/17 09:45 Nasal Cannula 2.00 01/26/17 08:00 92 01/26/17 08:00 Supplement Oxygen 01/26/17 07:57 91 145/81 01/26/17 07:53 91 144/81 01/26/17 07:50 37.0 92 18 145/77 99 Nasal Cannula 2.00 General Appearance: Oriented X3 HEENT/AIRWAY: MP 2 Lungs: Normal Air Movement Heart: Regular Rate/Rhythm Meds/Labs/Diagnostics Admission Meds Current Medications Diltiazem HCl (Cardizem CD) 240 mg DAILY PO Last administered on 01/26/17 07: 52; Start 01/25/17 at 20:15 Lisinopril (Zestril) 10 mg DAILY PO Last administered on 01/26/17 07:52; Start 01/26/17 at 08:30 Propranolol HCl (Inderal) 20 mg ONCE ONCE PO Last administered on 01/26/17 10 :02; Start 01/26/17 at 09:00; Stop 01/26/17 at 09:16; Status DC Bedside Blood Glucose: 128 Labs Test 01/23/17 10:25 01/23/17 13:00 01/24/17 07:04 01/25/17 06:17 Neutrophils (%) (Auto) 68.6% (40-74) Lymphocytes (%) (Auto) 15.5% (14-46) Monocytes (%) (Auto) 11.8% (4-12) Eosinophils (%) (Auto) 3.6% (0-5) Basophils (%) (Auto) 0.2% (0-3) Prothrombin Time 9.3sec (8.1-12.5) Prothromb Time International Ratio 0.87ratio Hemoglobin A1c 5.3% (4.8-5.6) Magnesium Level 2.5mg/dL (1.6-2.6) Urine Color Straw (YELLOW) Urine Appearance Hazy (CLEAR,HAZY) Urine pH 5.5 (5.0-8.0) Urine Specific [place] 1.020 (1.003-1.035) Urine Protein 30mg/dL (NEG,TRACE) Urine Glucose (UA) Negativemg/dL (NEGATIVE) Urine Ketones Negativemg/dL (NEGATIVE) Urine Occult Blood Negative (NEGATIVE) Urine Nitrite Positive (NEGATIVE) Urine Bilirubin Negative (NEGATIVE) Urine Urobilinogen Normalmg/dL (NORMAL) Urine Leukocyte Esterase Negative (NEGATIVE) Urine RBC 0-2/hpf (0-2) Urine WBC 0-5/hpf (0-5) Urine Epithelial Cells Occasional/hpf (NONE-MOD) Urine Crystals None seen (NONE SEEN) Urine Bacteria Many/hpf (NONE-FEW) Urine Hyaline Casts None/lpf (NONE) Urine Granular Casts None seen (NONE SEEN) Urine Waxy Casts None seen (NONE SEEN) Urine Red Blood Cell Casts None seen (NONE SEEN) Urine White Blood Cell Casts None seen (NONE SEEN) Urine Mucus None seen (None Seen) Urine Trichomonas None seen (NONE SEEN) Urine Yeast None (NONE SEEN) Urinalysis Comment None Urine Culture Reflexed Indicated Triglycerides Level 72mg/dL (0-149) Cholesterol Level 165mg/dL (100-199) LDL Cholesterol, Calculated 72.600mg/dL (0-99) VLDL Cholesterol 14.400mg/dL HDL Cholesterol 78mg/dL (>39) Cholesterol/HDL Ratio 2.12 (0.0-4.4) Reticulocyte Count,Calculated 1.1% (0.6-2.6) Iron Level 28ug/dL (35-150) Total Iron Binding Capacity 213ug/dL (250-450) Percent Iron Saturation 13%sat (15-50) Unsaturated Iron Binding 185.1ug/dL Ferritin 249ng/mL (13-150) Total Bilirubin < 0.2mg/dL (0.0-1.2) Aspartate Amino Transf (AST/SGOT) 10U/L (0-50) Alanine Aminotransferase (ALT/SGPT) 6U/L (0-32) Alkaline Phosphatase 46U/L (25-165) Troponin T < 0.010ug/L (0.0-0.011) Total Protein 5.0g/dL (6.4-8.4) Albumin 3.0g/dL (3.4-5.0) Vitamin B12 Level 227pg/mL (211-946) Folate 15.4ng/mL (>3.0) Test 01/26/17 06:55 White Blood Count 8.8th/mm3 (3.8-10.1) Red Blood Count 3.08mil/mm3 (3.90-5.20) Hemoglobin 9.0g/dL (12.0-15.6) Hematocrit 33.4% (35.0-46.0) Mean Corpuscular Volume 108.4fL (81-100) Mean Corpuscular Hemoglobin 29.2pg (27.0-35.0) Mean Corpuscular Hemoglobin Concent 26.9% (32.0-37.0) Red Cell Distribution Width 12.9% (12.3-15.4) Platelet Count 129bil/L (150-400) Sodium Level 146mEq/L (134-144) Potassium Level 5.1mEq/L (3.5-5.2) Chloride Level 98mEq/L (97-108) Carbon Dioxide Level 42mmol/L (18-29) Blood Urea Nitrogen 20mg/dL (8-27) Creatinine 1.03mg/dL (0.57-1.00) Estimat Glomerular Filtration Rate 76mL/min (>59) Glucose Level 95mg/dL (60-99) Calcium Level 8.8mg/dL (8.5-10.1) Plan Impression Patient chart reviewed, patient interviewed and anesthestic plan with risks, benefits, and alternatives discussed, and informed consent obtained. ASA Physical Status: ASA4 Life Threatening Anesthetic Plan: MAC Bene/Risks/Altern/Consents: Yes HP Complete Prior to Induction: Yes David Howell MD Jan 26, 2017 15:35
--- NOTE | 2017-01-26 15:40 | NUR ---
Endo Patient left floor via stretcher to endo at 1520. solar energy technician notified. Addendum: 01/26/17 at 1713 by NINOSKA JANSEN RN patient returned to floor at 1655. maintenance service technician notified.
--- NOTE | 2017-01-26 16:28 | ENDO ---
[address] [address] ENDOSCOPY PROCEDURE PATIENT: DANNY DICKENS : 1945 MR#: [id number] ADMIT: 01/23/2017 JOB ID: [id number] TYPE OF OPERATION: Esophagogastroduodenoscopy, biopsy. PREOPERATIVE DIAGNOSIS(ES): Dysphagia. POSTOPERATIVE DIAGNOSIS(ES): 1. A small esophageal diverticulum seen at 38 cm from the incisors. 2. A 2 mm gastric ulcer, clean based, nonbleeding, seen at the antrum. Status post biopsy in the antrum. ANESTHESIA: Monitored anesthesia care. COMPLICATION: None. BLOOD LOSS: Minimal. DESCRIPTION OF PROCEDURE: After risks and benefits explained to patient, informed consent was obtained. After anesthesia administered, the upper endoscope was then into the mouth, intubated the esophagus, stomach, second portion of duodenum. Mucosa carefully examined. After procedure was done, the scope withdrawn, procedure terminated. FINDINGS: Upon inspection of the esophagus, the esophagus appeared normal except there was a diverticulum that was seen, a small one at 38 cm from the incisors. Z-line located 40 cm from incisors. No masses or ulcers or lesions were seen. Upon entering the stomach, there was a 2 mm clean based nonbleeding ulcer at the antrum of the stomach. Retroflexion was normal. No masses were seen. Duodenal bulb, first and second portion normal. Biopsies taken in antrum and body of the stomach, mid and distal esophagus. IMPRESSIONS: 1. Small distal esophageal diverticulum at 38 cm from the incisors. 2. A 2 mm, clean-based nonbleeding ulcer at the antrum of the stomach. RECOMMENDATIONS: 1. Await pathology results. 2. Carafate 1 g by mouth four times a day. 3. Would recommend anti-reflux medication such as a PPI such as Protonix 40 mg by mouth twice a day given the ulcers seen at the stomach.
[2017-01-26] MEDS: Sucralfate 1,000 mg Tablet PO SCH ×2 (18:16→21:30)
--- NOTE | 2017-01-26 20:01 | PCM.PNMED ---
Subjective Date of Service Jan 26, 2017 Subjective Patient is seen and examined. She underwent an EGD today that showed esophageal diverticulum and also her. Orthostatics have improved upon IVF hydration. No other concerns. Denies nausea, vomitng , overnight feers, chills, dyspnea more than her baseline. c/o tremor in left hand, had it before, states worse now. States her mom has parkinson's. Exam Vital Signs Vital Sign - Last Date Time Temp Pulse Resp B/P Pulse Ox O2 Delivery O2 Flow Rate FiO2 01/26/17 03:53 102 01/26/17 01:42 36.7 18 165/75 96 Nasal Cannula 2.00 Intake and Output 01/25/17 01/25/17 01/26/17 Cumulative From/Thru 15:00 23:00 07:00 01/23/17 10:12 - 01/25/17 17:52 Intake Total 1147 ml 5507 ml Output Total 1600 ml 3650 ml Balance -453 ml 1857 ml Intake Oral 800 ml 4160 ml IV Total 347 ml 1347 ml Output Urine Total 1600 ml 3650 ml # Voids 9 # Bowel Movements 1 2 Exam General: NAD, laying in bed HEENT: NCAT, poor dentition Eyes: [place] conjunctivae. No ptosis, PERRL Neck: No masses, trachea midline, no thyromegaly Lungs: CTA with normal respiratory effort, no crackles or wheezes CV: RRR, no murmurs/rubs/gallops, normal PMI GI: Soft, non-tender with no hepatosplenomegaly MSK: Her right hand appears to be weak today. Lower extremities strength equal and symmetric Neuro: Resting tremor noted in right hand. CN II-12 grossly normal, and gagging was deferred Skin: Warm and dry. No rash, lesions or ulcers Psych: A&O X3, with appropriate affect IVs and Medications IV Fluids NSS 100 cc/hr Medications Reviewed: Medications were reviewed in detail Lab and Diagnostics Laboratory Tests Test 01/26/17 06:55 White Blood Count 8.8th/mm3 (3.8-10.1) Red Blood Count 3.08mil/mm3 (3.90-5.20) Hemoglobin 9.0g/dL (12.0-15.6) Hematocrit 33.4% (35.0-46.0) Mean Corpuscular Volume 108.4fL (81-100) Mean Corpuscular Hemoglobin 29.2pg (27.0-35.0) Mean Corpuscular Hemoglobin Concent 26.9% (32.0-37.0) Red Cell Distribution Width 12.9% (12.3-15.4) Platelet Count 129bil/L (150-400) Sodium Level 146mEq/L (134-144) Potassium Level 5.1mEq/L (3.5-5.2) Chloride Level 98mEq/L (97-108) Carbon Dioxide Level 42mmol/L (18-29) Blood Urea Nitrogen 20mg/dL (8-27) Creatinine 1.03mg/dL (0.57-1.00) Estimat Glomerular Filtration Rate 76mL/min (>59) Glucose Level 95mg/dL (60-99) Calcium Level 8.8mg/dL (8.5-10.1) Microbiology 01/25/17 Stool Occult Blood (JONN) - Final, Complete 01/23/17 Urine Culture - Final, Complete Escherichia Coli Result Diagram: 01/25/17 0617 01/25/17 1658 X-Rays, CTs and MRIs [facility] Diagnostic Imaging Department [place], [place] [id number] Patient Name: DANNY DICKENS MR#: [id number] Location: [facility] [place] Ordering Phys: Neris Guerrero DO Date of Service: 01/24/17 0800 PROCEDURE: MRI BRAIN WITHOUT CONTRAST ([id number]) INDICATIONS: WEAKNESS,SLURRED SPEECH, R/O CVA TECHNIQUE: Non-contrast axial T1 spin echo, axial T2 fast spin echo, sagittal and axial FLAIR, coronal T2 fast spin echo, axial gradient echo, axial diffusion and ADC through the brain. COMPARISON: [facility], CT, CT ANGIO BRAIN AND NECK, 01/24/2017, 13: 44. [facility], CT, CT BRAIN WO CON, 01/23/2017, 10:38. FINDINGS: Image quality: Limited by patient motion artifact. CSF spaces: Ventricles appear symmetric in size and shape. Basal cisterns are patent. No extra-axial fluid collections. Brain: No intracranial bleeds or mass effects. There is cerebral volume loss for age. There are periventricular and deep white matter chronic small vessel ischemic changes. Incidental note made of prominent perivascular spaces in the cerebral hemispheres. A Brainstem appears normal. Diffusion-weighted images show no acute ischemic insults. No chronic ischemic insults. Normal intravascular flow voids are present. Skull and face: Calvarial bone marrow is normal in signal. Orbits are normal. Sinuses: Sinuses and mastoids are clear. IMPRESSION: 1. No acute intracranial disease process. 2. Mild, diffuse on loss. 3. Mild periventricular and subcortical white matter chronic microvascular ischemic changes. 4. No areas of acute or chronic infarction. 5. Prominent cerebral hemisphere perivascular spaces. Prominent perivascular spaces in the left frontal and parietal lobes correspond to hypodensities identified by prior CT scans. Dictated by: Patti Thomas MD, PhD on 01/24/2017 at 15:05 Approved by: Patti Thomas MD, PhD on 01/24/2017 at 15:11 [facility] [place] [address] Patient Name: DANNY DICKENS MR#: [id number] Location: [facility] [place] Ordering Phys: Neris Guerrero DO Date of Service: 01/24/17 0800 PROCEDURE: CT ANGIO HEAD AND NECK (P) INDICATIONS: R/O Cerebrial Vascular Disease Intracranial TECHNIQUE: Pre-contrast 4.5 mm thick sections acquired from the foramen magnum to the vertex. After the administration of intravenous contrast, 1 mm thick sections acquired from the aortic arch through the [place]. Post-contrast 4.5 mm thick sections then re-acquired from the foramen magnum to the vertex. 3- dimensional jnavowr-gtmbvstnq-eumyoardxn (MIP) and/or volume rendering reformats were acquired of the central intracranial vasculature and neck separately. For radiation dose reduction, the following was used: automated exposure control, adjustment of mA and/or kV according to patient size. COMPARISON: [facility], CT, CT BRAIN WO CON, 01/23/2017, 10:38. FINDINGS: Image quality: Excellent. BRAIN: CSF spaces: Ventricles are normal in size and shape. Basal cisterns are patent. No extra-axial fluid collections. Brain: No midline shift. No intracranial bleeds or masses. Small areas of loss of normal morton-white matter differentiation noted in the left parietal lobe and left frontal lobe suspicious for subacute infarcts. Skull and face: Calvarium and facial bones appear intact, without suspicious lesions. Orbits appear normal. Sinuses: Sinuses and mastoids are clear. HEAD CT ANGIOGRAPHY: Anterior circulation: Intracranial internal carotid arteries are normal in size and flow. Atherosclerotic calcifications noted in cavernous segment of the internal carotid arteries bilaterally which cause multifocal mild stenoses. The flow within the paired anterior cerebral arteries is normal and symmetric. The flow within the middle cerebral arteries is normal and symmetric. The anterior communicating artery is seen. No aneurysms are seen. Posterior circulation: Visualized portions of the vertebral arteries demonstrate normal caliber, and join to form a normal appearing basilar artery. Atherosclerotic calcification noted in the proximal V4 segment of the left vertebral artery which does not cause measurable stenosis. Flow within the posterior cerebral arteries is normal and symmetric. No aneurysms are seen. There is normal contrast enhancement of the dural sinuses. NECK CT ANGIOGRAPHY: Carotid system: The great vessels demonstrate a conventional anatomy as they arise from the aortic arch. The left which artery arises from the aortic arch proximal to the origin of the left subclavian artery. The origins of the common carotid arteries appear patent. The common carotid arteries demonstrate normal caliber and courses. The bifurcation regions are both widely patent. The internal carotid arteries demonstrate normal calibers and courses. Minimal atherosclerotic desiccation noted in the origin of the left internal carotid artery which does not cause measurable stenosis. Posterior circulation: The origins of the vertebral arteries both appear widely patent. The more superior extracranial portions of both vertebral arteries also demonstrate normal courses and calibers. They join to form a normal appearing basilar artery. Soft tissues: Visualized neck soft tissues demonstrate no suspicious abnormalities. 1.1 cm soft tissue density lesion noted in the left paramedian posterior upper back subcutaneous fat likely represents a small sebaceous cyst. Bones: Cervical spine degenerative disc disease and facet arthropathy are noted. No suspicious bony lesions. Visualized cervical spine appears normally aligned. IMPRESSION: 1. No hemodynamically significant stenosis. 2. No vascular occlusion. 3. No intracranial hemorrhage. 4. Small hypodensities involving the left frontal lobe and left parietal lobe suspicious for subacute infarcts. Dictated by: Patti Thomas MD, PhD on 01/24/2017 at 14:27 Approved by: Patti Thomas MD, PhD on 01/24/2017 at 14:44 [facility] [place] [address] Patient Name: DANNY DICKENS MR#: [id number] [place] [facility] [place]ing Phys: Johny Green MD Date of Service: 01/23/17 1029 PROCEDURE: CT BRAIN WITHOUT CONTRAST ([id number]) INDICATIONS: Stroke. Slurred speech. TECHNIQUE: Noncontrast 4.5 mm thick angled axial sections acquired from the foramen magnum to the vertex, with coronal reformats. COMPARISON: None. FINDINGS: Image quality: There is mild motion artifact. CSF spaces: Basal cisterns are patent. No extra-axial fluid collections. Ventricles are normal in size and shape. Brain: No intracranial hemorrhage, mass, or mass effect. There is subtle effacement of the morton-white matter differentiation involving a small region of the left parietal lobe. Skull and face: Calvarium and visualized facial bones appear intact, without suspicious lesions. Sinuses: Visualized sinuses and mastoids are clear. IMPRESSION: 1. Subtle effacement of morton-white matter differentiation involving a small region of the left parietal lobe suggestive of an acute infarct. 2. No acute intracranial hemorrhage. Findings discussed with Dr. Green on 01/23/17 at 11:08 AM. Dictated by: Bobby Mejía M.D. on 01/23/2017 at 11:04 Approved by: Bobby Mejía M.D. on 01/23/2017 at 11:10 [facility] [place] [address] Patient Name: DANNY DICKENS MR#: [id number] Location: [facility] [place] Ordering Phys: Desi Calderon DO Date of Service: 01/25/17 1349 PROCEDURE: X-RAY BARIUM SWALLOW ESOPHAGUS ([id number]) INDICATIONS: globus, dysphagia COMPARISON: None. FINDINGS: Function: There is mild esophageal dysmotility. Mild elicited gastroesophageal reflux. There is normal transit of a calibrated barium tablet through the esophagus into the stomach. Morphology: Air-contrast images demonstrate normal mucosal morphology. Single contrast views show no esophageal strictures or extrinsic mass effects. Small left lateral diverticulum involving the distal esophagus is present. Small hiatal hernia.. Limited images of the stomach demonstrate normal appearance. The attending physician was personally present in the room during the examination. IMPRESSION: 1. Mild esophageal dysmotility. 2. Small distal esophageal diverticula along the left lateral aspect of the esophagus. 3. Small reducible hiatal hernia and mild spontaneous gastroesophageal reflux. Dictated by: Rico CARLISLE Interpreted: Cyril Curry MD on 01/25/2017 at 15:41 Transcribed by: SHALONDA on 01/25/2017 at 15:43 Approved by: Cyril Curry M.D. on 01/25/2017 at 16:42 Cardiac Echo Impressions [facility] [place] [address] Patient Name: DANNY DICKENS MR#: [id number] Location: [facility] [place] Ordering Phys: Sugar Villalpando MD Date of Service: 01/23/[address] [address] Echocardiogram Report Name: DANNY DICKENS AStudjason Date : 01/23/2017 Heigh t: 72 in Hospital Exam Location: [facility] Weigh t: 200 lb Gender: Female BSA: 2.1 m2 : 1945 Age: 71 yrs BP: 1 39/74 mmHg Reason For Study: STROKE Ordering Physician: Sugar Villalpando Performed By: Radha Pete Referring Physician: DR. ESTRADA, DR. RICE Interpretation Summary The left ventricle is normal in size, wall thickness, and systolic function without any focal wall motion abnormalities. The ejection fraction is estimated to be 60-65%. The right ventricle is normal in size and function. The right ventricular systolic pressure is estimated at 30 mmHg assuming a right atrial pressure of 3 mm Hg. The left atrium is mildly dilated. Right atrial size is normal. There is no significant valvular heart disease. The aortic root is normal size. No obvious source for cardioembolic stroke. Procedure: A two-dimensional transthoracic echocardiogram with color flow and Doppler was performed. The study quality was technically adequate. There is no prior echocardiogram noted for this patient. The patient was in normal sinus rhythm during the exam. Left Ventricle: The left ventricle is normal in size, wall thickness, and systolic function without any focal wall motion abnormalities. The ejection fraction is estimated to be 60-65%. Assessment of diastolic parameters indicates normal left ventricular diastolic function and normal filling pressures. Right Ventricle: The right ventricle is normal in size and function. Atria: The left atrium is mildly dilated. Right atrial size is normal. There is no Doppler evidence for an atrial septal defect. Mitral Valve: The mitral valve leaflets appear normal. There is no evidence of stenosis, fluttering, or prolapse. There is trace mitral regurgitation. Aortic Valve: The aortic valve is trileaflet. The aortic valve opens well. No aortic regurgitation is present. Tricuspid Valve: The tricuspid valve leaflets are thin and pliable. There is mild tricuspid regurgitation. The right ventricular systolic pressure is estimated at 30 mmHg assuming a right atrial pressure of 3 mm Hg. Pulmonic Valve: The pulmonic valve leaflets are thin and pliable; valve motion is normal. There is a trace or physiologic amount of pulmonic regurgitation. There is no significant valvular heart disease. Great Vessels: The aortic root is normal size. The dimensions of the ascending aorta are normal. The pulmonary artery is normal size. The IVC is of normal diameter and collapses greater than 50% with a sniff. This suggests a low right atrial pressure of 3 mm Hg. Pericardium/ Pleura There is no pericardial effusion. There is no pleural effusion. MMode/2D Measurements & Calculations LVIDd: 4.9 cm LA dimension: 3.8 cm RA long axis LVOT diam: 2.1 cm LVIDs: 3.4 cm AoV Opening FS: 31.4 % LA A2 area: 23.1 cm RA area EPSS: 0.59 cm LA A4 area: 24.2 cm Ao root diam IVSd: 1.0 cm LA length (vol) : 17.0 cm LVPWd: 1.0 cm RA vol Aortic Jxn: 3.1 cm LA vol: 79.9 ml : 50.7 ml asc Aorta Diam LA vol index RA : 24.3 mm/ Ao Arch Diam (Prox RVDd major Trans): 2.9 cm IVC diam: 1.7 cm : 5.7 cm LV matthews. diameter/BSA LV sys. diameter/BSA RVD2 (mid) (cm/m^2): 2.3 (cm/m^2): 1.6 : 3.3 cm Doppler Measurements & Calculations Ao V2 max MV E max ezra MV E/A: 0.98 TR max ezra : 203.5 cm/sec : 73.0 cm/sec Med Peak E' Ezra : 261.9 cm/sec Ao max P.6 mmHg MV A max ezra TR max PG Ao mean P.6 mmHg : 74.3 cm/sec E/E' med: 7.3 : 27.4 mmHg LVOT Max Ezra MV P1/2t Lat Peak E' Ezra PA V2 max : 163.1 cm/sec : 44.4 msec : 118.6 cm/sec NEERU(I,D): 2.8 cm E/E' lat: 6.2 PA mean PG sev ratio: 0.80 E/e' average: 6.7 Pulm A Revs Dur PA Accel Time : 0.11 sec MV P1/2t max ezra Ao V2 mean LV V1 max PG PA V2 mean : 128.4 cm/sec : 80.3 cm/sec MVA(P1/2t): 5.0 cm2 Ao V2 VTI: 32.5 cmLV V1 VTI: 26.0 cm NEERU(V,D): 2.8 cm2 NEERU indexed to BSA (cm^2/m^2): 1.3 Reading Physician:04:14 PM ADDENDUM Version [address] [address] Echocardiogram Report Name: DANNY DICKENS Date : 01/23/2017 Heigh t: 72 in Hospital Exam Location: [facility] Weigh t: 200 lb Gender: Female BSA: 2.1 m2 : 1945 Age: 71 yrs BP: 1 39/74 mmHg Reason For Study: STROKE Ordering Physician: Sugar Villalpando Performed By: Radha Pete Referring Physician: DR. ESTRADA, DR. RICE Interpretation Summary The left ventricle is normal in size, wall thickness, and systolic function without any focal wall motion abnormalities. The ejection fraction is estimated to be 60-65%. The right ventricle is normal in size and function. The right ventricular systolic pressure is estimated at 30 mmHg assuming a right atrial pressure of 3 mm Hg. The left atrium is mildly dilated. Right atrial size is normal. There is no significant valvular heart disease. The aortic root is normal size. No obvious source for cardioembolic stroke. Interpreted by Dr. Rivas. Procedure: A two-dimensional transthoracic echocardiogram with color flow and Doppler was performed. The study quality was technically adequate. There is no prior echocardiogram noted for this patient. The patient was in normal sinus rhythm during the exam. Left Ventricle: The left ventricle is normal in size, wall thickness, and systolic function without any focal wall motion abnormalities. The ejection fraction is estimated to be 60-65%. Assessment of diastolic parameters indicates normal left ventricular diastolic function and normal filling pressures. Right Ventricle: The right ventricle is normal in size and function. Atria: The left atrium is mildly dilated. Right atrial size is normal. There is no Doppler evidence for an atrial septal defect. Mitral Valve: The mitral valve leaflets appear normal. There is no evidence of stenosis, fluttering, or prolapse. There is trace mitral regurgitation. Aortic Valve: The aortic valve is trileaflet. The aortic valve opens well. No aortic regurgitation is present. Tricuspid Valve: The tricuspid valve leaflets are thin and pliable. There is mild tricuspid regurgitation. The right ventricular systolic pressure is estimated at 30 mmHg assuming a right atrial pressure of 3 mm Hg. Pulmonic Valve: The pulmonic valve leaflets are thin and pliable; valve motion is normal. There is a trace or physiologic amount of pulmonic regurgitation. There is no significant valvular heart disease. Great Vessels: The aortic root is normal size. The dimensions of the ascending aorta are normal. The pulmonary artery is normal size. The IVC is of normal diameter and collapses greater than 50% with a sniff. This suggests a low right atrial pressure of 3 mm Hg. Pericardium/ Pleura There is no pericardial effusion. There is no pleural effusion. MMode/2D Measurements & Calculations LVIDd: 4.9 cm LA dimension: 3.8 cm RA long axis LVOT diam: 2.1 cm LVIDs: 3.4 cm AoV Opening FS: 31.4 % LA A2 area: 23.1 cm RA area EPSS: 0.59 cm LA A4 area: 24.2 cm Ao root diam IVSd: 1.0 cm LA length (vol) : 17.0 cm LVPWd: 1.0 cm RA vol Aortic Jxn: 3.1 cm LA vol: 79.9 ml : 50.7 ml asc Aorta Diam LA vol index RA : 24.3 mm/ Ao Arch Diam (Prox RVDd major Trans): 2.9 cm IVC diam: 1.7 cm : 5.7 cm LV matthews. diameter/BSA LV sys. diameter/BSA RVD2 (mid) (cm/m^2): 2.3 (cm/m^2): 1.6 : 3.3 cm Doppler Measurements & Calculations Ao V2 max MV E max ezra MV E/A: 0.98 TR max ezra : 203.5 cm/sec : 73.0 cm/sec Med Peak E' Ezra : 261.9 cm/sec Ao max P.6 mmHg MV A max ezra TR max PG Ao mean P.6 mmHg : 74.3 cm/sec E/E' med: 7.3 : 27.4 mmHg LVOT Max Ezra MV P1/2t Lat Peak E' Ezra PA V2 max : 163.1 cm/sec : 44.4 msec : 118.6 cm/sec NEERU(I,D): 2.8 cm E/E' lat: 6.2 PA mean PG sev ratio: 0.80 E/e' average: 6.7 Pulm A Revs Dur PA Accel Time : 0.11 sec MV P1/2t max ezra Ao V2 mean LV V1 max PG PA V2 mean : 128.4 cm/sec : 80.3 cm/sec MVA(P1/2t): 5.0 cm2 Ao V2 VTI: 32.5 cmLV V1 VTI: 26.0 cm NEERU(V,D): 2.8 cm2 NEERU indexed to BSA (cm^2/m^2): 1.3 Reading Physician:PM Report status: Addendum REPORT#: [id number] Assessment & Plan 71-year-old female who presents with CVA CVA/TIA, POA -MRI of the brain showed no acute stroke on 01/24/17: Thought to be a TIA in stead -CT angiogram -Echo: Showed no acute cardiac processes normal EF of 60-65% -Lipid panel within normal limits -Hemoglobin A1c 5.3 within normal limits -Plavix 75 mg daily -Disontinue aspirin 81 mg daily: Discussed with Dr. Gutierrez, he agrees - was consulted I personally spoke with him and he stated that he would see the patient: Dr. Gutierrez feels the flashes and lights are due to orthostatic hypotension, says to optimize her BP control, he says to control her globus/gerd sensation better. -OT states that the patient is cleared from their standpoint however he feels the patient may need a walker for stability -PT to evaluate and give recommendations -Speech and swallow eval recommend soft diet: Barium swallow is ordered on and showed mild esophageal dysmotility and a small esophageal diverticulum. Anemia of chronic disease, POA -- Was given 200 mg venofer infusion yesterday. Will repeat every other day. -- Will stop iron supplementation for now. -- Plan to give second whenever infusion tomorrow COPD -Currently stable -Continue oxygen 3 L continuously -Albuterol when necessary GERD (stable) -Continue home medication -- GI is consulted, they will do an EGD tomorrow AM, they will not do any interventions due to her plavix. We appreciate their consult/recs: Dr. Nettles has performed EGD, A 2 mm, round clean-based nonbleeding ulcer at the antrum of the stomach. They recommend Carafate 4 times a day, pantoprazole 40 twice a day -- Discussed but the patient is going with Plavix, pharmacy says to use pantoprazole Hypertension (controlled) -Continue lisinopril 10 mg daily: Hold due to concern for hypotension -Continue diltiazem 300 mg daily: Increased this to 300 mg Orhtostatic Hypotension: -- NSS fluids 100 cc/hr: Discontinue today -- Patient is not able to drink fluids well per daughter. We adjusted her BP meds -- Consulted GI as above Tremor, POA: -- Discussed the possibility of cerebellar versus essential tremor versus orthostatics tremors versus Parkinson's -- Propranolol 20 mg 1 time dose is given, we will consider increasing it to 2- 33 times a day if works -- She can follow up with Dr. gutierrez as outpatient CKD stage III (baseline Cr. 3 as reported by patient-unsure if this is accurate) -Creatinine currently around 1 -We will hydrate patient prior to and post contrast studies -Continue to monitor Elevated troponins -Most likely secondary to CVA/TIA -Trend troponins currently stable -Echo: Showed no acute cardiac processes normal EF of 60-65% -Cardiology was consulted from the ER DVT prophylaxis: SCDs, and ambulation Disposition: The patient seems to be progressing well and returning back to her normal baseline status. We will continue to follow up with physical therapy for their recommendations. We will also await further recommendations from Dr. gutierrez and Dr. Velasco Code Status: Full code VTE Mechanical Devices: Intermittant Pneumatic CD Resuscitation Status: CPR: Attempt Resuscitation Desi Calderon DO Jan 26, 2017 05:19
[2017-01-27] VITALS (10 sets, daily range): BP systolic 120–136; BP diastolic 68–79; PULSE 62–88; RESP 16–20; O2SAT 96–100
--- NOTE | 2017-01-27 02:32 | NUR ---
Postural Blood pressures Lying down BP 136/74 hr 83 Sitting BP 135/77 hr 79 Standing 120/79 hr 86 Pt c/o dizziness when sitting up and standing up. Steady on feet using FWW to BR. Denies headache. Arm tremors noted when sitting up. VSS see charted vitals . Care ongoing.
--- NOTE | 2017-01-27 05:28 | NUR ---
Shift Note Assumed pt care at 1900 pt a/o able to make needs known, continues with 02 at 2l/min, dyspneic with exertion, denies pain/discomfort throughout night, qhrly checks done throughout night, call light in reach.
[2017-01-27] MEDS: Sucralfate 1,000 mg Tablet PO SCH ×3 (05:52→16:30)
[2017-01-27] MEDS: Pantoprazole 40 mg ER24 Tablet PO SCH (05:52)
[2017-01-27 07:21] LABS: Mean Corpuscular Hemoglobin 29.4 pg (27.0-35.0); Mean Corpuscular Volume 108.9 fL (81-100)
[2017-01-27] MEDS ORDERED: Iron Sucrose Inj 200 MG in 0.9% Sodium Chloride 100 ML IV ONE (08:00)
--- NOTE | 2017-01-27 08:19 | PCM.DIMED ---
Discharge Instructions Date of Service Jan 27, 2017 Dates of Hospitalization Jan 23, 2017 at 13:32 Discharge Diagnosis Discharge Diagnosis TIA, Anemia of Chronic Disease, orthostatic hypotension due to inadequate hydration vs. autonomic dysfunction, COPD on 3L of oxygen, HTN, GERD, esophageal diverticulum Diet Other (soft, heart healthy) Activity Limited until seen by PCP, Home Health Phyical Therapy Call your provider Fever or Chills, Shortness of breath, Bleeding, Chest pain, Vomitting, Excessive diarrhea, Weakness (unilateral), Other Patient Instructions Please go for 3 more venofer infusions in the next 10 ten days Please start your new anxiety medication, tremor medication. Stop Aspirin, take plavix as prescribed. Stay well hydrated to avoid drop in blood pressure with positional changes. Use front wheeled walker for ambulation Follow-up plan F/U with PCP in one week F/U with Dr. Reyna in 2 weeks F/U with Dr. Velasco in 2 weeks F/U for iron infusions 3 times in the next ten days F/U Iron, TIBC, Ferritin , H&H in 2 weeks (upon completion of infusions) Desi Calderon DO Jan 27, 2017 08:19
[2017-01-27] MEDS ORDERED: PROP20TA5 PO (08:23)
[2017-01-27] MEDS ORDERED: IRON100V IV (08:23)
[2017-01-27] MEDS ORDERED: BUSP15TA3 PO (08:23)
[2017-01-27] MEDS ORDERED: CLOP75TA28 PO (08:23)
[2017-01-27] MEDS ORDERED: ATOR10TA66 PO (08:23)
[2017-01-27] MEDS ORDERED: DILT120C83 PO (08:23)
[2017-01-27] MEDS ORDERED: PANT40TA3 PO ×2 (08:23→08:26)
--- NOTE | 2017-01-27 08:24 | PCM.PNSURG ---
Subjective Date of Service: Jan 27, 2017 Date of Service: Jan 27, 2017 Visit Information: Subjective: s/p egd yesterday. No overt signs gi bleed. results of egd relayed this am to pt. no complaints from gi standpoint Postop General: No Complaints Objective Vital Sign- Last 8 Hours Date Time Temp Pulse Resp B/P Pulse Ox O2 Delivery O2 Flow Rate FiO2 01/27/17 06:29 36.7 84 20 131/74 99 Nasal Cannula 2.00 01/27/17 05:36 75 01/27/17 01:59 36.7 86 18 120/79 96 Nasal Cannula 2.00 01/27/17 01:54 36.7 79 18 135/77 97 Nasal Cannula 2.00 01/27/17 01:52 36.7 83 16 136/74 99 Nasal Cannula 2.00 Intake and Output- Last 8 Hour 01/27/17 Cumulative From/Thru 07:00 01/23/17 10:12 - 01/27/17 05:43 Intake Total 850 ml 8293 ml Output Total 750 ml 6950 ml Balance 100 ml 1343 ml Intake Oral 850 ml 5610 ml IV Total 2683 ml Output Urine Total 750 ml 6950 ml # Voids 10 # Bowel Movements 5 General: Oriented X3 Neck: Supple Lungs: Clear to Auscultation Heart: Exam Unremarkable Abdomen: Benign, Soft, Non-tender, Non-distended, Normoactive bowel tones Extremities: Distal Pulses Palpable Result Diagram: 01/27/17 0650 01/27/17 0650 Assessment & Plan Impression This is a 71-year-old female with a history of COPD on home oxygen, osteoporosis, renal insufficiency, hypertension admitted here for facial droop, slurred speech due to a stroke, currently on Plavix. Differential diagnosis of dysphagia includes Schatzki ring versus uncontrolled GERD versus esophagitis versus eosinophilic esophagitis. I have explained the risks and benefits to the patient. The patient wishes to proceed with the upper endoscopy despite being on Plavix. barium swallow 01/25/2017- Function: There is mild esophageal dysmotility. Mild elicited gastroesophageal reflux. There is normal transit of a calibrated barium tablet through the esophagus into the stomach. Morphology: Air-contrast images demonstrate normal mucosal morphology. Single contrast views show no esophageal strictures or extrinsic mass effects. Small left lateral diverticulum involving the distal esophagus is present. Small hiatal hernia.. Limited images of the stomach demonstrate normal appearance. The attending physician was personally present in the room during the examination. IMPRESSION: 1. Mild esophageal dysmotility. 2. Small distal esophageal diverticula along the left lateral aspect of the esophagus. 3. Small reducible hiatal hernia and mild spontaneous gastroesophageal reflux. s/p egd 01/26/2017- IMPRESSIONS: 1. Small distal esophageal diverticulum at 38 cm from the incisors. 2. A 2 mm, clean-based nonbleeding ulcer at the antrum of the stomach. Recs: 1. Await pathology results. 2. Carafate 1 g by mouth four times a day. 3. Protonix 40mg bid 4. ok d/c home from gi standpoint will sign off . Problems: Resuscitation Status: CPR: Attempt Resuscitation Carlos Velasco MD Jan 27, 2017 08:24
[2017-01-27] MEDS ORDERED: SUCR1TAB30 PO (08:26)
[2017-01-27] MEDS ORDERED: Diltiazem CD 120 mg ER24 Capsule PO SCH (08:30)
[2017-01-27] MEDS ORDERED: BusPIRone 15 mg Dividose Tablet PO SCH (08:30)
[2017-01-27] MEDS: Fluticasone-Salmeterol 500-50 Inhaler INHALATION SCH (09:41)
[2017-01-27] MEDS: Lactobacillus Rhamnosus 10 Bil Unit Capsule PO SCH (09:44)
[2017-01-27] MEDS: Ascorbic Acid 500 mg Tablet PO SCH (09:55)
--- NOTE | 2017-01-27 18:10 | NUR ---
Discharge Patient discharge to home via POV accompanied by daughter. All belongings taken home, discharge notes and instructions given and well understood by patient and daughter. To come back at [facility] Out patient for infusion, instructed. Home with own personal O2. Denies any discomfort upon discharge.
--- NOTE | 2017-01-27 21:46 | PCM.DC.MED ---
Discharge Summary Date of Service Jan 27, 2017 Dates of Hospitalization Date of Hospital Admission Jan 23, 2017 at 13:32 Date of Discharge: Jan 27, 2017 Providers: Admitting Physician: Neris Guerrero DO Primary Care Physician: Zahira Kemp Attending Physician: Neris Guerrero DO Diagnosis at Time of Discharge Diagnosis at Time of Discharge TIA, Anemia of Chronic Disease, orthostatic hypotension due to inadequate hydration vs. autonomic dysfunction, COPD on 3L of oxygen, HTN, GERD, esophageal diverticulum Consultations GI, cardiology, physical therapy, occupational therapy, speech therapy, neurology Procedures XRay, CTs & MRIs [facility] [place] [address] Patient Name: DANNY DICKENS MR#: [id number] Location: [facility] Ordering Phys: Neris Guerrero DO Date of Service: 01/24/17 0800 PROCEDURE: MRI BRAIN WITHOUT CONTRAST ([id number]) INDICATIONS: WEAKNESS,SLURRED SPEECH, R/O CVA TECHNIQUE: Non-contrast axial T1 spin echo, axial T2 fast spin echo, sagittal and axial FLAIR, coronal T2 fast spin echo, axial gradient echo, axial diffusion and ADC through the brain. COMPARISON: [facility], CT, CT ANGIO BRAIN AND NECK, 01/24/2017, 13: 44. [facility], CT, CT BRAIN WO CON, 01/23/2017, 10:38. FINDINGS: Image quality: Limited by patient motion artifact. CSF spaces: Ventricles appear symmetric in size and shape. Basal cisterns are patent. No extra-axial fluid collections. Brain: No intracranial bleeds or mass effects. There is cerebral volume loss for age. There are periventricular and deep white matter chronic small vessel ischemic changes. Incidental note made of prominent perivascular spaces in the cerebral hemispheres. A Brainstem appears normal. Diffusion-weighted images show no acute ischemic insults. No chronic ischemic insults. Normal intravascular flow voids are present. Skull and face: Calvarial bone marrow is normal in signal. Orbits are normal. Sinuses: Sinuses and mastoids are clear. IMPRESSION: 1. No acute intracranial disease process. 2. Mild, diffuse on loss. 3. Mild periventricular and subcortical white matter chronic microvascular ischemic changes. 4. No areas of acute or chronic infarction. 5. Prominent cerebral hemisphere perivascular spaces. Prominent perivascular spaces in the left frontal and parietal lobes correspond to hypodensities identified by prior CT scans. Dictated by: Patti Thomas MD, PhD on 01/24/2017 at 15:05 Approved by: Patti Thomas MD, PhD on 01/24/2017 at 15:11 [facility] Diagnostic Imaging [place] [address] Patient Name: DANNY DICKENS MR#: [id number] Location: [facility] Ordering Phys: Neris Guerrero DO Date of Service: 01/24/17 0800 PROCEDURE: CT ANGIO HEAD AND NECK (P) INDICATIONS: R/O Cerebrial Vascular Disease Intracranial TECHNIQUE: Pre-contrast 4.5 mm thick sections acquired from the foramen magnum to the vertex. After the administration of intravenous contrast, 1 mm thick sections acquired from the aortic arch through the [place]. Post-contrast 4.5 mm thick sections then re-acquired from the foramen magnum to the vertex. 3- dimensional lrwdeoi-inpayazgf-wvjijuvtbe (MIP) and/or volume rendering reformats were acquired of the central intracranial vasculature and neck separately. For radiation dose reduction, the following was used: automated exposure control, adjustment of mA and/or kV according to patient size. COMPARISON: [facility], CT, CT BRAIN WO CON, 01/23/2017, 10:38. FINDINGS: Image quality: Excellent. BRAIN: CSF spaces: Ventricles are normal in size and shape. Basal cisterns are patent. No extra-axial fluid collections. Brain: No midline shift. No intracranial bleeds or masses. Small areas of loss of normal morton-white matter differentiation noted in the left parietal lobe and left frontal lobe suspicious for subacute infarcts. Skull and face: Calvarium and facial bones appear intact, without suspicious lesions. Orbits appear normal. Sinuses: Sinuses and mastoids are clear. HEAD CT ANGIOGRAPHY: Anterior circulation: Intracranial internal carotid arteries are normal in size and flow. Atherosclerotic calcifications noted in cavernous segment of the internal carotid arteries bilaterally which cause multifocal mild stenoses. The flow within the paired anterior cerebral arteries is normal and symmetric. The flow within the middle cerebral arteries is normal and symmetric. The anterior communicating artery is seen. No aneurysms are seen. Posterior circulation: Visualized portions of the vertebral arteries demonstrate normal caliber, and join to form a normal appearing basilar artery. Atherosclerotic calcification noted in the proximal V4 segment of the left vertebral artery which does not cause measurable stenosis. Flow within the posterior cerebral arteries is normal and symmetric. No aneurysms are seen. There is normal contrast enhancement of the dural sinuses. NECK CT ANGIOGRAPHY: Carotid system: The great vessels demonstrate a conventional anatomy as they arise from the aortic arch. The left which artery arises from the aortic arch proximal to the origin of the left subclavian artery. The origins of the common carotid arteries appear patent. The common carotid arteries demonstrate normal caliber and courses. The bifurcation regions are both widely patent. The internal carotid arteries demonstrate normal calibers and courses. Minimal atherosclerotic desiccation noted in the origin of the left internal carotid artery which does not cause measurable stenosis. Posterior circulation: The origins of the vertebral arteries both appear widely patent. The more superior extracranial portions of both vertebral arteries also demonstrate normal courses and calibers. They join to form a normal appearing basilar artery. Soft tissues: Visualized neck soft tissues demonstrate no suspicious abnormalities. 1.1 cm soft tissue density lesion noted in the left paramedian posterior upper back subcutaneous fat likely represents a small sebaceous cyst. Bones: Cervical spine degenerative disc disease and facet arthropathy are noted. No suspicious bony lesions. Visualized cervical spine appears normally aligned. IMPRESSION: 1. No hemodynamically significant stenosis. 2. No vascular occlusion. 3. No intracranial hemorrhage. 4. Small hypodensities involving the left frontal lobe and left parietal lobe suspicious for subacute infarcts. Dictated by: Patti Thomas MD, PhD on 01/24/2017 at 14:27 Approved by: Patti Thomas MD, PhD on 01/24/2017 at 14:44 [facility] [place] [address] Patient Name: DANNY DICKENS MR#: [id number] Location: [facility] Ordering Phys: Johny Green MD Date of Service: 01/23/17 1029 PROCEDURE: CT BRAIN WITHOUT CONTRAST ([id number]) INDICATIONS: Stroke. Slurred speech. TECHNIQUE: Noncontrast 4.5 mm thick angled axial sections acquired from the foramen magnum to the vertex, with coronal reformats. COMPARISON: None. FINDINGS: Image quality: There is mild motion artifact. CSF spaces: Basal cisterns are patent. No extra-axial fluid collections. Ventricles are normal in size and shape. Brain: No intracranial hemorrhage, mass, or mass effect. There is subtle effacement of the morton-white matter differentiation involving a small region of the left parietal lobe. Skull and face: Calvarium and visualized facial bones appear intact, without suspicious lesions. Sinuses: Visualized sinuses and mastoids are clear. IMPRESSION: 1. Subtle effacement of morton-white matter differentiation involving a small region of the left parietal lobe suggestive of an acute infarct. 2. No acute intracranial hemorrhage. Findings discussed with Dr. Green on 01/23/17 at 11:08 AM. Dictated by: Bobby Mejía M.D. on 01/23/2017 at 11:04 Approved by: Bobby Mejía M.D. on 01/23/2017 at 11:10 [facility] [place] [address] Patient Name: DANNY DICKENS MR#: [id number] Location: [facility] Ordering Phys: Magdalena Wan DO Date of Service: 01/25/17 1349 PROCEDURE: X-RAY BARIUM SWALLOW ESOPHAGUS ([id number]) INDICATIONS: globus, dysphagia COMPARISON: None. FINDINGS: Function: There is mild esophageal dysmotility. Mild elicited gastroesophageal reflux. There is normal transit of a calibrated barium tablet through the esophagus into the stomach. Morphology: Air-contrast images demonstrate normal mucosal morphology. Single contrast views show no esophageal strictures or extrinsic mass effects. Small left lateral diverticulum involving the distal esophagus is present. Small hiatal hernia.. Limited images of the stomach demonstrate normal appearance. The attending physician was personally present in the room during the examination. IMPRESSION: 1. Mild esophageal dysmotility. 2. Small distal esophageal diverticula along the left lateral aspect of the esophagus. 3. Small reducible hiatal hernia and mild spontaneous gastroesophageal reflux. Dictated by: Rico Gonsales RRA Interpreted: Cyril Curry MD on 01/25/2017 at 15:41 Transcribed by: SHALONDA on 01/25/2017 at 15:43 Approved by: Cyril Curry M.D. on 01/25/2017 at 16:42 Cardiac Echo Impression [facility] [place] [address] Patient Name: DANNY DICKENS MR#: [id number] Location: [facility] Ordering Phys: Sugar Villalpando MD Date of Service: 01/23/17 1203 [facility] [address] [place] [address] Echocardiogram Report Name: DANNY DICKENS ASttrevor Date : 01/23/2017 Heigh t: 72 in Hospital Exam Location: [facility] Weigh t: 200 lb Gender: Female BSA: 2.1 m2 : 1945 Age: 71 yrs BP: 1 39/74 mmHg Reason For Study: STROKE Ordering Physician: Sugar Villalpando Performed By: Radha Pete Referring Physician: DR. ESTRADA, DR. RICE Interpretation Summary The left ventricle is normal in size, wall thickness, and systolic function without any focal wall motion abnormalities. The ejection fraction is estimated to be 60-65%. The right ventricle is normal in size and function. The right ventricular systolic pressure is estimated at 30 mmHg assuming a right atrial pressure of 3 mm Hg. The left atrium is mildly dilated. Right atrial size is normal. There is no significant valvular heart disease. The aortic root is normal size. No obvious source for cardioembolic stroke. Procedure: A two-dimensional transthoracic echocardiogram with color flow and Doppler was performed. The study quality was technically adequate. There is no prior echocardiogram noted for this patient. The patient was in normal sinus rhythm during the exam. Left Ventricle: The left ventricle is normal in size, wall thickness, and systolic function without any focal wall motion abnormalities. The ejection fraction is estimated to be 60-65%. Assessment of diastolic parameters indicates normal left ventricular diastolic function and normal filling pressures. Right Ventricle: The right ventricle is normal in size and function. Atria: The left atrium is mildly dilated. Right atrial size is normal. There is no Doppler evidence for an atrial septal defect. Mitral Valve: The mitral valve leaflets appear normal. There is no evidence of stenosis, fluttering, or prolapse. There is trace mitral regurgitation. Aortic Valve: The aortic valve is trileaflet. The aortic valve opens well. No aortic regurgitation is present. Tricuspid Valve: The tricuspid valve leaflets are thin and pliable. There is mild tricuspid regurgitation. The right ventricular systolic pressure is estimated at 30 mmHg assuming a right atrial pressure of 3 mm Hg. Pulmonic Valve: The pulmonic valve leaflets are thin and pliable; valve motion is normal. There is a trace or physiologic amount of pulmonic regurgitation. There is no significant valvular heart disease. Great Vessels: The aortic root is normal size. The dimensions of the ascending aorta are normal. The pulmonary artery is normal size. The IVC is of normal diameter and collapses greater than 50% with a sniff. This suggests a low right atrial pressure of 3 mm Hg. Pericardium/ Pleura There is no pericardial effusion. There is no pleural effusion. MMode/2D Measurements & Calculations LVIDd: 4.9 cm LA dimension: 3.8 cm RA long axis LVOT diam: 2.1 cm LVIDs: 3.4 cm AoV Opening FS: 31.4 % LA A2 area: 23.1 cm RA area EPSS: 0.59 cm LA A4 area: 24.2 cm Ao root diam IVSd: 1.0 cm LA length (vol) : 17.0 cm LVPWd: 1.0 cm RA vol Aortic Jxn: 3.1 cm LA vol: 79.9 ml : 50.7 ml asc Aorta Diam LA vol index RA : 24.3 mm/ Ao Arch Diam (Prox RVDd major Trans): 2.9 cm IVC diam: 1.7 cm : 5.7 cm LV matthews. diameter/BSA LV sys. diameter/BSA RVD2 (mid) (cm/m^2): 2.3 (cm/m^2): 1.6 : 3.3 cm Doppler Measurements & Calculations Ao V2 max MV E max ezra MV E/A: 0.98 TR max ezra : 203.5 cm/sec : 73.0 cm/sec Med Peak E' Ezra : 261.9 cm/sec Ao max P.6 mmHg MV A max ezra TR max PG Ao mean P.6 mmHg : 74.3 cm/sec E/E' med: 7.3 : 27.4 mmHg LVOT Max Ezra MV P1/2t Lat Peak E' Ezra PA V2 max : 163.1 cm/sec : 44.4 msec : 118.6 cm/sec NEERU(I,D): 2.8 cm E/E' lat: 6.2 PA mean PG sev ratio: 0.80 E/e' average: 6.7 Pulm A Revs Dur PA Accel Time : 0.11 sec MV P1/2t max ezra Ao V2 mean LV V1 max PG PA V2 mean : 128.4 cm/sec : 80.3 cm/sec MVA(P1/2t): 5.0 cm2 Ao V2 VTI: 32.5 cmLV V1 VTI: 26.0 cm NEERU(V,D): 2.8 cm2 NEERU indexed to BSA (cm^2/m^2): 1.3 Reading Physician:04:14 PM ADDENDUM Version 2 [facility] [address] [place] [address] Echocardiogram Report Name: DANNY DICKENS Date : 01/23/2017 Heigh t: 72 in Hospital Exam Location: [facility] Weigh t: 200 lb Gender: Female BSA: 2.1 m2 : 1945 Age: 71 yrs BP: 1 39/74 mmHg Reason For Study: STROKE Ordering Physician: Sugar Villalpando Performed By: Radha Pete Referring Physician: DR. ESTRADA, DR. RICE Interpretation Summary The left ventricle is normal in size, wall thickness, and systolic function without any focal wall motion abnormalities. The ejection fraction is estimated to be 60-65%. The right ventricle is normal in size and function. The right ventricular systolic pressure is estimated at 30 mmHg assuming a right atrial pressure of 3 mm Hg. The left atrium is mildly dilated. Right atrial size is normal. There is no significant valvular heart disease. The aortic root is normal size. No obvious source for cardioembolic stroke. Interpreted by Dr. Rivas. Procedure: A two-dimensional transthoracic echocardiogram with color flow and Doppler was performed. The study quality was technically adequate. There is no prior echocardiogram noted for this patient. The patient was in normal sinus rhythm during the exam. Left Ventricle: The left ventricle is normal in size, wall thickness, and systolic function without any focal wall motion abnormalities. The ejection fraction is estimated to be 60-65%. Assessment of diastolic parameters indicates normal left ventricular diastolic function and normal filling pressures. Right Ventricle: The right ventricle is normal in size and function. Atria: The left atrium is mildly dilated. Right atrial size is normal. There is no Doppler evidence for an atrial septal defect. Mitral Valve: The mitral valve leaflets appear normal. There is no evidence of stenosis, fluttering, or prolapse. There is trace mitral regurgitation. Aortic Valve: The aortic valve is trileaflet. The aortic valve opens well. No aortic regurgitation is present. Tricuspid Valve: The tricuspid valve leaflets are thin and pliable. There is mild tricuspid regurgitation. The right ventricular systolic pressure is estimated at 30 mmHg assuming a right atrial pressure of 3 mm Hg. Pulmonic Valve: The pulmonic valve leaflets are thin and pliable; valve motion is normal. There is a trace or physiologic amount of pulmonic regurgitation. There is no significant valvular heart disease. Great Vessels: The aortic root is normal size. The dimensions of the ascending aorta are normal. The pulmonary artery is normal size. The IVC is of normal diameter and collapses greater than 50% with a sniff. This suggests a low right atrial pressure of 3 mm Hg. Pericardium/ Pleura There is no pericardial effusion. There is no pleural effusion. MMode/2D Measurements & Calculations LVIDd: 4.9 cm LA dimension: 3.8 cm RA long axis LVOT diam: 2.1 cm LVIDs: 3.4 cm AoV Opening FS: 31.4 % LA A2 area: 23.1 cm RA area EPSS: 0.59 cm LA A4 area: 24.2 cm Ao root diam IVSd: 1.0 cm LA length (vol) : 17.0 cm LVPWd: 1.0 cm RA vol Aortic Jxn: 3.1 cm LA vol: 79.9 ml : 50.7 ml asc Aorta Diam LA vol index RA : 24.3 mm/ Ao Arch Diam (Prox RVDd major Trans): 2.9 cm IVC diam: 1.7 cm : 5.7 cm LV matthews. diameter/BSA LV sys. diameter/BSA RVD2 (mid) (cm/m^2): 2.3 (cm/m^2): 1.6 : 3.3 cm Doppler Measurements & Calculations Ao V2 max MV E max ezra MV E/A: 0.98 TR max ezra : 203.5 cm/sec : 73.0 cm/sec Med Peak E' Ezra : 261.9 cm/sec Ao max P.6 mmHg MV A max ezra TR max PG Ao mean P.6 mmHg : 74.3 cm/sec E/E' med: 7.3 : 27.4 mmHg LVOT Max Ezra MV P1/2t Lat Peak E' Ezra PA V2 max : 163.1 cm/sec : 44.4 msec : 118.6 cm/sec NEERU(I,D): 2.8 cm E/E' lat: 6.2 PA mean PG sev ratio: 0.80 E/e' average: 6.7 Pulm A Revs Dur PA Accel Time : 0.11 sec MV P1/2t max ezra Ao V2 mean LV V1 max PG PA V2 mean : 128.4 cm/sec : 80.3 cm/sec MVA(P1/2t): 5.0 cm2 Ao V2 VTI: 32.5 cmLV V1 VTI: 26.0 cm NEERU(V,D): 2.8 cm2 NEERU indexed to BSA (cm^2/m^2): 1.3 Reading Physician:PM Report status: Addendum REPORT#: [id number] Invasive Procedures EGD was done on 01/26/[address] Tho Beavers Course 71-year-old female who presents with suspicion for CVA CVA/TIA, POA -MRI of the brain showed no acute stroke on 01/24/17: Thought to be a TIA in stead -CT angiogram -Echo: Showed no acute cardiac processes normal EF of 60-65% -Lipid panel within normal limits -Hemoglobin A1c 5.3 within normal limits -Plavix 75 mg daily -Disontinue aspirin 81 mg daily: Discussed with Dr. Gutierrez, he agrees - was consulted I personally spoke with him and he stated that he would see the patient: Dr. Gutierrez feels the flashes and lights are due to orthostatic hypotension, says to optimize her BP control, he says to control her globus/gerd sensation better. -OT states that the patient is cleared from their standpoint however he feels the patient may need a walker for stability -PT to evaluate and give recommendations -Speech and swallow eval recommend soft diet: Barium swallow is ordered on and showed mild esophageal dysmotility and a small esophageal diverticulum. Anemia of chronic disease, POA -- Was given 200 mg venofer infusion 01/25/70. The second one was done today -- Will stop iron supplementation for now. -- Follow-up 3 infusions in next 10 days -- Follow-up iron panel and ferritin were ordered for discharge COPD -Currently stable -Continue oxygen 3 L continuously -Albuterol when necessary GERD (stable) -Continue home medication -- GI is consulted, they will do an EGD 01/26 AM, they will not do any interventions due to her plavix. We appreciate their consult/recs: Dr. Nettles has performed EGD, A 2 mm, round clean-based nonbleeding ulcer at the antrum of the stomach. They recommend Carafate 4 times a day, pantoprazole 40 twice a day -- Discussed but the patient is going with Plavix, pharmacy says to use pantoprazole -- Patient is given scripts for pantoprazole as well as Carafate. Follow-up appointment with Dr. Nettles in 2 weeks. They may consider esophageal manometry study Hypertension (controlled) -Continue lisinopril 10 mg daily: Hold due to concern for hypotension -Continue diltiazem 240 mg daily Orhtostatic Hypotension: Likely due to autonomic dysfunction versus dehydration versus anemia versus functional debility -- Improved with IV hydration during this stay -- Patient is asked to hydrate well to avoid orthostatic hypotension. We adjusted her BP meds -- Addressed her anemia Tremor, POA: -- Discussed the possibility of cerebellar versus essential tremor versus orthostatics tremors versus Parkinson's versus anxiety versus anemia -- Propranolol has worked for her during this stay and prescription was given for 20 mg 3 times a day -- She can follow up with Dr. gutierrez as outpatient at which time he can determine the final diagnosis CKD stage III (baseline Cr. 3 as reported by patient-unsure if this is accurate) -Creatinine currently around 1 -We will hydrate patient prior to and post contrast studies -Continue to monitor Elevated troponins -Most likely secondary to CVA/TIA -Trend troponins currently stable -Echo: Showed no acute cardiac processes normal EF of 60-65% -Cardiology was consulted from the ER, he appreciated the recommendations Anxiety disorder, present on admission: -- Patient is started on BuSpar during this admission she is agreeable to this plan -- Anxiety may be contributing to her tremor DVT prophylaxis: SCDs, and ambulation Disposition: The patient seems to be progressing well and returning back to her normal baseline status. We will continue to follow up with physical therapy for their recommendations. We will also await further recommendations from Dr. gutierrez and Dr. 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 No ptosis, Neck: No masses, trachea midline, no thyromegaly Lungs: CTA with normal respiratory effort, no crackles or wheezes CV: RRR, no murmurs/rubs/gallops, normal PMI GI: Soft, non-tender with no hepatosplenomegaly MSK: no digital cyanosis Skin: Warm and dry. Psych: A&O X3, with appropriate affect Test 01/23/17 10:25 01/23/17 13:00 01/24/17 07:04 01/25/17 06:17 Neutrophils (%) (Auto) 68.6% (40-74) Lymphocytes (%) (Auto) 15.5% (14-46) Monocytes (%) (Auto) 11.8% (4-12) Eosinophils (%) (Auto) 3.6% (0-5) Basophils (%) (Auto) 0.2% (0-3) Prothrombin Time 9.3sec (8.1-12.5) Prothromb Time International Ratio 0.87ratio Hemoglobin A1c 5.3% (4.8-5.6) Magnesium Level 2.5mg/dL (1.6-2.6) Urine Color Straw (YELLOW) Urine Appearance Hazy (CLEAR,HAZY) Urine pH 5.5 (5.0-8.0) Urine Specific [place] 1.020 (1.003-1.035) Urine Protein 30mg/dL (NEG,TRACE) Urine Glucose (UA) Negativemg/dL (NEGATIVE) Urine Ketones Negativemg/dL (NEGATIVE) Urine Occult Blood Negative (NEGATIVE) Urine Nitrite Positive (NEGATIVE) Urine Bilirubin Negative (NEGATIVE) Urine Urobilinogen Normalmg/dL (NORMAL) Urine Leukocyte Esterase Negative (NEGATIVE) Urine RBC 0-2/hpf (0-2) Urine WBC 0-5/hpf (0-5) Urine Epithelial Cells Occasional/hpf (NONE-MOD) Urine Crystals None seen (NONE SEEN) Urine Bacteria Many/hpf (NONE-FEW) Urine Hyaline Casts None/lpf (NONE) Urine Granular Casts None seen (NONE SEEN) Urine Waxy Casts None seen (NONE SEEN) Urine Red Blood Cell Casts None seen (NONE SEEN) Urine White Blood Cell Casts None seen (NONE SEEN) Urine Mucus None seen (None Seen) Urine Trichomonas None seen (NONE SEEN) Urine Yeast None (NONE SEEN) Urinalysis Comment None Urine Culture Reflexed Indicated Triglycerides Level 72mg/dL (0-149) Cholesterol Level 165mg/dL (100-199) LDL Cholesterol, Calculated 72.600mg/dL (0-99) VLDL Cholesterol 14.400mg/dL HDL Cholesterol 78mg/dL (>39) Cholesterol/HDL Ratio 2.12 (0.0-4.4) Reticulocyte Count,Calculated 1.1% (0.6-2.6) Iron Level 28ug/dL (35-150) Total Iron Binding Capacity 213ug/dL (250-450) Percent Iron Saturation 13%sat (15-50) Unsaturated Iron Binding 185.1ug/dL Ferritin 249ng/mL (13-150) Total Bilirubin < 0.2mg/dL (0.0-1.2) Aspartate Amino Transf (AST/SGOT) 10U/L (0-50) Alanine Aminotransferase (ALT/SGPT) 6U/L (0-32) Alkaline Phosphatase 46U/L (25-165) Troponin T < 0.010ug/L (0.0-0.011) Total Protein 5.0g/dL (6.4-8.4) Albumin 3.0g/dL (3.4-5.0) Vitamin B12 Level 227pg/mL (211-946) Folate 15.4ng/mL (>3.0) Test 01/27/17 06:50 White Blood Count 7.0th/mm3 (3.8-10.1) Red Blood Count 3.37mil/mm3 (3.90-5.20) Hemoglobin 9.9g/dL (12.0-15.6) Hematocrit 36.7% (35.0-46.0) Mean Corpuscular Volume 108.9fL (81-100) Mean Corpuscular Hemoglobin 29.4pg (27.0-35.0) Mean Corpuscular Hemoglobin Concent 27.0% (32.0-37.0) Red Cell Distribution Width 13.0% (12.3-15.4) Platelet Count 121bil/L (150-400) Sodium Level 145mEq/L (134-144) Potassium Level 5.1mEq/L (3.5-5.2) Chloride Level 97mEq/L (97-108) Carbon Dioxide Level 42mmol/L (18-29) Blood Urea Nitrogen 17mg/dL (8-27) Creatinine 1.00mg/dL (0.57-1.00) Estimat Glomerular Filtration Rate 79mL/min (>59) Glucose Level 124mg/dL (60-99) Calcium Level 9.3mg/dL (8.5-10.1) Discharge Medications Discharge Medications Ascorbic Acid (Vitamin C) 1,000 Mg Tab.chew 1,000 MG PO DAILY (Reported) Atorvastatin Calcium (Atorvastatin Calcium) 10 Mg Tablet 10 MG PO HS Prescribed by: MAGDALENA WAN DO Buspirone (Buspirone) 15 Mg Tablet 7.5 MG PO BID Prescribed by: MAGDALENA WAN DO Clopidogrel (Clopidogrel) 75 Mg Tablet 75 MG PO DAILY Prescribed by: MAGDALENA WAN DO Diltiazem ER (Cardizem CD) 120 Mg Cap.er.24h 240 MG PO DAILY Prescribed by: MAGDALENA WAN DO Fluticasone/Salmeterol (Advair Hfa 115-21 Mcg Inhaler) 12 Gm Hfa.aer.ad 2 PUFF IH BID (Reported) Iron Sucrose Complex (Venofer) 200 Mg/10 Ml Vial 200 MG IV Q72H Prescribed by: MAGDALENA WAN DO Lactobacillus Combination No.4 (Probiotic) 1 Each Capsule 1 EACH PO DAILY ( Reported) Lisinopril (Lisinopril) 10 Mg Tablet 10 MG PO DAILY (Reported) Pantoprazole DR (Pantoprazole DR) 40 Mg Tablet.dr 40 MG PO BIDAC Prescribed by: MAGDALENA WAN DO Propranolol HCl (Propranolol HCl) 20 Mg Tablet 20 MG PO TID Prescribed by: MAGDALENA WAN DO Sucralfate (Carafate) 1 Gm Tablet 1 GM PO QID Prescribed by: MAGDALENA WAN DO Vit D3/Folic Acid/B2/B6/B12 (Folgard Tablet) 1 Each Tablet 1 EACH PO DAILY ( Reported) As needed Albuterol HFA (Proair HFA) 8.5 Gm Hfa.aer.ad 2 PUFFS INHALATION Q4H PRN PRN For Shortness of Breath (Reported) Albuterol Neb Soln (Albuterol Neb Soln) 2.5 Mg/3 Ml Vial.neb 2.5 MG INHALATION QID PRN PRN For Shortness of Breath (Reported) Followup Plan Follow-up plan F/U with PCP in one week F/U with Dr. Gutierrez in 2 weeks F/U with Dr. Velasco in 2 weeks F/U for iron infusions 3 times in the next ten days F/U Iron, TIBC, Ferritin , H&H in 2 weeks (upon completion of infusions) Discharge Activity: Limited until seen by PCP, Home Health Phyical Therapy Patient Instructions Please go for 3 more venofer infusions in the next 10 ten days Please start your new anxiety medication, tremor medication. Stop Aspirin, take plavix as prescribed. Stay well hydrated to avoid drop in blood pressure with positional changes. Use front wheeled walker for ambulation Magdalena Wan DO Jan 27, 2017 08:28
[2017-01-28] MEDS ORDERED: FLUT1DIS5 IH (23:44)
--- NOTE | 2017-01-29 15:20 | PATH ---
SURGICAL PATHOLOGY Attending Physician:Carlos Velasco MD CASE STATUS: Signed Out PATIENT NAME: DANNY DICKENS PID: [id number] : 1945 DATE COLLECTED:01/26/2017 00:00 SPECIMEN: 1: Esophagus, Biopsy 2: Esophagus, Biopsy 3: Stomach, Antrum, Biopsy 4: Gastric, Biopsy CLINICAL HISTORY: DYSPHAGIA 1). MID ESOPHAGUS BIOPSY 2). DISTAL ESOPHAGUS BIOPSY 3). ANTRUM BIOPSY 4). GASTRIC BODY BIOPSY FINAL DIAGNOSIS: 1.MID ESOPHAGUS BIOPSY: FRAGMENTS OF SQUAMOUS EPITHELIUM, NEGATIVE FOR ATYPIA. Eosinophils are not increased. 2.DISTAL ESOPHAGUS BIOPSY: SQUAMOUS EPITHELIUM AND SMALL AMOUNT OF GASTRIC CARDIA-TYPE MUCOSA NEGATIVE FOR SPECIALIZED METAPLASIA OF WITT' S-TYPE ESOPHAGUS. Negative for dysplasia and malignancy. Eosinophils are not increased. 3.GASTRIC ANTRUM BIOPSY: MILD TO MODERATE CHRONIC GASTRITIS INVOLVING ANTRAL MUCOSA. Negative for evidence of Helicobacter. Negative for intestinal metaplasia. Negative for dysplasia and malignancy. 4.GASTRIC BODY BIOPSY: DIFFUSE MODERATE CHRONIC GASTRITIS INVOLVING FUNDIC MUCOSA. Negative for evidence of Helicobacter. Positive for intestinal metaplasia. Negative for dysplasia and malignancy. ICD10 code K29.70 GROSS DESCRIPTION: Received are four formalin-filled containers, each labeled with the patient' s name. 1. Received in formalin, labeled with the patient' s name and "mid esophagus BX", are two fragments of orellana, soft tissue ranging in size from 0.1 x 0.1 x 0.1 cm to 0.2 x 0.1 x 0.1 cm. All fragments are totally submitted in cassette 1A. 2. Received in formalin, labeled with the patient' s name and "distal esophagus BX", is one fragment of orellana, soft tissue measuring 0.2 x 0.1 x 0.1 cm. The fragment is totally submitted in cassette 2A. 3. Received in formalin, labeled with the patient' s name and "antrum BXs", are two fragments of orellana, soft tissue ranging in size from 0.1 x 0.1 x 0.1 cm to 0.2 x 0.1 x 0.1 cm. All fragments are totally submitted in cassette 3A. 4. Received in formalin, labeled with the patient' s name and "gastric body BXs", are two fragments of orellana, soft tissue ranging in size from 0.1 x 0.1 x 0.1 cm to 0.2 x 0.1 x 0.1 cm. All fragments are totally submitted in cassette 4A. ([id number]) MICRO DESCRIPTION: See diagnosis. ICD-9 CODES: CPT CODES: 1: 63523 2: 10149 3: 73943 4: 16809 Electronically Signed Out Jere Gonzalez MD [facility] Pathology [facility] [address], [place] [address] Technical component performed at [facility], [address], [place], [address]
== END 2017-01-27 18:10 | disposition home or self-care (01) | DRG 92 ==
LOC: SED 10:08 → MOC 13:32
PROVIDERS: ADMIT Neuromusculoskeletal Medicine & OMM; ATTEND Neuromusculoskeletal Medicine & OMM
PROC: 0DB68ZX Excision of Stomach, Via Natural or Artificial Opening Endoscopic, Diagnostic (ICD-10-PCS; principal; 2017-01-26 15:00)
DX: R47.81 Slurred speech (principal); G45.9 Transient cerebral ischemic attack, unspecified; Q39.6 Congenital diverticulum of esophagus; R29.700 NIHSS score 0; R29.810 Facial weakness; Z79.82 Long term (current) use of aspirin; J44.9 Chronic obstructive pulmonary disease, unspecified; K21.9 Gastro-esophageal reflux disease without esophagitis; I12.9 Hypertensive chronic kidney disease with stage 1 through stage 4 chronic kidney disease, or unspecified chronic kidney disease; N18.3 Chronic kidney disease, stage 3 (moderate); R74.8 Abnormal levels of other serum enzymes; Z51.5 Encounter for palliative care; R13.10 Dysphagia, unspecified; D64.9 Anemia, unspecified; R25.1 Tremor, unspecified; I95.1 Orthostatic hypotension; R40.2142 Coma scale, eyes open, spontaneous, at arrival to emergency department; R40.2252 Coma scale, best verbal response, oriented, at arrival to emergency department; R40.2362 Coma scale, best motor response, obeys commands, at arrival to emergency department; R40.2412 Glasgow coma scale score 13-15, at arrival to emergency department

== ENCOUNTER 2017-01-28 14:47 | Inpatient (IN) | payer MEDICARE, OTHER ==
[2017-01-28] VITALS (7 sets, daily range): BP systolic 117–130; BP diastolic 58–70; PULSE 61–74; RESP 16–19; O2SAT 92–97
[~2017-01-28] VITALS: Ht 170.2 cm; Wt 78.7 kg
[~2017-01-28 14:47] MED LIST: ALBU2.5V4 INHALATION; ALBU8.5H2 INHALATION; ASCO100089 PO; ATOR10TA66 PO; BUSP15TA3 PO; CLOP75TA28 PO; DILT120C83 PO; FLUT12AE4 IH; IRON100V IV; LACT1CAP67 PO; LISI10TA PO; PANT40TA3 PO; PROP20TA5 PO; SUCR1TAB30 PO; VIT1TABL95 PO
--- NOTE | 2017-01-28 14:51 | ED.REPORT ---
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 Per daughter, patient was tired and disoriented last night but cleared around 0230 this morning. At 1330, pt became unresponsive and required 2, rough sternal rubs from her daughter to awake her. Upon waking, pt had glazed over eyes, was tachycardiac, had L upper extremity weakness, slurred speech, and was confused. Upon arrival in the department she is close to baseline status. Patient denies chest pain, headache, pain, SOB, or any other symptoms. She was diagnosed and admitted for a TIA 6 days ago. She was discharged yesterday. Nursing Notes Stated Complaint: SLURRED SPEECH, DIZZY, HX OF TIA Nursing Notes Reviewed: Yes Allergies: Coded Allergies: Penicillins (Verified Allergy, Severe, Anaphylaxis, 01/28/17) budesonide (Verified Allergy, Severe, Restlessness, 01/28/17) formoterol (Verified Allergy, Severe, Restlessness, 01/28/17) levofloxacin (Verified Allergy, Severe, Hallucinations, 01/28/17) Scheduled Ascorbic Acid (Vitamin C) 1,000 Mg Tab.chew 1,000 MG PO DAILY (Reported) Atorvastatin Calcium (Atorvastatin Calcium) 10 Mg Tablet 10 MG PO HS Buspirone (Buspirone) 15 Mg Tablet 7.5 MG PO BID Clopidogrel (Clopidogrel) 75 Mg Tablet 75 MG PO DAILY Diltiazem ER (Cardizem CD) 120 Mg Cap.er.24h 240 MG PO DAILY Fluticasone/Salmeterol (Advair Hfa 115-21 Mcg Inhaler) 12 Gm Hfa.aer.ad 2 PUFF IH BID (Reported) Iron Sucrose Complex (Venofer) 200 Mg/10 Ml Vial 200 MG IV Q72H Lactobacillus Combination No.4 (Probiotic) 1 Each Capsule 1 EACH PO DAILY ( Reported) Lisinopril (Lisinopril) 10 Mg Tablet 10 MG PO DAILY (Reported) Pantoprazole DR (Pantoprazole DR) 40 Mg Tablet.dr 40 MG PO BIDAC Propranolol HCl (Propranolol HCl) 20 Mg Tablet 20 MG PO TID Sucralfate (Carafate) 1 Gm Tablet 1 GM PO QID Vit D3/Folic Acid/B2/B6/B12 (Folgard Tablet) 1 Each Tablet 1 EACH PO DAILY ( Reported) Scheduled PRN Albuterol HFA (Proair HFA) 8.5 Gm Hfa.aer.ad 2 PUFFS INHALATION Q4H PRN PRN For Shortness of Breath (Reported) Albuterol Neb Soln (Albuterol Neb Soln) 2.5 Mg/3 Ml Vial.neb 2.5 MG INHALATION QID PRN PRN For Shortness of Breath (Reported) General Time Seen by Provider: 14:49 Chief Complaint Slurred speech Hx Obtained From: Patient, Daughter Arrived By: Walk-in Time last known well 1330 Sudden in Onset?: Yes Progression Since Onset: Gradually improving Recent Healthcare: Recent hospitalization Similar Sx Previous: Yes Risk Factors )( TPA Administration/Criteria Stroke Thrombolytic Therapy : TPA Considered: No (NIH 2 ) Neurologist Contacted: Yes TPA Administered Intravenously: No, exclusion criteria Exclusion Criteria: Prior stroke / 90 days NIH Stroke Scale Level of Consciousness: Alert and responsive (0) Ask Month & Age: Both questions right (0) Open/Close Eyes/Hand Track And Field Coach: Performs both tasks (0) Horizontal EO Movements: None (0) Visual [place]: No visual loss (0) Facial Palsy: Normal symmetry (0) Right Arm Motor Drift (10s): No drift 10 sec (0) Left Arm Motor Drift (10s): No drift 10 sec (0) Right Leg Motor Drift (5s): Drift, not touch bed (1) Left Leg Motor Drift (5s): Drift, not touch bed (1) Limb Ataxia FNF/Heel-Carpenter: No ataxia (0) Sensation (Arms/Legs/Face): No sensory loss (0) Language Aphasia: No aphasia, normal (0) Dysarthria: No dysarthria, normal (0) Extinction/Inattention: No exctinct/inattent (0) NIHSS Score: 2 Time NIHSS Performed: 14:59 Date NIHSS Performed: Jan 28, 2017 )( CVA Risk Stratification Age >60 Hypertension Prior CVA/TIA Risk factors reviewed Past Medical History Past Medical History Notes: CODE STATUS: FULL CODE Neurologist: Amari Reyna Past Medical History Reports: Asthma, COPD, GERD, Hypertension, Transient ischemic attack Past Surgical History Gastric surgery Reports: Tubal ligation Smoking History Unknown if Ever Smoker Social History Other Social History: Good social support Review of Systems Respiratory: Denies: Shortness of breath Cardiovascular: Denies: Chest pain Neurologic: Reports: Change LOC, Slurred speech, Weakness, Denies: Headache Psychiatric: Reports: Change mental status, Confusion Complete sys rev & neg: except as marked. Physical Exam Initial Vital Signs Vital Signs (First) Date Time Temp Pulse Resp B/P Pulse Ox O2 Delivery O2 Flow Rate FiO2 01/28/17 14:56 36.2 61 19 117/58 97 Room Air Initial VS: Reviewed Abdomen / GI: Soft, Non-tender Skin: Warm, Dry Psychiatric: Mood/affect normal, Behavior normal, Normal thought content General/Constitutional: Awake, Alert, Well developed Head / Eyes: Atraumatic, Normocephalic, PERRL Neck: Supple Respiratory / Chest: Breath sounds NL, Breath sounds = bilat, No respiratory distress Cardiovascular: Heart rate NL, Regular rhythm Neurologic: Oriented X3, Speech NL See NIH scale Interpretation & Diagnostics Lab Results Interpretation Result Diagram: 01/28/17 1507 01/28/17 1507 Test 01/28/17 15:07 White Blood Count 8.8th/mm3 (3.8-10.1) Red Blood Count 3.48mil/mm3 (3.90-5.20) Hemoglobin 10.2g/dL (12.0-15.6) Hematocrit 38.2% (35.0-46.0) Mean Corpuscular Volume 109.8fL (81-100) Mean Corpuscular Hemoglobin 29.3pg (27.0-35.0) Mean Corpuscular Hemoglobin Concent 26.7% (32.0-37.0) Red Cell Distribution Width 12.7% (12.3-15.4) Platelet Count 135bil/L (150-400) Neutrophils (%) (Auto) 73.3% (40-74) Lymphocytes (%) (Auto) 11.4% (14-46) Monocytes (%) (Auto) 12.0% (4-12) Eosinophils (%) (Auto) 2.6% (0-5) Basophils (%) (Auto) 0.5% (0-3) Prothrombin Time 8.9sec (8.1-12.5) Prothromb Time International Ratio 0.83ratio Activated Partial Thromboplast Time 29.4sec (22.8-33.0) Sodium Level 137mEq/L (134-144) Potassium Level 5.7mEq/L (3.5-5.2) Chloride Level 92mEq/L (97-108) Carbon Dioxide Level 40mmol/L (18-29) Blood Urea Nitrogen 22mg/dL (8-27) Creatinine 1.26mg/dL (0.57-1.00) Estimat Glomerular Filtration Rate 60mL/min (>59) Glucose Level 113mg/dL (60-99) Calcium Level 9.4mg/dL (8.5-10.1) Total Bilirubin 0.2mg/dL (0.0-1.2) Aspartate Amino Transf (AST/SGOT) 13U/L (0-50) Alanine Aminotransferase (ALT/SGPT) 9U/L (0-32) Alkaline Phosphatase 58U/L (25-165) Troponin T < 0.010ug/L (0.0-0.011) Total Protein 5.8g/dL (6.4-8.4) Albumin 3.5g/dL (3.4-5.0) Hold Trevino Top Tube Received (Received) ECG Interpretation ECG Interpretation: Sinus rate [address] elevations in 2,3, AVF Unchanged from prior Time: 15:20 Interpreted by: ED physician CT Head Interpretation CT BRAIN: IMPRESSION: 1. No acute intracranial disease process. 2. Findings telephoned to Dr. Johny Green on 01/28/2017 at 1503 hrs. This study fulfills neurological imaging criteria for inclusion or exclusion of acute stroke therapies based on available published neurological guidelines. Dictated by: Patti Thomas MD, PhD on 01/28/2017 at 15:01 Approved by: Patti Thomas MD, PhD on 01/28/2017 at 15:05 Study: Head CT no contrast Interpretation / Wet Read by: Interpret - Radiologist Re-Eval/Medical Decision Med Decision/Clinical Course 71-year-old female recent admission for TIA, COPD, hypertension and recently discharged after a negative stroke workup on Plavix brought in by daughter for episode today of dysarthria, right upper extremity weakness and five minutes of confusion and unresponsiveness where daughter applied sternal rub. Denied any seizure activity though she does report possible seizure activity several days ago prior to previous admission. On arrival patient was back to her baseline mental status and dysarthria. Her stroke scale was to given questionable bilateral lower extremity drift. Code stroke called immediately with emergent CT no hemorrhage. I consulted stroke neurology, Dr Fuentes, emergently who recommended no TPA given low stroke scale and improvement in symptoms. Workup was negative here. Potassium is elevated 5.7. No EKG changes. Negative troponins. Discussed with our neurologist, Dr Sexton, who recommended admission for EEG and telemetry monitoring. Cannot rule out TIA versus seizure versus cardiac versus other. Re-Evaluation/Progress : Time of Eval: 16:04 )( Re-Eval Neurologic Exam: Alert Re-Evaluation/Progress Note: Per daughter, pt is having visual hallicinations and describing a TV program that she is watching. There is no TV in the room. Discussed plan for admission. Patient understands and agrees with plan. All questions addressed at this time. Consultation #1: Consulted With: Neurology Call Returned at: 15:16 Advertising Copywriter: Agrees with eval, Agrees with plan Note: Discussed pt. case with Dr. Fuentes with [facility]rology . Not a TPA canidate Consultation #2: Referral / Consult Name: Anushka Bliss MD Consulted With: Neurology Call Returned at: 15:53 Advertising Copywriter: Agrees with eval, Agrees with plan Note: Discussed pt. case. Start Aspirin, stop Plavix. Consultation #3: Referral / Consult Name: Sahil Young MD Consulted With: Hospitalist Call Returned at: 16:39 Advertising Copywriter: Will see patient, Agrees with eval, Agrees with plan, Accepts admit Note: Discussed pt. case. Accepts admit. Counseled Regarding: Diagnosis, Lab results, Need for admission Patient Discharge & Departure Impression: Primary Impression: Transient ischemic attack Transient cerebral ischemia type: unspecified Qualified Code: G45.9 - Transient cerebral ischemic attack, unspecified Additional Impressions: Altered mental status Altered mental status type: unspecified Qualified Code: R41.82 - Altered mental status, unspecified Hyperkalemia Disposition: ADMITTED TO HOSPITAL Referrals: Zahira Kemp (PCP) Crit Care Except Billable Proc Time Spent: 30-74 minutes Services Performed: Patient management by me, Time spent at bedside, Reviewing test results, Reviewing imaging, Discussing patient care, Documentation in record, Time with fam/surrogate Scribe Attestation Portions of this note were transcribed by Lyric Mcmanus. I, Dr. Green personally performed the history, physical exam and medical decision-making; I reviewed and confirmed the accuracy of the information in the transcribed note. Signed by: Lyric Mcmanus 01/28/17, 1640 copies to: Zahira Kemp Ben M MD Jan 28, 2017 14:51 LYRIC MCMANUS Jan 28, 2017 15:02
--- NOTE | 2017-01-28 15:07 | DRSVH ---
PROCEDURE: CT BRAIN (TPA) ([id number]) INDICATIONS: Slurred speech. Altered mental status. TECHNIQUE: Noncontrast 4.5 mm thick angled axial sections acquired from the foramen magnum to the vertex, with c oronal reformats. COMPARISON: [facility], MR, MR BRAIN WO CON, 01/24/2017, 14:39. [facility], CT, CT BRAIN WO CON, 01/23/2017, 10:38. FINDINGS: Image quality: Excellent. CSF spaces: Basal cisterns are patent. No extra-axial fluid collections. The ventricles are symmet eliseo in size and shape. Brain: No intracranial bleeds or masses. Prominent frontal and parietal perivascular spaces are stab le compared to prior MRI. There is cerebral volume loss for age, with resultant ventricular and sulc al prominence. There are periventricular and deep white matter chronic small vessel ischemic changes . There is intracranial internal carotid artery and vertebral artery atherosclerosis. Skull and face: Calvarium and visualized facial bones appear intact, without suspicious lesions. Sinuses: Visualized sinuses and mastoids are clear. IMPRESSION: 1. No acute intracranial disease process. 2. Findings telephoned to Dr. Johny Green on 01/28/2017 at 1503 hrs. This study fulfills neurological imaging criteria for inclusion or exclusion of acute stroke therapie s based on available published neurological guidelines. Dictated by: Patti Thomas MD, PhD on 01/28/2017 at 15:01 Approved by: Patti Thomas MD, PhD on 01/28/2017 at 15:05
[2017-01-28 15:20] LABS: BASOPHILS % (AUTO) 0.5 % (0-3); EOSINOPHILS % (AUTO) 2.6 % (0-5); Mean Corpuscular Hemoglobin 29.3 pg (27.0-35.0); Mean Corpuscular Volume 109.8 fL (81-100); NEUTROPHILS % (AUTO) 73.3 % (40-74); Platelet Count 135 bil/L (150-400)
[2017-01-28 15:52] LABS: INR 0.83 ratio
[2017-01-28 16:02] LABS: TROPONIN T < 0.010 ug/L (0.0-0.011)
[2017-01-28] MEDS ORDERED: Alum-Mag Hydrox-Simeth 30 mL Suspension PO PRN (16:45)
[2017-01-28] MEDS ORDERED: Ondansetron 2 mg/mL 2 mL Inj IVPUSH PRN (16:45)
[2017-01-28] MEDS ORDERED: _Albuterol 2.5 mg/3 mL Neb NEB PRN (18:25)
[2017-01-28] MEDS ORDERED: Thiamine Inj 100 MG, Folic Acid Inj 1 MG, Magnesium Sulfate 50% Inj 2 GM, Multivitamins... IV ONE ×5 (18:25)
[2017-01-28] MEDS ORDERED: Labetalol 5 mg/mL 4 mL Inj IVPUSH PRN (18:35)
--- NOTE | 2017-01-28 18:53 | NUR ---
ADMIT Admitted a 71/F into room 3030 at 1745 this evening following report from ED SERENA Sargent. Pt accompanied by dtr, "Lorenzo". Most of hx and explanation of concerns given from dtr. Pt with some confusion, often interjecting with unrelated information. Pt states she is on 3L of 02 at home, per pt "it has to be 3L all the time" despite dx of COPD. Pt up with 1 person assist with FWW, she is a falls risk. Pt knows date/location. L AC IV flushing easily without issue. Pt failed swallow eval in ED, currently NPO pending swallow eval. Pt aware of Q6 blood sugar checks. On TELE: telephone clerks supervisor called to report elevated ST - this was present in ED as well. MD on unit, aware and does not want a EKG done. Pt has no pain/discomfort. Pt introduced to staff, bed controls/call light and importance to call staff to get OOB. Bed in lowest, locked position with call light in reach. MD at bedside.
[2017-01-28 20:18] LABS: TROPONIN T < 0.010 ug/L (0.0-0.011)
[2017-01-28] MEDS ORDERED: Fluticasone-Salmeterol 100-50 Inhaler INHALATION SCH (20:30)
[2017-01-28] MEDS ORDERED: [UNRECOGNIZED DRUG - OTHER] IH SCH (20:30)
[2017-01-28] MEDS ORDERED: SALMETEROL IH SCH (20:30)
[2017-01-28] MEDS ORDERED: Doxycycline Inj 100 MG in Dextrose 5% Minibag Plus 100 ML IV SCH (20:30)
[2017-01-28] MEDS ORDERED: FLUTICASONE IH SCH (20:30)
[2017-01-28 20:56] LABS: APPEARANCE,URINE HAZY (CLEAR,HAZY); COLOR,URINE YELLOW (YELLOW); OCCULT BLOOD,URINE NEGATIVE (NEGATIVE); PH,URINE 5.5 (5.0-8.0); UROBILINOGEN,URINE NORMAL (NORMAL)
[2017-01-28] MEDS: Nystatin 100,000 Unit/mL 5 mL Suspension PO SCH (21:36)
[2017-01-28] MEDS: Sucralfate 1,000 mg Tablet PO SCH (21:36)
[2017-01-28] MEDS ORDERED: Calcium GLUCO 10% (mEq) Inj 4.65 MEQ in Dextrose 5% 50 ML IV ONE (21:40)
[2017-01-28] MEDS ORDERED: Levalbuterol 0.63 mg/3 mL Inhalation Solution NEB ONE (21:45)
--- NOTE | 2017-01-28 22:02 | PCM.HPMED ---
Subjective Date of Service Jan 28, 2017 Primary Provider: Admitting Physician: Johny Green MD Primary Care Physician: Zahira Kemp Attending Physician: Johny Green MD History of Present Illness: unresponsive HISTORY was OBTAINED FROM PATIENT daughter / [facility] NOTES History of present illness 71-year-old female, hospitalized 01/23-, and discharged yesterday w/ new propanolo/plavix/buspar/ppi/carafate for TIA/ orthostatic hypotension/gastric ulcer/tremor. Now, she presented with daughter noting 5 minutes of unresponsiveness today at 1:30 PM after waking up from a nap , associated eyes rolled up and daughter performing 2 sternal rubs before for she expresses verbally this discomfort, daughter and were 2 person assist while she stood and shuffled to wheelchair into the car, and evaluated in the ER. Daughter had called EMS but patient told her she could not afford another EMS bill and so daughter drove her to ER. tachycardia/ dysarthria/ confusion and upper extremity weakness, which all resolved by the time she reached the emergency department. in the ER, Left leg raise weakness. Last night she was confused. No tongue biting, no prior seizure, no incontinence. Visual hallucinations she indicates to her daughter that she is watching TV. There is no TV in the room. Per ER note, Left arm was limp but per daughter that was the only arm she could reach so unlikely one sided weakness but generalized unconsciousness. They have not used the home bp cuff at home yet. In the ER vital signs stable, her daughter, who is a nurse, refused aspirin recommended by on-call neurologist Dr. Laws, due to diffuse ecchymosis from plavix/anemia/thrombocytopenia, already took plavix this am. [place] stroke team recommended against TPA. On-call neurologist recommended cardiac monitoring and EEG. NIH score 2 per ER doc - Left lower limb weaker than Right. Patient did not have an EP SPECIALIST swallow evaluation. She swallowed much water in my presence w/o difficulty. Inthe mills, pt is impatient to answer questions, quite alert and oriented but inappropriately answers questions. generalized weakness noted. Review of Systems - none of the following - F/C/sick contact / wt change/ GONZALEZ / sob / cough / cp / acid reflux / n/v/diarrhea / leg swelling No dysuria, recent abx for sinusitis, possible thrush due to recent advair, new ecchymosis in all limbs diffusely since plavix Ambulates w/ walker since discharge yesterday FAMILY HX hypertension SOCIAL HX never smoker, no EtOH MEDICATIONS Ascorbic Acid (Vitamin C) 1,000 Mg Tab.chew 1,000 MG PO DAILY (Reported) Atorvastatin Calcium (Atorvastatin Calcium) 10 Mg Tablet 10 MG PO HS Buspirone (Buspirone) 15 Mg Tablet 7.5 MG PO BID Clopidogrel (Clopidogrel) 75 Mg Tablet 75 MG PO DAILY Diltiazem ER (Cardizem CD) 120 Mg Cap.er.24h 240 MG PO DAILY Fluticasone/Salmeterol (Advair Hfa 115-21 Mcg Inhaler) 12 Gm Hfa.aer.ad 2 PUFF IH BID (Reported) Iron Sucrose Complex (Venofer) 200 Mg/10 Ml Vial 200 MG IV Q72H Lactobacillus Combination No.4 (Probiotic) 1 Each Capsule 1 EACH PO DAILY ( Reported) Lisinopril (Lisinopril) 10 Mg Tablet 10 MG PO DAILY (Reported) Pantoprazole DR (Pantoprazole DR) 40 Mg Tablet.dr 40 MG PO BIDAC Propranolol HCl (Propranolol HCl) 20 Mg Tablet 20 MG PO TID Sucralfate (Carafate) 1 Gm Tablet 1 GM PO QID Vit D3/Folic Acid/B2/B6/B12 (Folgard Tablet) 1 Each Tablet 1 EACH PO DAILY ( Reported) Scheduled PRN Albuterol HFA (Proair HFA) 8.5 Gm Hfa.aer.ad 2 PUFFS INHALATION Q4H PRN PRN For Shortness of Breath (Reported) Albuterol Neb Soln (Albuterol Neb Soln) 2.5 Mg/3 Ml Vial.neb 2.5 MG INHALATION QID PRN PRN For Shortness of Breath (Reported) advair Past Medical/Surgical HX Chronically elevated ST, tachycardia unrelated to albuterol Vertigo with recurrent sinus infections antral Ulcer 01/26/17 /polyps/GERD/ esophageal diverticulum/dysmotility-soft diet , f/u Velasco pending Diarrhea/constipation Stress incontinence TIA, COPD on 3L of oxygen -Echo: EF of 60-65% -Lipid panel within normal limits -Hemoglobin A1c 5.3 within normal limits -OT recs walker for stability Hypertension Chronic Anemia, s/p iron transfusions Hypertension Orhtostatic Hypotension: Likely due to autonomic dysfunction versus dehydration versus anemia versus functional debility Tremor, unknown cerebellar versus essential tremor versus orthostatics tremors versus Parkinson's versus anxiety versus anemia -- Propranolol started CKD stage III (baseline Cr. 3 as reported by patient-unsure if this is accurate) Elevated troponins associtated CVA/TIA Anxiety disorder, -- Patient is started on BuSpar during this admission she is agreeable to this plan Tubal ligation/tonsillectomy Gallstones Exam on admission room air NAD A and O x 3 mood affect WNL verbose, impulsive speech NC/AT no icterus no injected eyes EOMI PERRL // no oral lesions / hearing deficit // upper palate w/ thrush Supple neck baseline crackles bilateral/ equal chest rise / no accessory muscle use / speaks in full sentences RRR S1 S2 / no mrg / 2+ radial pulses Soft nt nd + BS no hepatosplenomegaly No edema no cyanosis no ecchymosis of lower extremities No rash / no jaundice [place] CNII-XII grossly intact symmetrical Strength grossly intact of bilateral upper and lower limbs symmetrical 4+/5 symmetrical Sensation grossly symmetrical of bilateral upper and lower limbs symmetrical facies, no dysarthria, no dysphagia STUDIES EKG ST elevation diffuse SR 61 Trop neg UA pending LFT normal, INR 0.83, PTT 29.4 PROCEDURE: CT BRAIN (TPA) ([id number]) INDICATIONS: Slurred speech. Altered mental status. TECHNIQUE: Noncontrast 4.5 mm thick angled axial sections acquired from the foramen magnum to the vertex, with coronal reformats. COMPARISON: [facility], MR, MR BRAIN WO CON, 01/24/2017, 14:39. [facility], CT, CT BRAIN WO CON, 01/23/2017, 10:38. FINDINGS: Image quality: Excellent. CSF spaces: Basal cisterns are patent. No extra-axial fluid collections. The ventricles are symmetric in size and shape. Brain: No intracranial bleeds or masses. Prominent frontal and parietal perivascular spaces are stable compared to prior MRI. There is cerebral volume loss for age, with resultant ventricular and sulcal prominence. There are periventricular and deep white matter chronic small vessel ischemic changes. There is intracranial internal carotid artery and vertebral artery atherosclerosis. Skull and face: Calvarium and visualized facial bones appear intact, without suspicious lesions. Sinuses: Visualized sinuses and mastoids are clear. IMPRESSION: 1. No acute intracranial disease process. 01/23/17 echo Interpretation Summary The left ventricle is normal in size, wall thickness, and systolic function without any focal wall motion abnormalities. The ejection fraction is estimated to be 60-65%. The right ventricle is normal in size and function. The right ventricular systolic pressure is estimated at 30 mmHg assuming a right atrial pressure of 3 mm Hg. The left atrium is mildly dilated. Right atrial size is normal. There is no significant valvular heart disease. The aortic root is normal size. No obvious source for cardioembolic stroke. 01/24/17 CT ANGIO HEAD AND NECK (P) INDICATIONS: R/O Cerebrial Vascular Disease Intracranial TECHNIQUE: Pre-contrast 4.5 mm thick sections acquired from the foramen magnum to the vertex. After the administration of intravenous contrast, 1 mm thick sections acquired from the aortic arch through the [place] of [place]. Post-contrast 4.5 mm thick sections then re-acquired from the foramen magnum to the vertex. 3- dimensional ypsgatz-vtxuolgor-pbzjzsdtjg (MIP) and/or volume rendering reformats were acquired of the central intracranial vasculature and neck separately. For radiation dose reduction, the following was used: automated exposure control, adjustment of mA and/or kV according to patient size. COMPARISON: [facility], CT, CT BRAIN WO CON, 01/23/2017, 10:38. FINDINGS: Image quality: Excellent. BRAIN: CSF spaces: Ventricles are normal in size and shape. Basal cisterns are patent. No extra-axial fluid collections. Brain: No midline shift. No intracranial bleeds or masses. Small areas of loss of normal morton-white matter differentiation noted in the left parietal lobe and left frontal lobe suspicious for subacute infarcts. Skull and face: Calvarium and facial bones appear intact, without suspicious lesions. Orbits appear normal. Sinuses: Sinuses and mastoids are clear. HEAD CT ANGIOGRAPHY: Anterior circulation: Intracranial internal carotid arteries are normal in size and flow. Atherosclerotic calcifications noted in cavernous segment of the internal carotid arteries bilaterally which cause multifocal mild stenoses. The flow within the paired anterior cerebral arteries is normal and symmetric. The flow within the middle cerebral arteries is normal and symmetric. The anterior communicating artery is seen. No aneurysms are seen. Posterior circulation: Visualized portions of the vertebral arteries demonstrate normal caliber, and join to form a normal appearing basilar artery. Atherosclerotic calcification noted in the proximal V4 segment of the left vertebral artery which does not cause measurable stenosis. Flow within the posterior cerebral arteries is normal and symmetric. No aneurysms are seen. There is normal contrast enhancement of the dural sinuses. NECK CT ANGIOGRAPHY: Carotid system: The great vessels demonstrate a conventional anatomy as they arise from the aortic arch. The left which artery arises from the aortic arch proximal to the origin of the left subclavian artery. The origins of the common carotid arteries appear patent. The common carotid arteries demonstrate normal caliber and courses. The bifurcation regions are both widely patent. The internal carotid arteries demonstrate normal calibers and courses. Minimal atherosclerotic desiccation noted in the origin of the left internal carotid artery which does not cause measurable stenosis. Posterior circulation: The origins of the vertebral arteries both appear widely patent. The more superior extracranial portions of both vertebral arteries also demonstrate normal courses and calibers. They join to form a normal appearing basilar artery. Soft tissues: Visualized neck soft tissues demonstrate no suspicious abnormalities. 1.1 cm soft tissue density lesion noted in the left paramedian posterior upper back subcutaneous fat likely represents a small sebaceous cyst. Bones: Cervical spine degenerative disc disease and facet arthropathy are noted. No suspicious bony lesions. Visualized cervical spine appears normally aligned. IMPRESSION: 1. No hemodynamically significant stenosis. 2. No vascular occlusion. 3. No intracranial hemorrhage. 4. Small hypodensities involving the left frontal lobe and left parietal lobe suspicious for subacute infarcts. 01/24/2017 MRI BRAIN WITHOUT CONTRAST INDICATIONS: WEAKNESS,SLURRED SPEECH, R/O CVA TECHNIQUE: Non-contrast axial T1 spin echo, axial T2 fast spin echo, sagittal and axial FLAIR, coronal T2 fast spin echo, axial gradient echo, axial diffusion and ADC through the brain. COMPARISON: [facility], CT, CT ANGIO BRAIN AND NECK, 01/24/2017, 13: 44. [facility], CT, CT BRAIN WO CON, 01/23/2017, 10:38. FINDINGS: Image quality: Limited by patient motion artifact. CSF spaces: Ventricles appear symmetric in size and shape. Basal cisterns are patent. No extra-axial fluid collections. Brain: No intracranial bleeds or mass effects. There is cerebral volume loss for age. There are periventricular and deep white matter chronic small vessel ischemic changes. Incidental note made of prominent perivascular spaces in the cerebral hemispheres. A Brainstem appears normal. Diffusion-weighted images show no acute ischemic insults. No chronic ischemic insults. Normal intravascular flow voids are present. Skull and face: Calvarial bone marrow is normal in signal. Orbits are normal. Sinuses: Sinuses and mastoids are clear. IMPRESSION: 1. No acute intracranial disease process. 2. Mild, diffuse on loss. 3. Mild periventricular and subcortical white matter chronic microvascular ischemic changes. 4. No areas of acute or chronic infarction. 5. Prominent cerebral hemisphere perivascular spaces. Prominent perivascular spaces in the left frontal and parietal lobes correspond to hypodensities identified by prior CT scans. Allergies Coded Allergies: Penicillins (Verified Allergy, Severe, Anaphylaxis, 01/28/17) budesonide (Verified Allergy, Severe, Restlessness, 01/28/17) formoterol (Verified Allergy, Severe, Restlessness, 01/28/17) levofloxacin (Verified Allergy, Severe, Hallucinations, 01/28/17) PMH Social History Hx Alcohol Use: No Hx Substance Use: No Smoking Status: Unknown if Ever Smoker Exam Vital Signs Vital Sign - Last Date Time Temp Pulse Resp B/P Pulse Ox O2 Delivery O2 Flow Rate FiO2 01/28/17 18:04 37.3 72 18 128/70 97 Nasal Cannula 3.00 Lab and Diagnostics Result Diagram: 01/28/17 1507 01/28/17 1507 Assessment & Plan Active issues and reason for admission 78y f discharged yesterday primarily for TIA managment, returned today after LOC , confusion noted last night at home, possible left lower limb weakness during ER's exam, few new medications had been initiated, w/ ongoing encephalopathy demonstrated by visual hallucination, repetitive answers, impulsive speech, but symmetrical strength/sensation/verbose/active. Encephalopathy/loss of consciousness associated Visual hallucinations and diffuse weakness, resolving Consider Lazarus's paralysis, no prior seizure, prior orthostatic hypotension associated w/ light flashes --- pending EEG, stop plavix, resume asa per Dr. Burden/neurologist oncall Treat UTI, last hospitalization ecoli w/ nitrite in UA, multiple allergies, tolerated doxycyline in past --- start doxycycline, pending repeat UA and bladder scan Consider delirium --- pending thyroid panel/RPR/Vit D/B12, banana bag x 1 now Consider recurrent TIA, history not consistent w/ recurrent TIA ---normal Echo EF 60-65% / normal lipid/A1c panel ---continue asa/lipitor, OT/PT, hold repeat MRI until EEG, re-assess w/ oncall neurologist sunday Consider hypotension, prior admission consistent w/ orthostatic hypotension, ---pending cortisol level/serial trop, hold lisinopril Hold new medications - propanolol/buspar (tremor of unknown etiology/anxiety started during recent hospitalization) Eventually was to f/u w/ Dr Reyna from last hospitalization. 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, prior reticulocyte consistent w/ underproduction --confounding gastric ulcer --anticipate scheduled iron infusion on sunday --B12 injection now, folate in banana bag antral ulcer --continue ppi/carafate Recurrent Hyperkalemia --banana bag IVF, kaexylate, avery gluconate, lev-albuterol --hyperkalemic 01/23 admission initially --pending cortisol --pending CPK thrush --recent advair, multiple sinusitis infections treated w/ abx recently COPD --trial BID ipratropium and xopenex prn Chronic issues known prior to admission, present on admission Vertigo with sinus infections Chronically elevated ST//tachycardia unrelated to albuterol, 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 3 as reported by patient-unsure if this is accurate) Anxiety disorder --continue home diltiazem Diet dysphagia DVT prophylaxis hold while diffuse ecchymosis/already on plavix/thromboctyopenic , just scd Code full Disposition inpt, pending OT (they had recommended walker prior to discharge, continue w/ their services) Assessment and plan were discussed with patient and daughter Sahil Young MD Jan 28, 2017 18:22
[2017-01-28] MEDS ORDERED: FLUT1DIS5 IH (23:44)
[2017-01-29] VITALS (13 sets, daily range): BP systolic 127–161; BP diastolic 58–75; PULSE 76–95; RESP 18–22; O2SAT 89–100
[2017-01-29] MEDS: Albuterol 2.5 mg/3 mL Inhalation Solution NEB PRN ×2 (01:15→08:48)
[2017-01-29 05:53] LABS: Mean Corpuscular Hemoglobin 29.7 pg (27.0-35.0); Mean Corpuscular Volume 108.4 fL (81-100)
[2017-01-29 05:54] LABS: BASOPHILS % (AUTO) 0.3 % (0-3); EOSINOPHILS % (AUTO) 3.3 % (0-5); MONOCYTES % (AUTO) 13.6 % (4-12); NEUTROPHILS % (AUTO) 68.1 % (40-74); Platelet Count 119 bil/L (150-400)
[2017-01-29 06:24] LABS: TROPONIN T 0.01 ug/L (0.0-0.011)
--- NOTE | 2017-01-29 06:35 | NUR ---
Neuro/SOB and O2 Titration Neuro stable overnight: Alert and orientedx3, sometimes "off track" when answer questions per daughter,denies hallucination,no speech difficulty noted, no facial droop noted, tongue midline,full strength bilateral arms, generalized weakness,equal strength bilateral LEs,but jerky movement,unsteady gait and dizzy when OOB. Sensation intact. Ortho BP positive about 20mmHg down from lying to standing position. [place] alarm on. No fall. Denies SOB at bedrest. Home O2 3l. Titrate O2 between 2-3L, SPO2 88-97% while closely monitor O2 sat via LANDSCAPE PAINTER. pt appears significantly SOB when OOB to commode, desat to low 80s with activities,SPO2 back to low 90s in 1-2 min after pt back to bed. Crackles on bilateral LLs, no wheezes noted. NEB by RT.Pt declines prn NEB when offered.
[2017-01-29] MEDS: Sucralfate 1,000 mg Tablet PO SCH ×4 (06:48→21:34)
[2017-01-29] MEDS: Pantoprazole 40 mg ER24 Tablet PO SCH ×2 (07:49→16:48)
[2017-01-29] MEDS: Fluticasone-Salmeterol 500-50 Inhaler INHALATION SCH ×2 (10:41→21:32)
[2017-01-29] MEDS: Nystatin 100,000 Unit/mL 5 mL Suspension PO SCH ×4 (10:45→21:38)
[2017-01-29] MEDS: Diltiazem CD 120 mg ER24 Capsule PO SCH (10:45)
--- NOTE | 2017-01-29 12:05 | NUR ---
Off unit Pt off unit to MRI, radiologic technologist notified. Addendum: 01/29/17 at 1235 by ELAINE CASTRO RN Pt back on unit, radiologic technologist notified.
--- NOTE | 2017-01-29 12:12 | NUR ---
Evaluation completed. Please go to "Notes" then click on "Assessments and Notes" (bottom left corner of screen). Then select appropriate discipline tab on top of screen.
[2017-01-29] MEDS: cefTRIAXone Inj 1,000 MG in Dextrose 5% Minibag Plus 50 ML IV SCH (12:44)
--- NOTE | 2017-01-29 13:50 | DRSVH ---
PROCEDURE: MRI BRAIN WITHOUT CONTRAST ([id number]) INDICATIONS: acute stroke, syncopal spell TECHNIQUE: Noncontrast axial T1 spin echo, axial T2 fast spin echo, sagittal and axial FLAIR, coronal T2 fast sp in echo, axial gradient echo, axial diffusion and ADC through the brain. COMPARISON: [facility]ed With [facility], CT, BRAIN (TPA), 01/28/2017, 14:55. Merged With [facility], MR, MR BRAIN WO CON, 01/24/2017, 14:39. FINDINGS: Image quality: Excellent. CSF Spaces: Basal cisterns are patent. No extra-axial fluid collections. Ventricles are normal in size and shape. Brain: No intracranial masses or hemorrhage. Stewart/white matter interface is normal. Brainstem appe ars normal. Diffusion-weighted images demonstrate no acute ischemic insult. No chronic ischemic ins ults. Normal intravascular flow voids are present. Skull and face: Calvarium has normal marrow signal. Orbits appear normal. Sinuses: Sinuses and mastoids are clear. IMPRESSION: Mild microvascular atherosclerotic change in the deep white matter of each hemisphere, no acute or subacute ischemic injury is found. No trauma seen, no hemorrhage present. Dictated by: Adebayo Hammer M.D. on 01/29/2017 at 13:47 Approved by: Adebayo Hammer M.D. on 01/29/2017 at 13:48
--- NOTE | 2017-01-29 15:23 | CONS ---
[address] [address] CONSULTATION REPORT PATIENT: DANNY DICKENS : 1945 MR#: [id number] ADMIT: 01/28/2017 JOB ID: [id number] DATE OF SERVICE: 01/29/2017 REQUESTING PHYSICIAN: Dr. Saxena HISTORY OF PRESENT ILLNESS: The patient is a 71-year-old female, recently discharged for possible TIA, presenting to the emergency department with slurred speech following an episode of syncope. Her daughter, Lorenzo Camarena, who is an emergency department nurse at [employer] in [place], brought her to the emergency department at [facility] after to sternal rounds failed to alert her at home. Her mother revived and became close to baseline. Her mother is an emotional person at baseline and became hysterical at thinking about the cost of using EMS therefore Lorenzo drove her to the hospital Upon arrival, she was noted to be tachycardic and mildly confused but close to baseline without any focal findings. She was appropriately evaluated for stroke with an NIH stroke score of 2, due to bilateral lower extremity leg drift. She was deemed not a candidate for tPA given her rapidly improving symptoms. Blood pressure was 117/58, pulse 61, and normal sinus rhythm on telemetry, afebrile, with laboratories continuing to demonstrate anemia with hemoglobin/hematocrit 10.2/38.2, and platelets 138, as well as elevated creatinine at 1.26 and potassium elevated at 5.7. The patient advises me that this episode occurred in the context of significant fatigue and stress. 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 She is getting no rest due to her mother not sleeping up until 3 AM every day. She has been considering placement for her mother or someone to come into the home since her mother has stated she would if she went in a senior care. This has created increased level of stress which has been adversely affecting her. She denies any palpitations, shortness of breath, aside from her normal shortness of breath associated with COPD. The patient admits to extreme anxiety. This morning, nursing staff noted twitching which the patient did not demonstrate when I entered the room, but then reported having it when she was ambulating and began to demonstrate the twitching. She appears distressed and anxious. Her recent discharge notes show draft reports for both Cardiology and Neurology but no evidence of stroke was seen on the MRI, despite initial CT findings on January 23, 2017. The January 24, 2017 MRI, which I have personally reviewed, shows old lacunar infarcts in both hemispheres. Otherwise, no abnormalities, and head and neck CT angiography showed no vascular change. The echocardiogram did show an enlarged left atrium. She has been in sinus rhythm through that hospitalization and today. Her past medical history, family history, social history are noted and found to be unchanged from the consultation note from Dr. Reyna in neurology, dated January 24, 2017. REVIEW OF SYSTEMS: As per the history of present illness. All other systems are reviewed and reported as negative. PHYSICAL EXAMINATION: The patient is pleasant and cooperative. She appears anxious but otherwise in no apparent distress. Vital signs: Blood pressure 128/75, heart rate 88, temperature afebrile. Pulse oximetry 100% on 3 L nasal cannula. Head: Normocephalic, atraumatic. No evidence of carotid bruits. Lungs: Coarse breath sounds noted in both sides. Lower extremities: No edema in the lower extremities. Skin warm to the touch. NEUROLOGIC EXAMINATION: The patient is alert and oriented x3, with language and speech intact and fluent. However, there is occasional mild slurring. Mood is anxious. No cognitive impairment noted in conversation. Cranial nerves: Pupils equally reactive to light and accommodation. Extraocular movements intact. No facial asymmetry. Sensation intact on the face bilaterally. Tongue midline. Palate raises symmetrically. SCM and shoulder shrug, as well as hearing appear to be intact bilaterally. Motor strength: Intact upper and lower extremities. Deep tendon reflexes: Trace throughout with plantar reflex flexor bilaterally. Sensation: Diminished sensation to vibration to the knees bilaterally. Intact to pinprick throughout. Tone: Intact upper and lower extremities. Coordination: Intact [id number] and tjnz-dj-lhmf bilaterally. Gait: Deferred at this time. EEG completed, results pending. Initial review did not show any epileptiform abnormalities but there is considerable muscle artifact. Please see detailed report separately. IMAGING STUDIES: Head CT, from January 28, 2017, and as above. No acute findings on the head CT. LABORATORY STUDIES: As above. Today hemoglobin/hematocrit is 9.2/33.6, with platelets 119. Creatinine 1.13. Potassium 5.5. Thyroid studies pending. UA with positive nitrites. RPR pending. ASSESSMENT AND RECOMMENDATION: The patient is a 71-year-old female, recently discharged from the hospital due to possible transient ischemic attack caused by vision changes. MRI of the brain at that time did not show evidence of acute stroke but did show chronic lacunar infarcts in both hemispheres. Echocardiogram also showed enlarged atria. The patient has electrolyte abnormalities and anemia of unclear etiology. She expresses concerns about anxiety and is showing signs of extreme caregiver stress. Myoclonus was not demonstrated until the patient thought about it with distraction eliminated myoclonus. I will defer to Dr. Saxena for her medical problems and electrolyte abnormalities, anemia noted on exam, but in terms of the episode which appears to be syncopal, it may have its origin in cardiac arrhythmia, fatigue, or a combination of this with electrolyte abnormalities. Long-term, cardiac monitoring on discharge is recommended. I understand the patient has established with a watershed program manager. I also recommended addressing the patient's caregiver stress, which she talked about extensively with me today, since I am her mother's neurologist. Her mother has Lewy body dementia and is apparently not sleeping, which is causing extreme caregiver stress and contributing to the patient's chronic health problems. I requested an MRI of the brain to look for any evidence of acute stroke. I will comment after the study is completed. Thank you for this consultation. Please call if needed. ADDENDUM: No evidence of acute stroke by MRI. EEG shows slowing but no epileptiform abnormalities. Results discussed with the patient. I spoke with the patient's daughter Lorenzo who is an RN at [employer] in [place]. I told her about my recommendations for cardiac monitoring after discharge and management of her chronic medical problems as well as reduction of caregiver stress. She advises me that arrangements are being made for her grandmother to either have in-home care or be placed in a facility. She reports that the patient is between PCPs right now but will follow-up with the new PCP. I will sign off for now. Please call if needed. An additional 30 minutes was spent reviewing imaging studies and speaking with the patient's daughter for a total consultation time of 60 minutes. GERI
--- NOTE | 2017-01-29 15:35 | NUR ---
Evaluation completed. Please go to "Notes" then click on "Assessments and Notes" (bottom left corner of screen). Then select appropriate discipline tab on top of screen.
--- NOTE | 2017-01-29 15:43 | NUR ---
Evaluation completed. Please go to "Notes" then click on "Assessments and Notes" (bottom left corner of screen). Then select appropriate discipline tab on top of screen.
--- NOTE | 2017-01-29 15:45 | PCM.PNMED ---
Subjective Date of Service Jan 29, 2017 Subjective Patient states slurring of speech has resolved. She states her current episode is related to her being very stressed and not getting enough sleep due to taking care of her 89-year-old mom with Lewi body dementia who is not sleeping much recently. She denies any weakness but has tremor in both hands Exam Vital Signs Vital Sign - Last Date Time Temp Pulse Resp B/P Pulse Ox O2 Delivery O2 Flow Rate FiO2 01/29/17 14:50 36.7 86 18 137/73 100 Nasal Cannula 2.00 Intake and Output 01/28/17 01/28/17 01/29/17 Cumulative From/Thru 15:00 23:00 07:00 01/28/17 14:56 - 01/29/17 06:51 Intake Total 0 ml 1233 ml 1233 ml Output Total 0 ml 1800 ml 1800 ml Balance 0 ml -567 ml -567 ml Intake Oral 0 ml 285 ml 285 ml IV Total 948 ml 948 ml Output Urine Total 0 ml 1800 ml 1800 ml Exam Gen. patient is lying comfortably in hospital bed HEENT: Head is normocephalic atraumatic, Pupils equal and reactive, extraocular movements intact, Lungs clear to auscultation bilaterally Heart regular rate and rhythm without murmurs gallops or rubs Abdomen soft nontender without hepatosplenomegaly Extremities pulses are present dorsalis pedis posterior tibialis and radial. tSkin is warm and dry there are no rashes, Psych alert and oriented to person place and time Neuro cranial nerves II through XII are grossly intact, symmetrical Strength grossly intact of bilateral upper and lower limbs symmetrical 4+/5 symmetrical Sensation grossly symmetrical of bilateral upper and lower limbs symmetrical facies, no dysarthria, no dysphagia Lymph: There is no lymphadenopathy appreciated in the cervical supra infraclavicular regions : no leo IVs and Medications Medications Reviewed: Medications were reviewed in detail Lab and Diagnostics Result Diagram: 01/29/1752901/29/17529 X-Rays, CTs and MRIs PROCEDURE: MRI BRAIN WITHOUT CONTRAST ([id number]) INDICATIONS: acute stroke, syncopal spell TECHNIQUE: Noncontrast axial T1 spin echo, axial T2 fast spin echo, sagittal and axial FLAIR, coronal T2 fast spin echo, axial gradient echo, axial diffusion and ADC through the brain. COMPARISON: [facility], CT, BRAIN (TPA), 01/28/2017, 14:55. [facility], MR, MR BRAIN WO CON, 01/24/2017, 14:39. FINDINGS: Image quality: Excellent. CSF Spaces: Basal cisterns are patent. No extra-axial fluid collections. Ventricles are normal in size and shape. Brain: No intracranial masses or hemorrhage. Stewart/white matter interface is normal. Brainstem appears normal. Diffusion-weighted images demonstrate no acute ischemic insult. No chronic ischemic insults. Normal intravascular flow voids are present. Skull and face: Calvarium has normal marrow signal. Orbits appear normal. Sinuses: Sinuses and mastoids are clear. IMPRESSION: Mild microvascular atherosclerotic change in the deep white matter of each hemisphere, no acute or subacute ischemic injury is found. No trauma seen, no hemorrhage present. Dictated by: Adebayo Hammer M.D. on 01/29/2017 at 13:47 Assessment & Plan 78y f discharged yesterday primarily for TIA managment, returned today after LOC , confusion noted last night at home, possible left lower limb weakness during ER's exam, few new medications had been initiated, w/ ongoing encephalopathy demonstrated by visual hallucination, repetitive answers, impulsive speech, but symmetrical strength/sensation/verbose/active. #. Brief loss of consciousness associated Visual disturbance and diffuse weakness of unclear etiology, resolving Due to recurrent TIA versus UTI versus CO2 narcosis , history not consistent w / recurrent TIA -Postictal unlikely. reported body movement seems her baseline tremor. Suspect possible CO2 narcosis following nap. She has significant CO2 retention with serum bicarbonate 42. Last PFT reportedly shows FEV 1 18% , will request evaluation for Triology BiPAP ---normal Echo EF 60-65% / normal lipid/A1c panel ---continue asa/lipitor, OT/PT, repeat MRI negative for acute stroke. -Dr Powell recommends outpatient telemetry to diagnose occult PAF due to possibility of recurrent TIA -patient states her current episode is related to her being very stressed and not getting enough sleep due to taking care of her 89-year-old mom with Lewi body dementia who is not sleeping much recently.patient states "if somebody can fix her moms current behavioural/sleep issue it will solve my current symptoms". Dr Powell is patient's mom neurologist as well.she recommends to provide info for patient's mothers terminologist or respite placement .consulted SW -EEg pending # Acute UTI -Urine culture growing > 100,000 E .coli -Start ceftriaxone # Acute on chronic hypoxic and hypercapnic respiratory failure due to advanced COPD -Suspect possible CO2 narcosis following nap. She probably has significant CO2 retention with serum bicarbonate 42. Last PFT reportedly shows FEV1 18% , will request evaluation for Triology BiPAP #. 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 Gastric antral ulcer --continue ppi/carafate #. Recurrent Hyperkalemia --banana bag IVF, kaexylate, avery gluconate, lev-albuterol --hyperkalemic w/ 01/23 admission initially --pending cortisol #. thrush --recent advair, multiple sinusitis infections treated w/ abx recently Chronic issues known prior to admission, present on admission #Vertigo with sinus infections #Chronically elevated ST//tachycardia unrelated to albuterol, extensive w/u by scrap separator in past #Antral Ulcer 01/26/17/GERD/ esophageal diverticulum/dysmotility-soft diet, f/u with [facility] #Hypertension // Orthostatic Hypotension: Likely due to autonomic dysfunction versus dehydration # Tremor, unknown cerebellar versus essential tremor versus orthostatics tremors versus Parkinson's versus anxiety versus anemia # CKD stage III (baseline Cr. 3 as reported by patient-unsure if this is accurate) # Anxiety disorder --continue home diltiazem Diet dysphagia DVT prophylaxis hold while diffuse ecchymosis/already on plavix/thromboctyopenic , just scd Code full Disposition inpt, pending workup VTE Mechanical Devices: Intermittant Pneumatic CD Toni Saxena MD Jan 29, 2017 15:45 Disposition inpt, pending workup VTE Mechanical Devices: Intermittant Pneumatic Toni Landry MD Jan 29, 2017 15:45
--- NOTE | 2017-01-29 16:34 | NUR ---
Activity/Neuro Pt amb in hallway this afternoon with PT, reports feeling weak and wanting to lean to the left. She remained on 3L via NC, denies any SOB although reports "my COPD is there." Tremors continue, more obvious with focused tasks. Dtr at bedside. Bed in lowest, locked position and call light in reach.
--- NOTE | 2017-01-29 16:37 | NUR ---
Social Work Note - Initial Assessment: Data: See Initial Assessment. The Pt is a 71 y/o female that was admitted for TIA altered mental status. Pt is a recent readmit from 01/24 for slurred speech. Readmission Risk not available. The Pt's PCP is GREG Kemp and her primary insurance is Medicare with a [employer] supplement, Pt reports having LTC insurance with AYLEEN Segura and VA survivor benefits. EMR reviewed. AYLEEN met with the Pt and her daughter Alayna (goes by Lorenzo) to explain role and discuss discharge planning, AYLEEN telephone number written on white board. The Pt lives independently with her mother in a one level home in [place]. The Pt provides minimal assistance to her mother, daughter Lorenzo lives a few blocks away and helps them both with meals and shopping as needed. Pt reports that DPOA/Advanced care directive paperwork has not been completed and SW provided info to review and complete. The pt does not drive. She does not use any DME and was recently opened with [facility]. AYLEEN contacted [facility] to inform them that pt is hospitalized. The Pt uses [employer] through [employer] and has a housekeeping assist 2x/week. Family is also very supportive. PT and OT evaluation is pending. Pt likely to discharge home via family with resume PT and RN. SW will continue to follow for needs. Assessment: Pt who is independent at baseline and is receiving services. Plan: Pt likely to discharge home when medically stable with family to provide POV transportation. Resume PT and RN. The Pt and family deny any needs at this time, SW to follow. KATARINA White Addendum: 01/29/17 at 1643 by LAUREN HERNADEZ SS Amended: Links added.
--- NOTE | 2017-01-29 22:12 | PROCED ---
[address] [address] EEG PATIENT: DANNY DICKENS : 1945 MR#: [id number] ADMIT: 01/28/2017 JOB ID: [id number] DATE OF SERVICE: 01/29/2017 REQUESTING PHYSICIAN: Anushka Bliss MD. CLINICAL HISTORY: The patient is a 71-year-old female with [id number] syncopal event and twitchiness. Not on any antiepileptic medication. TECHNICAL DESCRIPTION: This digital EEG was recorded using 25 scalp and ear electrode configured in a 10-20 [employer] Electrode Placement System. DESCRIPTION: While awake and with eyes closed, there are 6 Hz rhythmic and symmetric waveforms seen which attenuate with eye opening. Intermittent slowing is noted, as well as occasional triphasic waves. This is a technically difficult EEG due to EKG artifact and muscle artifact at times obscuring the recording. There are no focal lateralizing or epileptiform abnormalities reliably seen. Activation: Photic driving does not reveal any photoparoxysmal discharges. Hyperventilation was not performed due to history of COPD. EKG/rhythm strip: ST-elevation noted. Regular rhythm seen. IMPRESSION: Abnormal electroencephalogram due to slowing. Evidence of triphasic waves intermittently that suggest metabolic derangement. No obvious epileptiform abnormalities seen. Clinical correlation advised. [facility]
[2017-01-30] VITALS (12 sets, daily range): BP systolic 138–164; BP diastolic 63–73; PULSE 87–107; RESP 15–22; O2SAT 90–99
[2017-01-30 03:08] LABS: Free Thyroxine Index 1.4 (1.2-4.9); T3 Uptake 29 % (24-39); Thyroxine (T4) 4.7 ug/dL (4.5-12.0); Vitamin D, 25-Hydroxy 52.9 ng/mL (30.0-100.0)
--- NOTE | 2017-01-30 04:25 | NUR ---
PT ACTIVITY/NEURO Pt has slept or been in bed most of shift. Pt assisted up to BR w/ walker, and used BSC during latter part of shift. Pt has generalized weakness and malaise, and continues to have intermittent tremorous movements. Pt very aware that she is not strong or stable enough to return home. Pt has remained alert and oriented during shift. Continue to monitor Call light in reach. Bed alarm on. Intentional rounding.
[2017-01-30] MEDS: Sucralfate 1,000 mg Tablet PO SCH ×4 (06:01→21:03)
--- NOTE | 2017-01-30 06:29 | NUR ---
UNABLE TO COMPLETE STANDING ORTHO VS/HYPERKALEMIA Pts muscle twitching significantly more pronounced during am VS obtainment. Pt unable to tolerate standing BP. Pt unsafe to stand independently or w/ assistance. Pts potassium has been elevated since admit. RN will ask oncoming shift to address this w/ hospitalist to determine if this may be cause of muscle twitching and weakness. Continue to monitor.
[2017-01-30] MEDS: Nystatin 100,000 Unit/mL 5 mL Suspension PO SCH ×4 (08:03→21:02)
[2017-01-30] MEDS: Fluticasone-Salmeterol 500-50 Inhaler INHALATION SCH ×2 (08:05→21:08)
[2017-01-30] MEDS: Diltiazem CD 120 mg ER24 Capsule PO SCH (08:05)
[2017-01-30] MEDS: Pantoprazole 40 mg ER24 Tablet PO SCH ×2 (08:05→17:13)
[2017-01-30 09:54] LABS: BASOPHILS % (AUTO) 0.4 % (0-3); Mean Corpuscular Hemoglobin 29.6 pg (27.0-35.0); Mean Corpuscular Volume 109.3 fL (81-100); Platelet Count 133 bil/L (150-400)
[2017-01-30 10:33] LABS: Magnesium 2.2 mg/dL (1.6-2.6); Phosphorus 3.2 mg/dL (2.5-4.9)
[2017-01-30] MEDS: cefTRIAXone Inj 1,000 MG in Dextrose 5% Minibag Plus 50 ML IV SCH (11:43)
--- NOTE | 2017-01-30 16:23 | NUR ---
AYLEEN - Readiness for Discharge Data: Pt is on day 2 of hospitalization for TIA, Altered mental status per H&P. Per morning rounds pt is possible to discharge tomorrow. Pt will resume HH services for RN/PT/OT. Christiane from [facility] met with pt today and will provide home trilogy. She requested SW call her at [phone] on day of discharge. Pt to discharge home via family with [facility] RN/PT and trilogy. [facility] given access. SW will continue to follow for needs. Assessment: Pt who would benefit from HH and non invasive home ventilator. Plan: Pt likely to discharge home tomorrow via family with [facility] RN/PT and non invasive home ventilator. SW will contact [facility] at d/c. SW will continue to follow. KATARINA White
[2017-01-30] MEDS: Albuterol 2.5 mg/3 mL Inhalation Solution NEB PRN (16:28)
--- NOTE | 2017-01-30 16:51 | PCM.PNMED ---
Subjective Date of Service Jan 30, 2017 Subjective Patient more alert and interactive today. No episode of seizure. Afebrile. Urine culture growing Escherichia coli pansensitive. EEG negative for epileptiform activity. Exam Vital Signs Vital Sign - Last Date Time Temp Pulse Resp B/P Pulse Ox O2 Delivery O2 Flow Rate FiO2 01/30/17 16:28 88 18 95 Nasal Cannula 3.00 01/30/17 14:29 37.4 142/64 Intake and Output 01/29/17 01/29/17 01/30/17 Cumulative From/Thru 15:00 23:00 07:00 01/28/17 14:56 - 01/30/17 06:49 Intake Total 89 ml 550 ml 757 ml 2629 ml Output Total 650 ml 2250 ml 4700 ml Balance 89 ml -100 ml -1493 ml -2071 ml Intake Oral 550 ml 600 ml 1435 ml IV Total 89 ml 157 ml 1194 ml Output Urine Total 650 ml 2250 ml 4700 ml # Bowel Movements 2 2 Exam Gen. patient is lying comfortably in mild respiratory distress HEENT: Head is normocephalic atraumatic, Pupils equal and reactive, extraocular movements intact, Lungs clear to auscultation bilaterally Heart regular rate and rhythm without murmurs gallops or rubs Abdomen soft nontender without hepatosplenomegaly Extremities pulses are present dorsalis pedis posterior tibialis and radial. Skin is warm and dry there are no rashes, Psych alert and oriented to person place and time Neuro cranial nerves II through XII are grossly intact, symmetrical Strength grossly intact of bilateral upper and lower limbs symmetrical 4+/5 symmetrical Sensation grossly symmetrical of bilateral upper and lower limbs symmetrical facies, no dysarthria, no dysphagia Lymph: There is no lymphadenopathy appreciated in the cervical supra infraclavicular regions : no leo IVs and Medications Medications Reviewed: Medications were reviewed in detail Lab and Diagnostics Result Diagram: 01/30/1794501/30/17945 X-Rays, CTs and MRIs PROCEDURE: MRI BRAIN WITHOUT CONTRAST ([id number]) INDICATIONS: acute stroke, syncopal spell TECHNIQUE: Noncontrast axial T1 spin echo, axial T2 fast spin echo, sagittal and axial FLAIR, coronal T2 fast spin echo, axial gradient echo, axial diffusion and ADC through the brain. COMPARISON: [facility], CT, BRAIN (TPA), 01/28/2017, 14:55. [facility], MR, MR BRAIN WO CON, 01/24/2017, 14:39. FINDINGS: Image quality: Excellent. CSF Spaces: Basal cisterns are patent. No extra-axial fluid collections. Ventricles are normal in size and shape. Brain: No intracranial masses or hemorrhage. Stewart/white matter interface is normal. Brainstem appears normal. Diffusion-weighted images demonstrate no acute ischemic insult. No chronic ischemic insults. Normal intravascular flow voids are present. Skull and face: Calvarium has normal marrow signal. Orbits appear normal. Sinuses: Sinuses and mastoids are clear. IMPRESSION: Mild microvascular atherosclerotic change in the deep white matter of each hemisphere, no acute or subacute ischemic injury is found. No trauma seen, no hemorrhage present. Dictated by: Adebayo Hammer M.D. on 01/29/2017 at 13:47 Assessment & Plan 78y f discharged yesterday primarily for TIA managment, returned today after LOC , confusion noted last night at home, possible left lower limb weakness during ER's exam, few new medications had been initiated, w/ ongoing encephalopathy demonstrated by visual hallucination, repetitive answers, impulsive speech, but symmetrical strength/sensation/verbose/active. #. Brief loss of consciousness /unresponsiveness of unclear etiology, resolved Due to UTI versus CO2 narcosis , recurrent TIA and seizure unlikely. -Suspect possible CO2 narcosis following nap. She has significant CO2 retention with serum bicarbonate 42. Last PFT reportedly shows FEV 1 18% , will request evaluation for [facility]ology BiPAP ---normal Echo EF 60-65% / normal lipid/A1c panel ---continue asa/lipitor, OT/PT, repeat MRI negative for acute stroke. -Dr Powell recommends outpatient telemetry to diagnose occult PAF due to possibility of recurrent TIA -patient states her current episode is related to her being very stressed and not getting enough sleep due to taking care of her 89-year-old mom with Lewi body dementia who is not sleeping much recently.Dr Powell is patient's mom neurologist as well.she recommends to provide info for patient's mothers fci placement .spoke with daughter. She states family is working on placement of her grandmother -EEg negative for epileptiform activity # Acute UTI -Urine culture growing > 100,000 E .coli pansensitive -Started ceftriaxone # Acute on chronic hypoxic and hypercapnic respiratory failure due to advanced COPD -Suspect possible CO2 narcosis following nap. She probably has significant CO2 retention with serum bicarbonate 42. Last PFT reportedly shows FEV1 18% . Daughter states patient was recently prescribed some kind of BIPAP by her business data analyst Dr Martinez and part of equipment delivered. not sure if it is Triology. I believe patient requires nocturnal ventilation due to suspected unresponsiveness due to CO2 retention. Will request evaluation for [facility]ology BiPAP.BIPAP seems insufficient due to severity of condition. #. Macrocytic anemia and thrombocytopenia --prior evaluation for pernicious anemia was negative --prior B12 < 300 despite daily bcomplex vitamin intake --anticipate f/u customer program manager, prior reticulocyte consistent w/ underproduction --confounding gastric ulcer --B12 injection given on 01/28 #. Gastric antral ulcer --continue ppi/carafate #. Recurrent Hyperkalemia -unclear etiology ,probably due to CKD3 --hyperkalemic w/ 01/23 admission initially --cortisol normal Chronic issues known prior to admission, present on admission #Chronically elevated ST//tachycardia unrelated to albuterol, extensive w/u by dump worker in past #Antral Ulcer 01/26/17/GERD/ esophageal diverticulum/dysmotility-soft diet, f/u with Dr Velasco outpatient # CKD stage III (baseline Cr.1.2 # Anxiety disorder --continue home diltiazem DVT prophylaxis lovenox Code full Disposition inpt, possible discharge in 2-3 days. PT eval requested [facility] [employer]: Intermittant Pneumatic Toni Landry MD Jan 30, 2017 16:51 DVT prophylaxis hold while diffuse ecchymosis/already on plavix/thromboctyopenic , just scd Code full Disposition inpt, pending workup [employer]: Intermittant Pneumatic Toni Landry MD Jan 30, 2017 16:51
--- NOTE | 2017-01-30 18:41 | NUR ---
Oxygen Pt on 3L humidified O2 via NC sating at 98%. Pt and daughter stated that PCP wanted pt on 3L, unwilling to decrease liters. spoke with pt&daughter. Stated oxygenation goal was 88-94% d/t COPD retainer. Pt now on 1L O2 at rest, sating at 94% and up to 3L with ambulation. Around 1600 today while ambulating from BSC to bed, pt dropped to 88%. Breathing appeared labored. LOTS of reassuring provided, 02 bumped up until pt sated at 96% then turned back down to 1L. Pt now comfortably appearing, resting in bed
[2017-01-30] MEDS ORDERED: 0.9% Sodium Chloride 250 ML ONE (20:50)
[2017-01-31] VITALS (12 sets, daily range): BP systolic 145–180; BP diastolic 60–83; PULSE 73–98; RESP 18–28; O2SAT 91–100
[2017-01-31] MEDS: Sucralfate 1,000 mg Tablet PO SCH ×4 (05:51→21:30)
--- NOTE | 2017-01-31 06:04 | NUR ---
Cpap: Pt's daughter inquiring about Cpap for the night, stating pt is suppose to be getting one for home. Hospitalist notified and order for CPAP obtained. RT here to set up, CPOX in place, with 5LO2 bleed in. Sats mostly 88% to 92%. However pt states she feels better this morning, and thinks the "mask" helped overall. will continue to monitor pt.
[2017-01-31] MEDS: Fluticasone-Salmeterol 500-50 Inhaler INHALATION SCH ×2 (08:01→20:30)
[2017-01-31] MEDS: Pantoprazole 40 mg ER24 Tablet PO SCH ×2 (08:05→16:21)
[2017-01-31] MEDS: Diltiazem CD 120 mg ER24 Capsule PO SCH (08:05)
[2017-01-31] MEDS: Nystatin 100,000 Unit/mL 5 mL Suspension PO SCH ×4 (08:13→22:00)
[2017-01-31 08:36] LABS: BASOPHILS % (AUTO) 0.2 % (0-3); EOSINOPHILS % (AUTO) 2.7 % (0-5); MONOCYTES % (AUTO) 11.8 % (4-12); Mean Corpuscular Hemoglobin 29.7 pg (27.0-35.0); Mean Corpuscular Volume 108.5 fL (81-100); NEUTROPHILS % (AUTO) 73.4 % (40-74); Platelet Count 119 bil/L (150-400)
[2017-01-31 08:57] LABS: Magnesium 2.1 mg/dL (1.6-2.6); Phosphorus 3.5 mg/dL (2.5-4.9)
[2017-01-31] MEDS: cefTRIAXone Inj 1,000 MG in Dextrose 5% Minibag Plus 50 ML IV SCH (12:08)
[2017-01-31] MEDS ORDERED: Furosemide 10 mg/mL 2 mL Inj IVPUSH ONE (12:35)
[2017-01-31] MEDS ORDERED: IRON SUCROSE COMPLEX 200 MG IV SCH (14:05)
--- NOTE | 2017-01-31 16:58 | PCM.PNMED ---
Subjective Date of Service Jan 31, 2017 Subjective Patient used BiPAP overnight and feels better today. Awaiting Triology . Dyspnea slowly improving. Gets tachycardic with physical therapy and slight exertion Exam Vital Signs Vital Sign - Last Date Time Temp Pulse Resp B/P Pulse Ox O2 Delivery O2 Flow Rate FiO2 01/31/17 13:48 28 94 Nasal Cannula 2.00 01/31/17 13:10 168/72 01/31/17 11:11 86 01/31/17 10:07 36.6 Intake and Output 01/30/17 01/30/17 01/31/17 Cumulative From/Thru 15:00 23:00 07:00 01/28/17 14:56 - 01/31/17 06:29 Intake Total 972 ml 1218 ml 4819 ml Output Total 1125 ml 2050 ml 7875 ml Balance -153 ml -832 ml -3056 ml Intake Oral 800 ml 1218 ml 3453 ml IV Total 172 ml 1366 ml Output Urine Total 1125 ml 2050 ml 7875 ml # Bowel Movements 0 2 Exam Gen. patient is lying comfortably in mild respiratory distress HEENT: Head is normocephalic atraumatic, Pupils equal and reactive, extraocular movements intact, Lungs clear to auscultation bilaterally Heart regular rate and rhythm without murmurs gallops or rubs Abdomen soft nontender without hepatosplenomegaly Extremities pulses are present dorsalis pedis posterior tibialis and radial. Skin is warm and dry there are no rashes, Psych alert and oriented to person place and time Neuro cranial nerves II through XII are grossly intact, symmetrical Strength grossly intact of bilateral upper and lower limbs symmetrical 4+/5 symmetrical Sensation grossly symmetrical of bilateral upper and lower limbs symmetrical facies, no dysarthria, no dysphagia Lymph: There is no lymphadenopathy appreciated in the cervical supra infraclavicular regions : no leo IVs and Medications Medications Reviewed: Medications were reviewed in detail Lab and Diagnostics Result Diagram: 01/31/1781901/31/17819 X-Rays, CTs and MRIs PROCEDURE: MRI BRAIN WITHOUT CONTRAST ([id number]) INDICATIONS: acute stroke, syncopal spell TECHNIQUE: Noncontrast axial T1 spin echo, axial T2 fast spin echo, sagittal and axial FLAIR, coronal T2 fast spin echo, axial gradient echo, axial diffusion and ADC through the brain. COMPARISON: [facility], CT, BRAIN (TPA), 01/28/2017, 14:55. [facility], MR, MR BRAIN WO CON, 01/24/2017, 14:39. FINDINGS: Image quality: Excellent. CSF Spaces: Basal cisterns are patent. No extra-axial fluid collections. Ventricles are normal in size and shape. Brain: No intracranial masses or hemorrhage. Stewart/white matter interface is normal. Brainstem appears normal. Diffusion-weighted images demonstrate no acute ischemic insult. No chronic ischemic insults. Normal intravascular flow voids are present. Skull and face: Calvarium has normal marrow signal. Orbits appear normal. Sinuses: Sinuses and mastoids are clear. IMPRESSION: Mild microvascular atherosclerotic change in the deep white matter of each hemisphere, no acute or subacute ischemic injury is found. No trauma seen, no hemorrhage present. Dictated by: Adebayo Hammer M.D. on 01/29/2017 at 13:47 Assessment & Plan 78y f discharged yesterday primarily for TIA managment, returned today after LOC , confusion noted last night at home, possible left lower limb weakness during ER's exam, few new medications had been initiated, w/ ongoing encephalopathy demonstrated by visual hallucination, repetitive answers, impulsive speech, but symmetrical strength/sensation/verbose/active. #. Brief loss of consciousness /unresponsiveness of unclear etiology, resolved Due to UTI versus CO2 narcosis , recurrent TIA and seizure unlikely. -Suspect possible CO2 narcosis following nap. She has significant CO2 retention with serum bicarbonate 42. Last PFT reportedly shows FEV 1 18% , requested evaluation for [facility] BiPAP. Patient used BiPAP overnight and feels better today ---normal Echo EF 60-65% / normal lipid/A1c panel ---continue asa/lipitor, OT/PT, repeat MRI negative for acute stroke. -Dr Powell recommends outpatient telemetry to diagnose occult PAF due to possibility of recurrent TIA -patient states her current episode is related to her being very stressed and not getting enough sleep due to taking care of her 89-year-old mom with Lewi body dementia who is not sleeping much recently.Dr Powell is patient's mom neurologist as well.she recommends to provide info for patient's mothers terminal operations manager placement .spoke with daughter. She states family is working on placement of her grandmother -EEg negative for epileptiform activity # Acute UTI -Urine culture growing > 100,000 E .coli pansensitive -Started ceftriaxone # Acute on chronic hypoxic and hypercapnic respiratory failure due to advanced COPD -Suspect possible CO2 narcosis following nap. She probably has significant CO2 retention with serum bicarbonate 42. Last PFT reportedly shows FEV1 18% . Daughter states patient was recently prescribed some kind of BIPAP by her wire preparation worker Dr Martinez and part of equipment delivered. not sure if it is [facility]. I believe patient requires nocturnal ventilation due to suspected unresponsiveness due to CO2 retention. Will request evaluation for [facility] BiPAP.BIPAP seems insufficient due to severity of condition. #. Macrocytic anemia and thrombocytopenia --prior evaluation for pernicious anemia was negative --prior B12 < 300 despite daily bcomplex vitamin intake --anticipate f/u ceo & founder, prior reticulocyte consistent w/ underproduction --confounding gastric ulcer --B12 injection given on 01/28 #. Gastric antral ulcer --continue ppi/carafate #. Recurrent Hyperkalemia -unclear etiology ,probably due to CKD3 --hyperkalemic w/ 01/23 admission initially --cortisol normal Chronic issues known prior to admission, present on admission #Chronically elevated ST//tachycardia unrelated to albuterol, extensive w/u by systems librarian in past #Antral Ulcer 01/26/17/GERD/ esophageal diverticulum/dysmotility-soft diet, f/u with Dr Velasco outpatient # CKD stage III (baseline Cr.1.2 # Anxiety disorder --continue home diltiazem DVT prophylaxis lovenox Code full Disposition inpt, possible discharge in 2-3 days. PT eval requested [employer] Devices: Venous Foot Pump Toni Saxena MD Jan 31, 2017 16:58
--- NOTE | 2017-01-31 17:50 | NUR ---
AYLEEN - Readiness for Discharge Data: Pt is on day 3 of hospitalization for TIA, Altered mental status per H&P. Per morning rounds pt is possible to discharge tomorrow. Pt will resume HH services for RN/PT/OT and trilogy. PT re-assessed and continues to recommend home with HH. AYLEEN contacted pt's dtr Alayna [phone] to update her and she stated that they will not be able to accommodate her mom at home tomorrow and if pt is discharged tomorrow she will appeal the discharge. SW agreed to update her tomorrow if the MD plans to discharge. Christiane from [facility] RT requested SW call her at [phone] on day of discharge. Pt to discharge home via family with [facility] RN/PT and [facility]. [facility] given access. SW will continue to follow for needs. Assessment: Pt who would benefit from HH and non invasive home ventilator. Plan: Pt likely to discharge home tomorrow via family with [facility] RN/PT and non invasive home ventilator. AYLEEN will contact pt's dtr Alayna on day of discharge. [facility]. SW will continue to follow. KATARINA White
--- NOTE | 2017-01-31 18:24 | NUR ---
PSVT/Oxygen Call recd from tele short while ago reporting 5 sec of HR up to 151. Pt asymptomatic. CT chest ordered. Pt on oxygen, desats quickly into mid 80s on RA. At rest, maintains at 94% on 1L via NC.
[2017-01-31] MEDS: BusPIRone 15 mg Dividose Tablet PO SCH (20:30)
[2017-01-31] MEDS ORDERED: Fluticasone-Salmeterol 500-50 Inhaler INHALATION SCH (20:30)
--- NOTE | 2017-01-31 20:32 | ABG ---
DateTimeAnalyzed 20:29:00 -_ pH ____7.204 - 7.350 7.450 pCO2 124 -mmHg 35.0 45.0 pO2 ___55.3__ -mmHg 69.0 116 HCO3- ___47.1__ -mmol/L 22.0 26.0 ABE ___15.9__ -mmol/L -2.0 2.0 tHb ____9.7__ -g/dL O2Hb ___86.1__ -% COHb ____1.8__ -% MetHb ____1.4__ -% sO2 ___88.9__ -% FIO2 ___24.0__ -% Drawn By MK - Liter_Flow ____1.0__ -L/min Oxygen Device 1 __CANNULA - Notified Whom terrence vail - B 755 -mmHg tO2 ___11.8__ -Vol% Mika test _Positive -
--- NOTE | 2017-01-31 21:00 | NUR ---
Pt transferred from [facility] after becoming hypoxic during PICC line placement. Earlier pt had an episode of "passing out" in which abg's were obtained and they did not look good. Pt appeared acidotic with PH of 7.20 and CO2 was 124. Pt brought down to [facility] and placed on bipap at 30%, 16/8 with rate of 16. Pt is talking and answering questions appropriately just drowsy. HR is sinus in the 80's with chronic ST elevations. PICC line to left upper arm. Heparin gtt started at initial rate of 18 units/kg and bolus of 3850 units given. Baseline PTT of 35.0. Vitals stable at this time.
[2017-01-31] MEDS ORDERED: Heparin 25K Unit/500mL 0.45 NS 25,000 UNIT in IV Premix 1 EACH IV SCH (21:05)
[2017-01-31] MEDS ORDERED: Heparin 5,000 Unit/mL Inj IVPUSH ONE (21:05)
--- NOTE | 2017-01-31 21:39 | DRSVH ---
PROCEDURE: X-RAY PICC LINE PLACEMENT BY NURSE ([id number]) INDICATIONS: 71 year-old female with PICC placement for venous access. COMPARISON: None. FINDINGS: PICC was placed by the intravenous therapy team from the left side. Fluoroscopic spot bob m demonstrates tip of PICC in the lower superior vena cava. IMPRESSION: Tip of PICC lies within the lower superior vena cava. Dictated by: Fuentes Conte M.D. on 01/31/2017 at 21:32 Approved by: Fuentes Conte M.D. on 01/31/2017 at 21:32
[2017-01-31] MEDS ORDERED: Sodium Chloride LOK Flush 10 mL Syringe IVFLUSH PRN ×2 (21:45)
--- NOTE | 2017-01-31 22:29 | NUR ---
Transfer Pt witnessed by Daughter and Viemed RT to have "passed out", apparently she was awake talking and then "just fell asleep". Sternal Rub to wake pt up, she was able to wake up at this time, alert to herself and place. Hospitalist paged by this RN and order for ABGs obtained. IV therapy here to room to start PICC line, per previous order. ABG's resulted and called to hospitalist, order to transfer pt to [facility], after PICC placement. RN outside of room, COORDINATOR VOLUNTEER SERVICES called this RN to room due to pt's color. pt dusky, lips blue. pt with pulse, 90's. CELEBRITY MANAGER called O2 placed via oxymask 15LO2, CPOX in place with no reading. bag mask used until sats 90%, then O2 via oxymask. At this time pt alert, explained to pt about transfer, pt asked us to bring her belongings and phone with her. pt transferred via radha to room 3021, face to face report given to Clara LYONS.
[2017-02-01] VITALS (14 sets, daily range): BP systolic 110–174; BP diastolic 61–89; PULSE 85–97; RESP 18–27; O2SAT 89–98
--- NOTE | 2017-02-01 01:00 | ABG ---
DateTimeAnalyzed 00:55:00 -_ pH ____7.324 - 7.350 7.450 pCO2 ___95.7__ -mmHg 35.0 45.0 pO2 ___53.9__ -mmHg 69.0 116 HCO3- ___48.4__ -mmol/L 22.0 26.0 ABE ___19.6__ -mmol/L -2.0 2.0 tHb ____8.8__ -g/dL O2Hb ___88.3__ -% COHb ____2.1__ -% MetHb ____1.3__ -% sO2 ___91.4__ -% FIO2 ___30.0__ -% CPAP ___16.0__ -cmH2O PEEP ____8.0__ -cmH2O Set_RR ___16.0__ -b/min Drawn By MK - Oxygen Device 1 ____BIPAP - Notified Whom gregoria dew - B 757 -mmHg tO2 ___10.9__ -Vol% Mika test _Positive -
--- NOTE | 2017-02-01 05:41 | NUR ---
Pt tolerating bipap well. abg's improving. Pt is more alert and oriented. Supportive family at bedside.
[2017-02-01] MEDS: Sucralfate 1,000 mg Tablet PO SCH ×4 (06:30→22:04)
[2017-02-01] MEDS ORDERED: Diltiazem CD 240 mg ER24 Capsule PO SCH (08:47)
[2017-02-01] MEDS: Ascorbic Acid 500 mg Tablet PO SCH (09:37)
[2017-02-01] MEDS: BusPIRone 15 mg Dividose Tablet PO SCH (09:37)
[2017-02-01] MEDS: Fluticasone-Salmeterol 500-50 Inhaler INHALATION SCH ×2 (09:37→20:42)
[2017-02-01] MEDS: Pantoprazole 40 mg ER24 Tablet PO SCH ×2 (09:39→17:00)
[2017-02-01] MEDS: Nystatin 100,000 Unit/mL 5 mL Suspension PO SCH ×4 (09:39→20:52)
[2017-02-01] MEDS: cefTRIAXone Inj 1,000 MG in Dextrose 5% Minibag Plus 50 ML IV SCH (11:51)
--- NOTE | 2017-02-01 13:10 | PCM.PNMED ---
Subjective Date of Service Feb 01, 2017 Subjective Overnight: Patient was transferred to [facility] after becoming hypoxic during PICC line placement. 4-2 of "passed out" and the ABGs show CO2 of 124 pH is 7.2. Patient was placed on BiPAP at 30% overnight rate is 16 and was mentating appropriately. Heparin drip started overnight secondary to suspected PE. Telemetry showed heart rate sinus rhythm in the 80s to 100s - no ectopy with ST elevation which is chronic in nature. Today: Patient awake and alert sitting up in bed with BiPAP place. Daughter at bedside. States that her breathing feels better with the BiPAP mask, she is able to take the mask off and oxygenate well with nasal cannula for periods of time. She will do unit in place in the room though patient has not been seen by respiratory therapy at time of interview. States she has some shortness of breath though states no chest pain. Daughter who is present at bedside (also works as a nurse in [place]) states that her mentation is off of her baseline. Patient awake and alert during interview A&O 4 and able to answer all questions appropriately. Exam Vital Signs Vital Sign - Last Date Time Temp Pulse Resp B/P Pulse Ox O2 Delivery O2 Flow Rate FiO2 02/01/17 08:58 89 27 93 35 02/01/17 07:50 CPAP/BIPAP 02/01/17 07:16 36.7 152/69 01/31/17 18:24 2.00 Intake and Output 01/31/17 01/31/17 02/01/17 Cumulative From/Thru 15:00 23:00 07:00 01/28/17 14:56 - 02/01/17 05:19 Intake Total 1166 ml 0 ml 5985 ml Output Total 1450 ml 700 ml 26888 ml Balance -284 ml -700 ml -4040 ml Intake Oral 780 ml 0 ml 4233 ml IV Total 386 ml 1752 ml Output Urine Total 1450 ml 700 ml 48265 ml # Bowel Movements 1 0 3 Exam General: Awake and alert sitting up in bed with BiPAP mask in place, in no acute distress, appropriately interactive HEENT: Normocephalic, atraumatic. External ears without defect. Pupils equal, round, and reactive to light and accommodation. BiPAP mask in place Neck: Supple with full range of motion. No jugular venous distension. Cardiovascular: Regular rate and rhythm with no murmurs - difficult to appreciate secondary to BiPAP Pulmonary: Expiratory wheezes bilaterally upper anterior and posterior lung sung. Decreased air movement lower lung sung bilaterally - difficult to appreciate secondary to BiPAP Abdomen: Bowel tones present. Soft, nontender, nondistended. Extremities: No clubbing, cyanosis or edema Skin: Normal temperature, turgor, and texture Neurological: Cranial nerves grossly intact. Psychiatric: Normal mood and affect. Alert and oriented to person, place, and time. IVs and Medications Medications Reviewed: Medications were reviewed in detail Lab and Diagnostics Result Diagram: 02/01/17 0515 01/31/17 0820 X-Rays, CTs and MRIs . CT BRAIN (TPA) IMPRESSION: 1. No acute intracranial disease process. 2. Findings telephoned to Dr. Johny Green on 01/28/2017 at 1503 hrs. This study fulfills neurological imaging criteria for inclusion or exclusion of acute stroke therapies based on available published neurological guidelines. Dictated by: Patti Thomas MD, PhD on 01/28/2017 at 15:01 MRI BRAIN WITHOUT CONTRAST IMPRESSION: Mild microvascular atherosclerotic change in the deep white matter of each hemisphere, no acute or subacute ischemic injury is found. No trauma seen, no hemorrhage present. Dictated by: Adebayo Hammer M.D. on 01/29/2017 at 13:47 X-RAY PICC LINE PLACEMENT BY NURSE IMPRESSION: Tip of PICC lies within the lower superior vena cava. Dictated by: Fuentes Conte M.D. on 01/31/2017 at 21:32 Assessment & Plan 78y/o female with past medical history of T, COPD, HTN, CKD and anxiety admitted for poss TIA. Brief loss of consciousness /unresponsiveness of unclear etiology, resolved -Due to UTI versus CO2 narcosis , recurrent TIA and seizure unlikely. -Suspect possible CO2 narcosis following nap. She has significant CO2 retention with serum bicarbonate 42. Last PFT reportedly shows FEV 1 18% , requested evaluation for Triology BiPAP. Patient used BiPAP overnight and feels better today ---normal Echo EF 60-65% / normal lipid/A1c panel ---continue asa/lipitor, OT/PT, repeat MRI negative for acute stroke. -Dr Bliss recommends outpatient telemetry to diagnose occult PAF due to possibility of recurrent TIA -patient states her current episode is related to her being very stressed and not getting enough sleep due to taking care of her 89-year-old mom with Lewi body dementia who is not sleeping much recently.Dr Powell is patient's mom neurologist as well.she recommends to provide info for patient's mothers terminal supervisor placement .spoke with daughter. She states family is working on placement of her grandmother -EEg negative for epileptiform activity Acute UTI. Present on admission. Acute. Ongoing -Urine culture growing > 100,000 E .coli pansensitive -Started ceftriaxone Acute on chronic hypoxic and hypercapnic respiratory failure due to advanced COPD -Suspect possible CO2 narcosis following nap. She probably has significant CO2 retention with serum bicarbonate 42. Last PFT reportedly shows FEV1 18% . Daughter states patient was recently prescribed some kind of BIPAP by her mac developer Dr Martinez and part of equipment delivered. not sure if it is Triology. I believe patient requires nocturnal ventilation due to suspected unresponsiveness due to CO2 retention. Will request evaluation for Triology BiPAP.BIPAP seems insufficient due to severity of condition. - Currently utilizing BiPAP with improvement of ABG's - Triology representatives following Pt - plan to trial equipment tomorrow Macrocytic anemia and thrombocytopenia --prior evaluation for pernicious anemia was negative --prior B12 < 300 despite daily bcomplex vitamin intake --anticipate f/u hris analyst, prior reticulocyte consistent w/ underproduction --confounding gastric ulcer --B12 injection given on 01/28 -Continued Venofer COPD. Present admission. Ongoing -Continue home albuterol pro-air -Continue home nebulizer solution -Continued Advair Hyperlipidemia. Present admission. Chronic. -Continued home atorvastatin 10 mg by mouth at bedtime Hypertension. Present admission. Chronic. Ongoing -Held home lisinopril 10 mg daily Atrial fibrillation. Chronic. Present admission. Ongoing -Continue home diltiazem ER 240 mg by mouth daily -Continued home propanolol 20 mg by mouth 3 times a day -Held clopidogrel 75 mg daily Gastric antral ulcer --continue ppi/carafate Recurrent Hyperkalemia -unclear etiology ,probably due to CKD3 --hyperkalemic w/ 01/23 admission initially --cortisol normal Chronically elevated ST//tachycardia unrelated to albuterol, extensive w/u by aviation program manager in past Antral Ulcer 01/26/17/GERD/ esophageal diverticulum/dysmotility-soft diet, f/u with Dr Velasco outpatient CKD stage III (baseline Cr.1.2) Anxiety disorder --continue home diltiazem Hypertension - Continue home DVT prophylaxis lovenox Code full Disposition inpt, possible discharge in 2-3 days. PT eval requested Pain Evaluation: Adequate Pain Control VTE Mechanical Devices: Venous Foot Pump Resuscitation Status: CPR: Attempt Resuscitation Attending Statement The patient was seen and examined together with Dr. Ortiz on 02/01/2017 and I agree with the history, exam and plan as outlined in the note above. . MAX ORTIZ DO Feb 01, 2017 13:10 Suresh Browne MD Feb 03, 2017 08:31
[2017-02-01] MEDS: LORazepam 0.5 mg Tablet PO SCH ×2 (13:40→20:42)
--- NOTE | 2017-02-01 14:31 | DRSVH ---
PROCEDURE: CT ANGIO CHEST PULMONARY EMBOLISM ([id number]) INDICATIONS: OXYGEN DESATURATION, SINUS TACHYCARDIA TECHNIQUE: After the administration of intravenous contrast, 2 mm thick sections acquired from the pulmonary api eamon to the posterior costophrenic angles. 3-dimensional maximum intensity projection (MIP) coronal a nd sagittal reformats were then acquired through the thorax. For radiation dose reduction, the follo wing was used: automated exposure control, adjustment of mA and/or kV according to patient size. COMPARISON: [facility], CT, CT CHEST WO CON, 11/02/2015, 14:14. FINDINGS: Image quality: Excellent. Pulmonary arteries: Pulmonary arteries are normal in size, and demonstrate no intraluminal filling d efects to suggest central pulmonary embolism. Lungs and pleura: Extensive centrilobular emphysematous changes of the lungs are present. Small bila teral pleural effusions are evident. There is mild airspace disease within the posterior bilateral l ower lobes near the level of the pleural effusions, which most likely represents atelectasis. Superi mposed pneumonia is difficult to exclude. A similar appearance is noted within the lingula and on th e upper aspect of the right lower lobe along the superior margin of the major fissure. The wall thic kening is noted within the bilateral lower lobes. There is no lung mass. There is a 9 mm nodule evident on the periphery of the lingula, which may be slightly increased since the previous exam, measuring approximately 6 mm on the prior study. Numerou s additional scattered pulmonary nodules are identified within the lung bases, which may be related t o treatment but nodularity, rather than true nodules. Mediastinum: Heart size is normal, without pericardial effusion. No mediastinal or hilar adenopathy . Thoracic aorta is normal in caliber and enhancement. There is a small hiatal hernia. Bones and chest wall: No suspicious bony lesions. Ribs and thoracic spine appear intact throughout. There may be inferior thyroid nodules. No axillary or supraclavicular adenopathy. The density of the breast tissue is more than expected for the patient's age. Abdomen: The imaged upper abdominal organs demonstrates multiple left renal cysts, not adequately chris racterized. The adrenal glands are slightly prominent in size. IMPRESSION: 1. No pulmonary emboli. 2. Small bilateral effusions with associated atelectasis. 3. Bronchial wall thickening and areas of tree in bud nodularity are best appreciated within the pos terior bilateral lower lobes and the lingula, suspicious for pulmonary infection. Please correlate c linically. 4. Increasing lingular nodule with additional lower lobe subcentimeter nodules present. A followup CT of the chest in 3-6 months is recommended. 5. Thyroid nodules. 6. Small hiatal hernia. Dictated by: Dudley Justice M.D. on 02/01/2017 at 13:22 Approved by: Dudley Justice M.D. on 02/01/2017 at 13:29
--- NOTE | 2017-02-01 15:07 | NUR ---
Social Work: Readiness for Discharge D: Pt discussed in am rounds. Pt was transferred to [facility] overnight. Pt is not medically stable for discharge but will require Trilogy at time of discharge. CLAY TEMPERER spoke with Shelli Fu with [facility]. They are following the pt. She has been approved for a non-invasive trilogy and have been working with the pt to get this fitted during her admission. They are aware pt may discharge in the next several days. CLAY TEMPERER reviewed pt's charge. Pt was able to ambulate 150 feet and was cleared for discharge home with home health. Pt is open for services with [facility] for RN, PT. A: Pt who lives with her mother and is I at baseline. P: Anticipate pt to discharge home with [facility] for RN, PT and non-invasive Trilogy; Pt's daughter will transport when ready. CLAY TEMPERER to continue to follow. KATARINA Hernandez
[2017-02-01] MEDS: Heparin 5,000 Unit/mL Inj SUBQ SCH (17:00)
--- NOTE | 2017-02-01 18:14 | NUR ---
Mentation/Heparin gtt Pt AAOx2 today, alert to self, place and year; conversing with this RN and daughter throughout the day. On BiPAP for most of the day, off for meals/meds and to go to CT scan. CT ruled out PE, heparin gtt d/c'd. Pt now on SQ heparin.
[2017-02-02] VITALS (14 sets, daily range): BP systolic 123–170; BP diastolic 58–77; PULSE 83–101; RESP 18–29; O2SAT 85–98
[2017-02-02] MEDS: Heparin 5,000 Unit/mL Inj SUBQ SCH ×4 (01:04→23:27)
--- NOTE | 2017-02-02 03:25 | ABG ---
DateTimeAnalyzed 03:21:00 -_ pH ____7.263 - 7.350 7.450 pCO2 109 -mmHg 35.0 45.0 pO2 ___88.2__ -mmHg 69.0 116 HCO3- ___47.7__ -mmol/L 22.0 26.0 ABE ___17.8__ -mmol/L -2.0 2.0 tHb ____9.3__ -g/dL O2Hb ___93.9__ -% COHb ____1.7__ -% MetHb ____1.1__ -% sO2 ___96.6__ -% FIO2 ___40.0__ -% CPAP ___16.0__ -cmH2O PEEP ____8.0__ -cmH2O Set_RR ___16.0__ -b/min Drawn By MK - Oxygen Device 1 ____BIPAP - Notified By MK - Notified Whom jacklynn C - B 763 -mmHg tO2 ___12.4__ -Vol% Mika test _Positive -
--- NOTE | 2017-02-02 04:57 | NUR ---
Mentation Pt sleeping but easily arousable. She is oriented x3 but forgetful at times. Pt calls for needs and wants. 02sat in low to mid 90s on Bipap at 40% FI02 at this time. Desaturation in 82-84% on Bipap at 35% Fi02 noted last night. Increased to 40% Fi02 per RT. Pt noted to desat to low 80s while on 2L NC last night. Pt is 1 person assist to bsc with dyspnea noted. Telemetry SR in 80s.
[2017-02-02] MEDS: Sucralfate 1,000 mg Tablet PO SCH ×4 (05:53→20:47)
[2017-02-02 06:13] LABS: BASOPHILS % (AUTO) 0.3 % (0-3); EOSINOPHILS % (AUTO) 4.1 % (0-5); MONOCYTES % (AUTO) 11.9 % (4-12); Mean Corpuscular Hemoglobin 29.1 pg (27.0-35.0); Mean Corpuscular Volume 106.2 fL (81-100); NEUTROPHILS % (AUTO) 68.4 % (40-74); Platelet Count 119 bil/L (150-400)
[2017-02-02 06:33] LABS: Magnesium 2.5 mg/dL (1.6-2.6)
--- NOTE | 2017-02-02 07:43 | NUR ---
Took Pt off BiPaP and put on 3LNC, sat 93%, HR 92, BS very diminished.
[2017-02-02] MEDS: Fluticasone-Salmeterol 500-50 Inhaler INHALATION SCH ×2 (08:12→20:47)
[2017-02-02] MEDS: Pantoprazole 40 mg ER24 Tablet PO SCH ×2 (08:20→17:25)
[2017-02-02] MEDS: Diltiazem CD 120 mg ER24 Capsule PO SCH (08:20)
[2017-02-02] MEDS: Nystatin 100,000 Unit/mL 5 mL Suspension PO SCH ×4 (08:20→23:28)
[2017-02-02] MEDS: LORazepam 0.5 mg Tablet PO SCH ×3 (08:21→20:47)
[2017-02-02] MEDS: Ascorbic Acid 500 mg Tablet PO SCH (08:30)
--- NOTE | 2017-02-02 10:56 | ABG ---
DateTimeAnalyzed 10:49:00 -_ pH ____7.249 - 7.350 7.450 pCO2 116 -mmHg 35.0 45.0 pO2 ___71.8__ -mmHg 69.0 116 HCO3- ___48.9__ -mmol/L 22.0 26.0 ABE ___18.9__ -mmol/L -2.0 2.0 tHb ____8.8__ -g/dL O2Hb ___91.7__ -% COHb ____1.7__ -% MetHb ____1.2__ -% sO2 ___94.4__ -% FIO2 ___21.0__ -% Drawn By BTL - Date/Time Notified____ 10:56:00 -_ Liter_Flow ____3.0__ -L/min Oxygen Device 1 __CANNULA - Notified By btl - Notified Whom ___Dr. Angel - B 766 -mmHg tO2 ___11.4__ -Vol% Mika test _Positive -
[2017-02-02] MEDS: cefTRIAXone Inj 1,000 MG in Dextrose 5% Minibag Plus 50 ML IV SCH (11:36)
[2017-02-02] MEDS: Albuterol 2.5 mg/3 mL Inhalation Solution NEB PRN ×2 (12:50→21:31)
--- NOTE | 2017-02-02 15:39 | NUR ---
Respiratory Pt on home trilogy trial. Start at 1515. mode S/T 20/10 RR 18 with 10 L bleed in. Hr between 88 and 92. No significant change in HR, right about 91. Pt has rapid desat with removal of mask. Leak variable with Pt talking.
[2017-02-03] VITALS (14 sets, daily range): BP systolic 131–154; BP diastolic 56–69; PULSE 89–102; RESP 15–24; O2SAT 88–100
[2017-02-03 04:56] LABS: BASOPHILS % (AUTO) 0.3 % (0-3); MONOCYTES % (AUTO) 13.9 % (4-12); Mean Corpuscular Hemoglobin 29.8 pg (27.0-35.0); Mean Corpuscular Volume 108.4 fL (81-100); Platelet Count 118 bil/L (150-400)
[2017-02-03] MEDS: Sucralfate 1,000 mg Tablet PO SCH ×4 (05:39→21:34)
[2017-02-03 05:41] LABS: Magnesium 2.2 mg/dL (1.6-2.6)
--- NOTE | 2017-02-03 06:02 | NUR ---
Respiratory: Pt. wearing trilogy machine for very large majority of shift. Oxygen bleed in to trilogy machine titrated during shift in attempt to keep SpO2 89-92%. Difficult to titrate oxygen levels, as pt. often self adjusts mask occasionally causing air leaks. Currently, SpO2: 93-95% on trilogy with 6L bleed in. Also difficult to titrate trilogy as pt.'s oxygen demands differ from sleeping to when awake. Will continue to adjust and titrate oxygen to keep SpO2 89-92%. Pt. denies SOB at rest throughout shift. No episodes of respiratory distress observed during shift. Addendum: 02/03/17 at 0640 by SHELTON BALDERAS RN SpO2: 90-91% on Trilogy with 6L bleed in.
[2017-02-03] MEDS: Fluticasone-Salmeterol 500-50 Inhaler INHALATION SCH ×2 (08:12→21:34)
[2017-02-03] MEDS: Ascorbic Acid 500 mg Tablet PO SCH (08:13)
[2017-02-03] MEDS: LORazepam 0.5 mg Tablet PO SCH ×3 (08:13→21:34)
[2017-02-03] MEDS: Pantoprazole 40 mg ER24 Tablet PO SCH ×2 (08:13→17:20)
[2017-02-03] MEDS: Diltiazem CD 120 mg ER24 Capsule PO SCH (08:13)
[2017-02-03] MEDS: Heparin 5,000 Unit/mL Inj SUBQ SCH ×3 (08:13→23:52)
[2017-02-03] MEDS: Nystatin 100,000 Unit/mL 5 mL Suspension PO SCH ×4 (08:21→21:34)
--- NOTE | 2017-02-03 09:10 | NUR ---
SANDRA signed KATARINA Concepcion
[2017-02-03] MEDS: cefTRIAXone Inj 1,000 MG in Dextrose 5% Minibag Plus 50 ML IV SCH (13:16)
--- NOTE | 2017-02-03 13:26 | NUR ---
Evaluation completed. Please go to "Notes" then click on "Assessments and Notes" (bottom left corner of screen). Then select appropriate discipline tab on top of screen.
--- NOTE | 2017-02-03 14:28 | PCM.PNMED ---
Subjective Date of Service Feb 02, 2017 Subjective Overnight: Patient slept well but was easily arousable. She is alert and oriented 3 but easily forgetful. Use BiPAP with success throughout the night. Today: Patient awake and alert sitting up in bed with daughter and grandson at bedside. No specific complaints of shortness of breath or pain though is anxious about discharge plan. Exam Vital Signs Vital Sign - Last Date Time Temp Pulse Resp B/P Pulse Ox O2 Delivery O2 Flow Rate FiO2 02/03/17 08:23 103 94 02/03/17 08:02 36.9 16 145/60 Nasal Cannula 3.00 02/02/17 11:16 35 Intake and Output 02/02/17 02/02/17 02/03/17 Cumulative From/Thru 15:00 23:00 07:00 01/28/17 14:56 - 02/03/17 06:38 Intake Total 1672 ml 888 ml 32435 ml Output Total 1350 ml 1250 ml 82013 ml Balance 322 ml -362 ml -5610 ml Intake Oral 1672 ml 888 ml 8496 ml IV Total 2419 ml Output Urine Total 1350 ml 1250 ml 85251 ml # Bowel Movements 3 Exam General: Awake and alert sitting up in bed with nasal cannula in place, in no acute distress, appropriately interactive HEENT: Normocephalic, atraumatic. External ears without defect. Pupils equal, round, and reactive to light and accommodation. Neck: Supple with full range of motion. No jugular venous distension. Cardiovascular: Regular rate with irregular rhythm with no murmurs Pulmonary: Expiratory wheezes bilaterally upper anterior and posterior lung sung. Abdomen: Bowel tones present. Soft, nontender, nondistended. Extremities: No clubbing, cyanosis or edema Skin: Normal temperature, turgor, and texture Neurological: Cranial nerves grossly intact. Psychiatric: Normal mood and affect, though anxious IVs and Medications Medications Reviewed: Medications were reviewed in detail Lab and Diagnostics Result Diagram: 02/03/1744402/03/17444 X-Rays, CTs and MRIs . CT BRAIN (TPA) IMPRESSION: 1. No acute intracranial disease process. 2. Findings telephoned to Dr. Johny Green on 01/28/2017 at 1503 hrs. This study fulfills neurological imaging criteria for inclusion or exclusion of acute stroke therapies based on available published neurological guidelines. Dictated by: Patti Thomas MD, PhD on 01/28/2017 at 15:01 MRI BRAIN WITHOUT CONTRAST IMPRESSION: Mild microvascular atherosclerotic change in the deep white matter of each hemisphere, no acute or subacute ischemic injury is found. No trauma seen, no hemorrhage present. Dictated by: Adebayo Hammer M.D. on 01/29/2017 at 13:47 X-RAY PICC LINE PLACEMENT BY NURSE IMPRESSION: Tip of PICC lies within the lower superior vena cava. Dictated by: Fuentes Conte M.D. on 01/31/2017 at 21:32 CT ANGIO CHEST PULMONARY EMBOLISM IMPRESSION: 1. No pulmonary emboli. 2. Small bilateral effusions with associated atelectasis. 3. Bronchial wall thickening and areas of tree in bud nodularity are best appreciated within the posterior bilateral lower lobes and the lingula, suspicious for pulmonary infection. Please correlate clinically. 4. Increasing lingular nodule with additional lower lobe subcentimeter nodules present. A followup CT of the chest in 3-6 months is recommended. 5. Thyroid nodules. 6. Small hiatal hernia. Dictated by: Dudley Justice M.D. on 02/01/2017 at 13:22 Assessment & Plan 78y/o female with past medical history of T, COPD, HTN, CKD and anxiety admitted for poss TIA. Hospital day 6 1. Encephalopathy. Present on admission. Acute on chronic. Improved Most likely due to CO2 narcosis following nap. She has significant CO2 retention with serum bicarbonate 42. Last PFT reportedly shows FEV 1 18% - Neurology following, recommendations are appreciated - EEg negative for epileptiform activity - Patient has used BiPAP and Trilogy with resolution of CO2 narcosis symptoms and improvement in ABGs and ventilation status 2. Acute UTI. Present on admission. Acute. Ongoing -Urine culture growing > 100,000 E .coli pansensitive -Continue ceftriaxone 3. Acute on chronic hypoxic and hypercapnic respiratory failure due to advanced COPD. Present on admission. Ongoing -Suspect possible CO2 narcosis following nap. - Currently utilizing BiPAP/Trilogy system with improvement of ABG's 4. Macrocytic anemia and thrombocytopenia. Present on admission. Ongoing --prior evaluation for pernicious anemia was negative --prior B12 < 300 despite daily bcomplex vitamin intake --anticipate f/u complaint investigations officer, prior reticulocyte consistent w/ underproduction --confounding gastric ulcer --B12 injection given on 01/28 -Continued Venofer 5. COPD. Present admission. Ongoing -Continue home albuterol pro-air -Continue home nebulizer solution -Continued Advair 6. Hyperlipidemia. Present admission. Chronic. -Continued home atorvastatin 10 mg by mouth at bedtime 7. Hypertension. Present admission. Chronic. Ongoing -Held home lisinopril 10 mg daily 8. Atrial fibrillation. Chronic. Present admission. Ongoing -Continue home diltiazem ER 240 mg by mouth daily -Continued home propanolol 20 mg by mouth 3 times a day -Held clopidogrel 75 mg daily Gastric antral ulcer --continue ppi/carafate 9. Recurrent Hyperkalemia -unclear etiology ,probably due to CKD3 --hyperkalemic w/ 01/23 admission initially --cortisol normal 10. Chronically elevated ST//tachycardia unrelated to albuterol, extensive w/u by administrative court justice in past 11. Antral Ulcer 01/26/17/GERD/ esophageal diverticulum/dysmotility-soft diet, f/ u with Dr Velasco outpatient 12. CKD stage III (baseline Cr.1.2) 13. Anxiety disorder --continue home diltiazem DVT prophylaxis lovenox Code full Disposition: Possible discharge to SNF tomorrow. Note: This note was dictated 02/03/2017 for hospital day 02/02/2017. Secondary to computer error original note was lost. Pain Evaluation: Adequate Pain Control VTE Mechanical Devices: Venous Foot Pump Resuscitation Status: CPR: Attempt Resuscitation Attending Statement The patient was seen and examined together with Dr. Ortiz on 02/02/2017 and I agree with the history, exam and plan as outlined in the note above. . MAX ORTIZ DO Feb 03, 2017 14:28 Suresh Browne MD Feb 04, 2017 08:01
--- NOTE | 2017-02-03 14:57 | NUR ---
Social Work: Continued d/c planning Data: Pt is on day 6 of hospitalization. EMR reviewed, pt discussed in rounds. states pt likely ready for d/c in 0-1 days and requested PT meet with pt again. PT reports pt walked 60 feet today, declining from when they saw her last. BEAMER OPERATOR spoke with pt, pt's son, and pt's daughter. They are wanting SNF. SNF choice list given. They state that they have no preference but would like one anywhere between [place] and [place] and that they would like a facility with an RT. BEAMER OPERATOR called facilities and referred pt to [facility] at this time. BEAMER OPERATOR requested to hear back within the day if they are able to take pt. BEAMER OPERATOR will continue to follow. Assessment: Pt who is independent at baseline. Plan: Pt will d/c to SNF if accepted, [facility] referred or will d/c home via POV with [facility] RN/PT and with Trilogy through [facility] with family to caregive, possible need for private pay caregivers. BEAMER OPERATOR will continue to follow. KATARINA Concepcion
--- NOTE | 2017-02-03 14:58 | PCM.PNMED ---
Subjective Date of Service Feb 03, 2017 Subjective Overnight: Patient remained on Trilogy over the night with some desaturations requiring multiple adjustments. As reported to be difficult to titrate the O2 as her saturation levels Rising to the high 90s. Today: Patient asleep in bed at time of interview with son at bedside. Arousable to voice able to carry on conversation appropriately states she is in no pain and feels okay though is still sleepy, requiring naps throughout the day. She states that she does feel benefit from the BiPAP and Trilogy machines. Exam Vital Signs Vital Sign - Last Date Time Temp Pulse Resp B/P Pulse Ox O2 Delivery O2 Flow Rate FiO2 02/03/17 08:23 103 94 02/03/17 08:02 36.9 16 145/60 Nasal Cannula 3.00 02/02/17 11:16 35 Intake and Output 02/02/17 02/02/17 02/03/17 Cumulative From/Thru 15:00 23:00 07:00 01/28/17 14:56 - 02/03/17 06:38 Intake Total 1672 ml 888 ml 17157 ml Output Total 1350 ml 1250 ml 26057 ml Balance 322 ml -362 ml -5610 ml Intake Oral 1672 ml 888 ml 8496 ml IV Total 2419 ml Output Urine Total 1350 ml 1250 ml 23038 ml # Bowel Movements 3 Exam General: Laying in hospital bed in no apparent distress, nasal cannula placed. Son at bedside. Arousable to voice though somnolent HEENT: Normocephalic, atraumatic. External ears without defect. Pupils equal, round, and reactive to light and accommodation. Neck: Supple with full range of motion. No jugular venous distension. Cardiovascular: Regular rate with irregular rhythm with no murmurs Pulmonary: Expiratory wheezes bilaterally upper anterior and posterior lung sung. Abdomen: Soft, nontender, nondistended. Extremities: No clubbing, cyanosis or edema Skin: Normal temperature, turgor, and texture Neurological: Cranial nerves grossly intact. Psychiatric: Normal mood and affect, somnolent IVs and Medications Medications Reviewed: Medications were reviewed in detail Lab and Diagnostics Result Diagram: 02/03/1744402/03/17444 Microbiology Urine grew Escherichia coli, pansensitive with the exception of ampicillin X-Rays, CTs and MRIs . CT BRAIN (TPA) IMPRESSION: 1. No acute intracranial disease process. 2. Findings telephoned to Dr. Johny Green on 01/28/2017 at 1503 hrs. This study fulfills neurological imaging criteria for inclusion or exclusion of acute stroke therapies based on available published neurological guidelines. Dictated by: Patti Thomas MD, PhD on 01/28/2017 at 15:01 MRI BRAIN WITHOUT CONTRAST IMPRESSION: Mild microvascular atherosclerotic change in the deep white matter of each hemisphere, no acute or subacute ischemic injury is found. No trauma seen, no hemorrhage present. Dictated by: Adebayo Hammer M.D. on 01/29/2017 at 13:47 X-RAY PICC LINE PLACEMENT BY NURSE IMPRESSION: Tip of PICC lies within the lower superior vena cava. Dictated by: Fuentes Conte M.D. on 01/31/2017 at 21:32 CT ANGIO CHEST PULMONARY EMBOLISM IMPRESSION: 1. No pulmonary emboli. 2. Small bilateral effusions with associated atelectasis. 3. Bronchial wall thickening and areas of tree in bud nodularity are best appreciated within the posterior bilateral lower lobes and the lingula, suspicious for pulmonary infection. Please correlate clinically. 4. Increasing lingular nodule with additional lower lobe subcentimeter nodules present. A followup CT of the chest in 3-6 months is recommended. 5. Thyroid nodules. 6. Small hiatal hernia. Dictated by: Dudley Justice M.D. on 02/01/2017 at 13:22 Assessment & Plan 78y/o female with past medical history of T, COPD, HTN, CKD and anxiety admitted for poss TIA. Hospital day 7 1. Encephalopathy. Present on admission. Acute on chronic. Improved Most likely due to CO2 narcosis following nap. She has significant CO2 retention with serum bicarbonate 42. Last PFT reportedly shows FEV 1 18% - Neurology following, recommendations are appreciated - EEg negative for epileptiform activity - Patient has used BiPAP and Trilogy with resolution of CO2 narcosis symptoms and improvement in ABGs and ventilation status 2. Acute UTI. Present on admission. Acute. Ongoing -Urine culture growing > 100,000 E .coli pansensitive -Continue ceftriaxone - initiated for 01/25/2017 currently on day 6 3. Acute on chronic hypoxic and hypercapnic respiratory failure due to advanced COPD. Present on admission. Ongoing -Suspect possible CO2 narcosis following nap. - Currently utilizing BiPAP/Trilogy system with improvement of ABG's 4. Macrocytic anemia and thrombocytopenia. Present on admission. 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 COPD. Present admission. Ongoing -Continue home albuterol pro-air -Continue home nebulizer solution -Continued Advair 6. Hyperlipidemia. Present admission. Chronic. -Continued home atorvastatin 10 mg by mouth at bedtime 7. Hypertension. Present admission. Chronic. Ongoing -Held home lisinopril 10 mg daily 8. Atrial fibrillation. Chronic. Present admission. Ongoing -Continue home diltiazem ER 240 mg by mouth daily -Continued home propanolol 20 mg by mouth 3 times a day -Held clopidogrel 75 mg daily Gastric antral ulcer --continue ppi/carafate 9. Recurrent Hyperkalemia -unclear etiology ,probably due to CKD3 --hyperkalemic w/ 01/23 admission initially --cortisol normal 10. Chronically elevated ST//tachycardia unrelated to albuterol, extensive w/u by guide winder in past 11. Antral Ulcer 01/26/17/GERD/ esophageal diverticulum/dysmotility-soft diet, f/ u with Dr Velasco outpatient 12. CKD stage III (baseline Cr.1.2) 13. Anxiety disorder --continue home diltiazem DVT prophylaxis lovenox Code full Disposition: Social work attempting to gain approval for discharge to SNF tomorrow. Pain Evaluation: Adequate Pain Control VTE Mechanical Devices: Venous Foot Pump Resuscitation Status: CPR: Attempt Resuscitation Attending Statement The patient was seen and examined together with Dr. Ortiz on 02/03/2017 and I agree with the history, exam and plan as outlined in the note above. . MAX ORTIZ DO Feb 03, 2017 14:58 Suresh Browne MD Feb 04, 2017 08:01
--- NOTE | 2017-02-03 15:44 | NUR ---
Oxygen, Multidisciplinary Communication 0934 - Spoke with Dr. Ortiz in morning multidisciplinary rounds about her care, her oxygen requirements, and her potassium being 5.5. Informed them that per plant safety engineer report it had been quite difficult to maintain oxygen saturations between 88-92%. With each titration to correct her oxygen saturation they would either go too low (low 80s/[id number]) or too high (95%-100%). 1115 - Spoke to her son who was asking if she was going to have another ABG drawn today. Told them this nurse would look into it. Spoke to Respiratory Therapist Johny Porras about this and and he paged Dr. Ortiz to find out. Dr. Ortiz called him back and said he didn't want to order one for now. Oxygen - Her oxygen needs have been rather varied today. Similar to last night's report she has needed frequent titration both while on the Trilogy and nasal cannula to try and maintain her O2 saturation of 88-92%. She Respiratory Therapy and Dr. Ortiz and Dr. Browne aware. Care continues.
[2017-02-04] VITALS (9 sets, daily range): BP systolic 106–147; BP diastolic 60–76; PULSE 82–107; RESP 20–22; O2SAT 90–100
--- NOTE | 2017-02-04 02:06 | NUR ---
oxygen titration oxygen sats difficult to maintain , patient sats are either 85% or 95%. on a variety of settings. (6-11 liters on the trilogy 2-3.5 liters on the nc) oxygen just now titrated down to 7 liters on trilogy. (previously 8 liters). RT notified. previously was 8 liters at 95%. will cont to monitor carefully. daughter very concerned about pending trx to snf, listened to concerns. given emotional support. care ongoing.
[2017-02-04] MEDS: Pantoprazole 40 mg ER24 Tablet PO SCH ×2 (06:36→16:48)
[2017-02-04] MEDS: Sucralfate 1,000 mg Tablet PO SCH ×4 (06:36→23:44)
--- NOTE | 2017-02-04 06:37 | ABG ---
DateTimeAnalyzed 06:33:00 -_ pH ____7.267 - 7.350 7.450 pCO2 109 -mmHg 35.0 45.0 pO2 ___55.6__ -mmHg 69.0 116 HCO3- ___48.1__ -mmol/L 22.0 26.0 ABE ___18.7__ -mmol/L -2.0 2.0 tHb ____8.2__ -g/dL O2Hb ___86.6__ -% COHb ____1.8__ -% MetHb ____1.1__ -% sO2 ___89.2__ -% FIO2 ___40.0__ -% Drawn By RB - Date/Time Notified____ 06:37:00 -_ Oxygen Device 1 __CANNULA - Notified By RB - Notified Whom JUVENAL B, RN - B 762 -mmHg tO2 ___10.1__ -Vol% Mika test _Positive -
[2017-02-04 07:33] LABS: BASOPHILS % (AUTO) 0.2 % (0-3); EOSINOPHILS % (AUTO) 4.9 % (0-5); MONOCYTES % (AUTO) 15.7 % (4-12); Mean Corpuscular Hemoglobin 29.4 pg (27.0-35.0); NEUTROPHILS % (AUTO) 63.5 % (40-74); Platelet Count 125 bil/L (150-400)
[2017-02-04 08:21] LABS: Magnesium 2.2 mg/dL (1.6-2.6)
[2017-02-04] MEDS: Fluticasone-Salmeterol 500-50 Inhaler INHALATION SCH ×2 (08:34→20:17)
[2017-02-04] MEDS: Ascorbic Acid 500 mg Tablet PO SCH (08:35)
[2017-02-04] MEDS: LORazepam 0.5 mg Tablet PO SCH ×3 (08:35→20:17)
[2017-02-04] MEDS: Nystatin 100,000 Unit/mL 5 mL Suspension PO SCH ×4 (08:35→23:44)
[2017-02-04] MEDS: Diltiazem CD 120 mg ER24 Capsule PO SCH (08:35)
[2017-02-04] MEDS: Heparin 5,000 Unit/mL Inj SUBQ SCH ×3 (08:36→23:47)
--- NOTE | 2017-02-04 10:10 | NUR ---
Social Work: Continued d/c planning MAINTENANCE MECHANIC SUPERVISOR called both [facility], left voice mail requesting a call back before 11am regarding if pt is accepted to their facility or not and that pt is medically ready for d/c today per MD at rounds. MAINTENANCE MECHANIC SUPERVISOR will continue to follow. KATARINA Concepcion Addendum: 02/04/17 at 1202 by MEENU EVANS Social Work: Continued d/c planning -[facility] states they are considering accepting pt, but that they are very full and have to inquire regarding a bed hold on a pt who just left their facility and will get back to MAINTENANCE MECHANIC SUPERVISOR. -MAINTENANCE MECHANIC SUPERVISOR called [facility] again, no answer, left message requesting decision of acceptance or not JEIMY. -MAINTENANCE MECHANIC SUPERVISOR referred pt to [facility], spoke with Brian who states that she will get back to MAINTENANCE MECHANIC SUPERVISOR JEIMY regarding decision. MAINTENANCE MECHANIC SUPERVISOR will continue to follow. KATARINA Concepcion Addendum: 02/04/17 at 1347 by MEENU EVANS Social Work: Continued d/c planning MAINTENANCE MECHANIC SUPERVISOR spoke with pt's daughter who states that their preference is [facility]. [facility] said they would like to have a clinical liaison come to the hospital tomorrow to evaluate if they can meet the medical needs of pt's. They will notify MAINTENANCE MECHANIC SUPERVISOR of time. KATARINA Concepcion
[2017-02-04] MEDS ORDERED: 0.9% Sodium Chloride 250 ML ONE (11:18)
[2017-02-04] MEDS: cefTRIAXone Inj 1,000 MG in Dextrose 5% Minibag Plus 50 ML IV SCH (11:31)
--- NOTE | 2017-02-04 14:22 | NUR ---
Social Work: Continued d/c planning Data: [facility] states they cannot take pt if her O2 levels are the way they are, reported by RN to vary between 7-11 liters, [facility] [place] [facility] typically does not take pt's over 8 liters. [facility] will come to the hospital on 02/05 to clinically review pt to see if she is appropriate for their facility. Pt's daughter states when pt goes home, the O2 provided by [facility] does not go as high as pt needs it right now. Pt's daughter is interested about hospice for the future, but states that she has not yet talked with pt about it as an option. MD states they will make a Palliative referral. Plan: putting in order for Palliative consult on 02/05. Pt's desire is to be at home with [facility] after a short SNF stay for rehab, pt's daughter supportive of this. [facility] will come to the hospital on 02/05 to clinically review pt to see if she is appropriate for their facility, this is pt and daughters first preference. [facility] continues to review and is their second preference. If neither facility can accommodate pt's O2 needs, pt's daughter states she is willing to work to get what ever equipment pt needs at home and care for her there. CAR SEAT COVERER will continue to follow. KATARINA Concepcion
--- NOTE | 2017-02-04 15:18 | NUR ---
Patient & Multidisciplinary Communication, Transfer of Care 0830 - During morning assessments and medication administration Dr. Maldonado came into the room to assess her. Showed him her most recent ABG results. Pt seemed to accept she would need SNF care and then 30/04 care once she went home. 09 - Spoke with the daughter and she requested to speak to the Doctors when they were available. Passed this information along to Dr. Maldonado and Dr. Browne during morning multidisciplinary rounds. About 1100 - Provided Trilogy teaching to her daughter. Answered her questions. 1430 - Transfer of care to Candice Napier RN. Care continues. Addendum: 02/04/17 at 1542 by COLTON WADDELL RN Notified Candice Peck RN that her mentation has diminished throughout the day. Care continues.
--- NOTE | 2017-02-04 15:30 | NUR ---
Took over care Took over pt care at about 1530. Pt A&O x3 at this time stating feeling tired. SpO2 88-90% on 1.5L NC, denied feeling SOB. Daughter in room helping with care. Ongoing care.
--- NOTE | 2017-02-04 17:03 | PCM.PNMED ---
Subjective Date of Service Feb 04, 2017 Subjective Patient is a 78-year-old female with COPD, HTN, CKD and anxiety admitted for possible TIA but found to have CO2 narcosis, which was improved with BiPAP/ Trilogy. Hospital day #8. No overnight events. The patient reports feeling well this morning but still unable to ambulate very far without assistance. She states her breathing is improved. She is tolerating Trilogy non-invasive positive pressure ventilation. Exam Vital Signs Vital Sign - Last Date Time Temp Pulse Resp B/P Pulse Ox O2 Delivery O2 Flow Rate FiO2 02/04/17 12:02 112 147/76 100 02/04/17 08:35 Supplement Oxygen 02/04/17 08:27 37.0 20 3.00 02/03/17 23:14 40 Intake and Output 02/03/17 02/03/17 02/04/17 Cumulative From/Thru 15:00 23:00 07:00 01/28/17 14:56 - 02/04/17 07:00 Intake Total 1420 ml 1520 ml 41728 ml Output Total 2750 ml 1000 ml 13602 ml Balance -1330 ml 520 ml -6420 ml Intake Oral 1180 ml 1520 ml 25758 ml IV Total 240 ml 2659 ml Output Urine Total 2750 ml 1000 ml 01967 ml # Voids 2 2 # Bowel Movements 1 0 4 Exam General: Laying in hospital bed in no apparent distress. Appropriately interactive. HEENT: Normocephalic, atraumatic. External ears without defect. Nasal cannula in place. Cardiovascular: Regular rate with irregular rhythm. No murmurs appreciated. Pulmonary: Decreased breath sounds bilaterally, poor air movement. Abdomen: Soft, nontender, nondistended. Extremities: No clubbing, cyanosis or edema Skin: Normal temperature, turgor, and texture Neurological: Grossly neurologically intact. Psychiatric: Normal mood and affect. IVs and Medications Medications Reviewed: Medications were reviewed in detail Lab and Diagnostics Result Diagram: 02/04/17 0700 02/04/17 0700 Microbiology Urine grew Escherichia coli, pansensitive with the exception of ampicillin X-Rays, CTs and MRIs . CT BRAIN (TPA) IMPRESSION: 1. No acute intracranial disease process. 2. Findings telephoned to Dr. Johny Green on 01/28/2017 at 1503 hrs. This study fulfills neurological imaging criteria for inclusion or exclusion of acute stroke therapies based on available published neurological guidelines. Dictated by: Patti Thomas MD, PhD on 01/28/2017 at 15:01 MRI BRAIN WITHOUT CONTRAST IMPRESSION: Mild microvascular atherosclerotic change in the deep white matter of each hemisphere, no acute or subacute ischemic injury is found. No trauma seen, no hemorrhage present. Dictated by: Adebayo Hammer M.D. on 01/29/2017 at 13:47 X-RAY PICC LINE PLACEMENT BY NURSE IMPRESSION: Tip of PICC lies within the lower superior vena cava. Dictated by: Fuentes Conte M.D. on 01/31/2017 at 21:32 CT ANGIO CHEST PULMONARY EMBOLISM IMPRESSION: 1. No pulmonary emboli. 2. Small bilateral effusions with associated atelectasis. 3. Bronchial wall thickening and areas of tree in bud nodularity are best appreciated within the posterior bilateral lower lobes and the lingula, suspicious for pulmonary infection. Please correlate clinically. 4. Increasing lingular nodule with additional lower lobe subcentimeter nodules present. A followup CT of the chest in 3-6 months is recommended. 5. Thyroid nodules. 6. Small hiatal hernia. Dictated by: Dudley Justice M.D. on 02/01/2017 at 13:22 Assessment & Plan Patient is a 78-year-old female with COPD, HTN, CKD and anxiety admitted for possible TIA but found to have CO2 narcosis, which was improved with BiPAP/ Trilogy. Hospital day #8. 1. Encephalopathy, acute. Present on admission. Acute on chronic. Improved - Most likely due to CO2 narcosis following nap. She has significant CO2 retention with elevated serum bicarbonate. Last PFT reportedly shows FEV 1 18% - Neurology following, recommendations are appreciated - EEG negative for epileptiform activity - Patient has used BiPAP and Trilogy with resolution of CO2 narcosis symptoms and improvement in ABGs and ventilation status - ABG today continues to show marked elevation of CO2, which may be baseline 2. Acute UTI. Present on admission. Ongoing -Urine culture growing > 100,000 E .coli pansensitive -Stopped ceftriaxone. Patient received 7 days of antibiotic therapy. 3. Acute on chronic hypoxic, hypercapnic respiratory failure due to advanced COPD. Present on admission. Ongoing - CO2 narcosis - Currently utilizing BiPAP/Trilogy system 4. Macrocytic anemia and thrombocytopenia. Present on admission. Ongoing -Prior evaluation for pernicious anemia was negative -Prior B12 < 300 despite daily B complex vitamin intake -Anticipate f/u post adoption coordinator, prior reticulocyte consistent w/ underproduction -B12 injection given on 01/28 -Follow with CBC 5. COPD, chronic. Present admission. Ongoing -Continue albuterol -Continued Advair 6. Hyperlipidemia. Present admission. Chronic. -Continued home atorvastatin 10 mg by mouth at bedtime 7. Hypertension. Present admission. Chronic. Ongoing -Held home lisinopril 10 mg daily 8. Atrial fibrillation. Chronic. Present admission. Ongoing -Continue home diltiazem ER 240 mg by mouth daily -Continued home propanolol 20 mg by mouth 3 times a day -Held clopidogrel 75 mg daily 9. Gastric antral ulcer, chronic. Present on admission -continue ppi/carafate -Follow up with Dr. Velasco outpatient 10. Recurrent Hyperkalemia. Present on admission. Active -Unclear etiology, possibly due to CKD -cortisol normal -Follow with CMP 11. Chronically elevated sinus tachycardia unrelated to albuterol, extensive w/ u by payroll processor in past -Continue home diltiazem 12. CKD stage III. Present on admission -baseline Cr.1.2 -Currently at baseline -Avoid nephrotoxins -Follow with BMP 13. Anxiety disorder, chronic. Present on admission -Continue lorazepam TID DVT prophylaxis lovenox Disposition: Clinical liaison from [facility] to meet with patient 2106. Anticipate discharge to SNF with hospice information meeting after discharge to SNF. Pain Evaluation: Adequate Pain Control VTE Mechanical Devices: Venous Foot Pump Resuscitation Status: CPR: Attempt Resuscitation Attending Statement The patient was seen and examined together with Dr. Maldonado on 02/04/2017 and I agree with the history, exam and plan as outlined in the note above. . Kenji Maldonado DO Feb 04, 2017 17:03 Suresh Browne MD February 05, 2017 07:42
[2017-02-05 03:15] VITALS: BP 166/71; PULSE 96; RESP 24; O2SAT 90
--- NOTE | 2017-02-05 03:20 | NUR ---
Respiratory: SpO2: 90% on 2L nasal cannula at start of shift, pt. awake at that time visiting with family at bedside. At HS, pt. placed on trilogy machine with oxygen bleed in. Oxygen bleed in to trilogy machine titrated to 9L. Pt.'s SpO2: 88-93% on trilogy machine with 9L oxygen bleed in. Pt. tolerating trilogy machine well. Denies SOB. Continuous pulse oximeter on throughout shift. Will continue to monitor.
[2017-02-05 04:44] LABS: BASOPHILS % (AUTO) 0.3 % (0-3); EOSINOPHILS % (AUTO) 4.3 % (0-5); MONOCYTES % (AUTO) 14.7 % (4-12); Mean Corpuscular Volume 110.3 fL (81-100); NEUTROPHILS % (AUTO) 66.9 % (40-74); Platelet Count 123 bil/L (150-400)
[2017-02-05] MEDS: Sucralfate 1,000 mg Tablet PO SCH ×2 (05:52→11:30)
[2017-02-05 08:24] VITALS: BP 139/67; PULSE 96; RESP 14; O2SAT 96
[2017-02-05] MEDS ORDERED: Diltiazem CD 120 mg ER24 Capsule PO SCH (08:30)
[2017-02-05] MEDS: Ascorbic Acid 500 mg Tablet PO SCH (08:32)
[2017-02-05] MEDS: Heparin 5,000 Unit/mL Inj SUBQ SCH (08:32)
[2017-02-05] MEDS: LORazepam 0.5 mg Tablet PO SCH ×2 (08:33→14:30)
[2017-02-05] MEDS: Pantoprazole 40 mg ER24 Tablet PO SCH (08:33)
[2017-02-05] MEDS: Nystatin 100,000 Unit/mL 5 mL Suspension PO SCH ×2 (08:33→13:00)
[2017-02-05] MEDS: Fluticasone-Salmeterol 500-50 Inhaler INHALATION SCH (08:33)
--- NOTE | 2017-02-05 09:05 | NUR ---
Respiratory Pt assessed, found sitting up in bed breathing 2LNC. Sat 96%, HR irregular; 105, RR 20, BS markedly diminished. Pt aware Tx is available and did not want one at this time. Stated would like to go back onto the trilogy after breakfast. Pt will call if Tx is desired.
[2017-02-05] MEDS ORDERED: AMLO5TAB2 PO (09:40)
[2017-02-05] MEDS ORDERED: DILT120C83 PO (09:40)
[2017-02-05] MEDS ORDERED: ASPI-973 PO (09:40)
[2017-02-05] MEDS ORDERED: IPRA3AMP IH (09:48)
[2017-02-05] MEDS ORDERED: ARFO15VI2 IH (09:48)
[2017-02-05] MEDS ORDERED: BUDE0.5A2 INHALATION (09:48)
[2017-02-05] MEDS ORDERED: LORA-302 PO (10:14)
--- NOTE | 2017-02-05 10:15 | PCM.DIMED ---
Adriana Cohen DO 02/05/17 0936: Discharge Instructions Date of Service February 05, 2017 Dates of Hospitalization Jan 28, 2017 at 16:56 Discharge Diagnosis Discharge Diagnosis 1. Encephalopathy, acute. Present on admission. Acute on chronic. Improved 2. Acute on chronic hypoxic, hypercapnic respiratory failure due to advanced COPD. Present on admission. Ongoing 3. Acute UTI. Present on admission. Treated 4. Macrocytic anemia and thrombocytopenia. Present on admission. Ongoing 5. COPD, chronic. Present admission. Ongoing 6. Hyperlipidemia. Present admission. Chronic. Ongoing 7. Hypertension. Present admission. Chronic. Ongoing 8. Atrial fibrillation. Chronic. Present admission. Ongoing 9. Gastric antral ulcer, chronic. Present on admission. Ongoing 10. Recurrent Hyperkalemia. Present on admission. Treated 11. Chronically elevated sinus tachycardia unrelated to albuterol, extensive w/ u by box truck washer in past. Ongoing 12. CKD stage III. Present on admission. Ongoing 13. Anxiety disorder, chronic. Present on admission. Ongoing Diet Heart Healthy Activity No restrictions Call your provider Fever or Chills, Bleeding, Chest pain, Vomitting, Excessive diarrhea, Weakness ( unilateral) Patient Instructions Follow up with Hospice as planned. Follow-up Provider: Zahira Kemp Follow-up with PCP in: 2 weeks Suresh Browne MD 02/05/17 1630: Discharge Instructions Attending's Statement The patient was seen and examined together with Dr. Cohen on 02/05/2017 and I agree with the history, exam and plan as outlined in the note above. . Adriana Cohen DO February 05, 2017 09:36 Suresh Browne MD February 05, 2017 16:30
[2017-02-05 13:30] VITALS: BP 137/56; PULSE 88; RESP 20; O2SAT 95
--- NOTE | 2017-02-05 14:33 | NUR ---
Social Work Note - Discharge: D/A: The Pt is 71 y/o female that is now on day 8 of hospitalization for SERGIO, altered mental status. The Pt is medically stable for discharge today, Pt to be discharged to [facility] this afternoon at 1530pm. Pt was accepted to both [facility] and [facility], however [facility] preference. [facility] informed that the Pt is to be discharged today, family to transport trilogy machine. Pt is now down to 2L of O2. Family informed SW that they will see how the Pt does at [facility] before following through with an info visit. Palliative Care notified of Pt discharge and plan. Pt and family deny any other needs at this time, SW to follow if needs arise. P: Pt to discharge to [facility] today at 1530pm via [facility] cabulance. Family to transport trilogy machine, [facility] informed. Family to look into info visit at a later date, if appropriate. Johana Lora, SUPERVISING BAILIFF Night Worker Dana Moct[place]uma MSW
--- NOTE | 2017-02-05 15:41 | NUR ---
DISCHARGE Received orders for patient to transfer to SNF, [facility]. Vitals stable, and patient not on telemetry. PICC removed by IV therapy, per MD order, as IV antibiotics are no longer required. Patient's daughter at bedside, planning to gather belongings and follow transport vehicle to SNF. Patient transfer summary completed and added to packet, DYE STAND LOADER collected prescriptions and discharge packet, placed outside of patient's room. Transport arrived to patient's room at 1525, patient transferred into wheelchair without difficulty. She is transported from unit at 1540. All belongings collected and given to patient's daughter, including Trilogy Machine. Report called to SERENA Flores at [facility].
--- NOTE | 2017-02-05 23:21 | PCM.DC.MED ---
Discharge Summary Date of Service February 05, 2017 Dates of Hospitalization Date of Hospital Admission Jan 28, 2017 at 16:56 Date of Discharge: February 05, 2017 Providers: Admitting Physician: Sahil Young MD Primary Care Physician: Zahira Kemp Attending Physician: Sahil Young MD Diagnosis at Time of Discharge Diagnosis at Time of Discharge 1. Encephalopathy, acute on chronic. Present on admission. Improved 2. Acute on chronic hypoxic, hypercapnic respiratory failure due to advanced COPD. Present on admission. Ongoing 3. Acute UTI. Present on admission. Treated 4. Macrocytic anemia and thrombocytopenia. Present on admission. Ongoing 5. COPD, chronic. Present admission. Ongoing 6. Hyperlipidemia. Present admission. Chronic. Ongoing 7. Hypertension. Present admission. Chronic. Ongoing 8. Atrial fibrillation. Chronic. Present admission. Ongoing 9. Gastric antral ulcer, chronic. Present on admission. Ongoing 10. Recurrent Hyperkalemia. Present on admission. Treated 11. Chronically elevated sinus tachycardia unrelated to albuterol, extensive w/ u by packager or packer and weigher in past. Ongoing 12. CKD stage III. Present on admission. Ongoing 13. Anxiety disorder, chronic. Present on admission. Ongoing Consultations Neurology, Anushka Bliss MD (Assesment and plan per consultation note on Hospital day #2 01/29/17) The patient is a 71-year-old female, recently discharged from the hospital due to possible transient ischemic attack caused by vision changes. MRI of the brain at that time did not show evidence of acute stroke but did show chronic lacunar infarcts in both hemispheres. Echocardiogram also showed enlarged atria. The patient has electrolyte abnormalities and anemia of unclear etiology. She expresses concerns about anxiety and is showing signs of extreme caregiver stress. Myoclonus was not demonstrated until the patient thought about it with distraction eliminated myoclonus. I will defer to Dr. Saxena for her medical problems and electrolyte abnormalities, anemia noted on exam, but in terms of the episode which appears to be syncopal, it may have its origin in cardiac arrhythmia, fatigue, or a combination of this with electrolyte abnormalities. Long-term, cardiac monitoring on discharge is recommended. I understand the patient has established with a packager or packer and weigher. I also recommended addressing the patient's caregiver stress, which she talked about extensively with me today, since I am her mother's neurologist. Her mother has Lewy body dementia and is apparently not sleeping, which is causing extreme caregiver stress and contributing to the patient's chronic health problems. I requested an MRI of the brain to look for any evidence of acute stroke. I will comment after the study is completed. ADDENDUM: No evidence of acute stroke by MRI. EEG shows slowing but no epileptiform abnormalities. Results discussed with the patient. I spoke with the patient's daughter Lorenzo who is an RN at [facility] [employer] in [place]. I told her about my recommendations for cardiac monitoring after discharge and management of her chronic medical problems as well as reduction of caregiver stress. She advises me that arrangements are being made for her grandmother to either have in-home care or be placed in a facility. She reports that the patient is between PCPs right now but will follow-up with the new PCP. I will sign off for now. Please call if needed. An additional 30 minutes was spent reviewing imaging studies and speaking with the patient's daughter for a total consultation time of 60 minutes. Procedures XRay, CTs & MRIs . CT BRAIN (TPA) IMPRESSION: 1. No acute intracranial disease process. 2. Findings telephoned to Dr. Johny Green on 01/28/2017 at 1503 hrs. This study fulfills neurological imaging criteria for inclusion or exclusion of acute stroke therapies based on available published neurological guidelines. Dictated by: Patti Thomas MD, PhD on 01/28/2017 at 15:01 MRI BRAIN WITHOUT CONTRAST IMPRESSION: Mild microvascular atherosclerotic change in the deep white matter of each hemisphere, no acute or subacute ischemic injury is found. No trauma seen, no hemorrhage present. Dictated by: Adebayo Hammer M.D. on 01/29/2017 at 13:47 X-RAY PICC LINE PLACEMENT BY NURSE IMPRESSION: Tip of PICC lies within the lower superior vena cava. Dictated by: Fuentes Conte M.D. on 01/31/2017 at 21:32 CT ANGIO CHEST PULMONARY EMBOLISM IMPRESSION: 1. No pulmonary emboli. 2. Small bilateral effusions with associated atelectasis. 3. Bronchial wall thickening and areas of tree in bud nodularity are best appreciated within the posterior bilateral lower lobes and the lingula, suspicious for pulmonary infection. Please correlate clinically. 4. Increasing lingular nodule with additional lower lobe subcentimeter nodules present. A followup CT of the chest in 3-6 months is recommended. 5. Thyroid nodules. 6. Small hiatal hernia. Dictated by: Dudley Justice M.D. on 02/01/2017 at 13:22 Brief History Per admission history and physical on 01/28/17. Sahil Young MD HISTORY was OBTAINED FROM PATIENT daughter / [facility] NOTES History of present illness 71-year-old female, hospitalized 01/23-, and discharged yesterday w/ new propanolo/plavix/buspar/ppi/carafate for TIA/ orthostatic hypotension/gastric ulcer/tremor. Now, she presented with daughter noting 5 minutes of unresponsiveness today at 1:30 PM after waking up from a nap , associated eyes rolled up and daughter performing 2 sternal rubs before for she expresses verbally this discomfort, daughter and were 2 person assist while she stood and shuffled to wheelchair into the car, and evaluated in the ER. Daughter had called EMS but patient told her she could not afford another EMS bill and so daughter drove her to ER. tachycardia/ dysarthria/ confusion and upper extremity weakness, which all resolved by the time she reached the emergency department. in the ER, Left leg raise weakness. Last night she was confused. No tongue biting, no prior seizure, no incontinence. Visual hallucinations she indicates to her daughter that she is watching TV. There is no TV in the room. Per ER note, Left arm was limp but per daughter that was the only arm she could reach so unlikely one sided weakness but generalized unconsciousness. They have not used the home bp cuff at home yet. In the ER vital signs stable, her daughter, who is a nurse, refused aspirin recommended by on-call neurologist Dr. Laws, due to diffuse ecchymosis from plavix/anemia/thrombocytopenia, already took plavix this am. [place] stroke team recommended against TPA. On-call neurologist recommended cardiac monitoring and EEG. NIH score 2 per ER doc - Left lower limb weaker than Right. Patient did not have an [employer] swallow evaluation. She swallowed much water in my presence w/o difficulty. [place], pt is impatient to answer questions, quite alert and oriented but inappropriately answers questions. generalized weakness noted. Review of Systems - none of the following - F/C/sick contact / wt change/ GONZALEZ / sob / cough / cp / acid reflux / n/v/diarrhea / leg swelling No dysuria, recent abx for sinusitis, possible thrush due to recent advair, new ecchymosis in all limbs diffusely since plavix Hospital Course 78-year-old female with COPD, HTN, CKD and anxiety admitted for possible TIA but found to have CO2 narcosis, which was improved with BiPAP/Trilogy. 1. Encephalopathy, acute. Present on admission. Acute on chronic. Improved - Most likely due to CO2 narcosis.Patient with significant CO2 retention with elevated serum bicarbonate. Last PFT reportedly with FEV 1 18% - Neurology consulted, recommendations are appreciated - EEG negative for epileptiform activity - Patient has used BiPAP and Trilogy with resolution of CO2 narcosis symptoms and improvement in ABGs and ventilation status - ABG continued to show marked elevation of CO2, thought to be baseline. 2. Acute UTI. Present on admission. Treated. -Urine culture positive for pansensitive E .coli -Patient received 7 days of antibiotic therapy, ceftriaxone. . 3. Acute on chronic hypoxic, hypercapnic respiratory failure due to advanced COPD. Present on admission. Ongoing - CO2 narcosis, discharged to SNF with Bipap/Trilogy system with plan for short term SNF while family arranged home health services. 4. Macrocytic anemia and thrombocytopenia. Present on admission. Ongoing -Prior evaluation for pernicious anemia was negative -Prior B12 < 300 despite daily B complex vitamin intake -Patient received a B12 injection on 01/28 and CBC monitored daily. -Recommend outpatient follow up with Hematology. -Followed daily CBC 5. COPD, chronic. Present admission. Ongoing -Continued albuterol and Advair. 6. Hyperlipidemia. Present admission. Chronic. -Continued home atorvastatin 10 mg by mouth at bedtime 7. Hypertension, chronic. present on admission. Ongoing -Held home lisinopril 10 mg daily on admission for low BP -Resumed prior to discharge, patient remained hemodynamically stable. 8. Atrial fibrillation. Chronic. Present admission. Ongoing -Increased home diltiazem ER to 360mg by mouth daily -Continued home propanolol 20 mg by mouth 3 times a day -Resumed clopidogrel 75 mg daily 9. Gastric antral ulcer, chronic. Present on admission, Ongoing -Continued ppi/carafate -Recommend outpatient follow up with Dr. Velasco 10. Recurrent Hyperkalemia. Present on admission. Improved. -Unclear etiology, possibly due to CKD -cortisol normal 11. Chronically elevated sinus tachycardia unrelated to albuterol, extensive w/ u by packager or packer and weigher in past -Continued home diltiazem 12. CKD stage III. Present on admission. Ongoing -baseline Cr.1.2 -Currently at baseline -Followed amada BOWIE 13. Anxiety disorder, chronic. Present on admission -Started lorazepam TID Chronic issues known prior to admission. #Vertigo with sinus infections #Chronically elevated ST//tachycardia unrelated to albuterol, extensive w/u by packager or packer and weigher in past #Antral Ulcer 01/26/17/GERD/ esophageal diverticulum/dysmotility-soft diet, f/u with Velasco # Tremor, unknown cerebellar versus essential tremor versus orthostatics tremors versus Parkinson's versus anxiety versus anemia Exam Vital Signs (Last) Date Time Temp Pulse Resp B/P Pulse Ox O2 Delivery O2 Flow Rate FiO2 02/05/17 08:24 Supplement Oxygen 02/05/17 08:24 36.8 96 14 139/67 96 2.00 02/03/17 23:14 40 Exam General: Laying in hospital bed in no apparent distress. Appropriately interactive. HEENT: Normocephalic, atraumatic. External ears without defect. Nasal cannula in place. Cardiovascular: Regular rate with irregular rhythm. No murmurs appreciated. Pulmonary: Decreased breath sounds bilaterally, poor air movement. Abdomen: Soft, nontender, nondistended. Extremities: No clubbing, cyanosis or edema Skin: Normal temperature, turgor, and texture Neurological: Grossly neurologically intact. Psychiatric: Normal mood and affect. Test 01/28/17 15:07 01/28/17 19:20 01/28/17 20:23 01/29/17 05:30 Prothrombin Time 8.9sec (8.1-12.5) Prothromb Time International Ratio 0.83ratio Hold Trevino Top Tube Received (Received) Vitamin D 25-Hydroxy 52.9ng/mL (30.0-100.0) Thyroid Stimulating Hormone (TSH) 2.390uIU/mL (0.450-4.500) Free Thyroxine Index 1.4 (1.2-4.9) Thyroxine (T4) 4.7ug/dL (4.5-12.0) Triiodothyronine (T3) Uptake 29% (24-39) Rapid Plasma Reagin Non reactive (Non Reactive) Urine Color Yellow (YELLOW) Urine Appearance Hazy (CLEAR,HAZY) Urine pH 5.5 (5.0-8.0) Urine Specific Sutton 1.005 (1.003-1.035) Urine Protein Negativemg/dL (NEG,TRACE) Urine Glucose (UA) Negativemg/dL (NEGATIVE) Urine Ketones Negativemg/dL (NEGATIVE) Urine Occult Blood Negative (NEGATIVE) Urine Nitrite Positive (NEGATIVE) Urine Bilirubin Negative (NEGATIVE) Urine Urobilinogen Normalmg/dL (NORMAL) Urine Leukocyte Esterase Trace (NEGATIVE) Urine RBC 0-2/hpf (0-2) Urine WBC 0-5/hpf (0-5) Urine Epithelial Cells None/hpf (NONE-MOD) Urine Crystals None seen (NONE SEEN) Urine Bacteria Many/hpf (NONE-FEW) Urine Hyaline Casts None/lpf (NONE) Urine Granular Casts None seen (NONE SEEN) Urine Waxy Casts None seen (NONE SEEN) Urine Red Blood Cell Casts None seen (NONE SEEN) Urine White Blood Cell Casts None seen (NONE SEEN) Urine Mucus Present (None Seen) Urine Trichomonas None seen (NONE SEEN) Urine Yeast None (NONE SEEN) Urinalysis Comment None Urine Culture Reflexed Indicated Total Creatine Kinase 35U/L (21-215) Troponin T 0.010ug/L (0.0-0.011) Cortisol 10.8ug/dL (.) Test 01/30/17 09:46 01/31/17 08:20 02/01/17 14:25 02/04/17 07:00 Procalcitonin 0.08ng/mL (0.00-0.08) Phosphorus Level 3.5mg/dL (2.5-4.9) Activated Partial Thromboplast Time 98.9sec (22.8-33.0) Magnesium Level 2.2mg/dL (1.6-2.6) Test 02/05/17 04:30 White Blood Count 5.8th/mm3 (3.8-10.1) Red Blood Count 2.62mil/mm3 (3.90-5.20) Hemoglobin 7.6g/dL (12.0-15.6) Hematocrit 28.9% (35.0-46.0) Mean Corpuscular Volume 110.3fL (81-100) Mean Corpuscular Hemoglobin 29.0pg (27.0-35.0) Mean Corpuscular Hemoglobin Concent 26.3% (32.0-37.0) Red Cell Distribution Width 13.3% (12.3-15.4) Platelet Count 123bil/L (150-400) Neutrophils (%) (Auto) 66.9% (40-74) Lymphocytes (%) (Auto) 13.6% (14-46) Monocytes (%) (Auto) 14.7% (4-12) Eosinophils (%) (Auto) 4.3% (0-5) Basophils (%) (Auto) 0.3% (0-3) Sodium Level 141mEq/L (134-144) Potassium Level 5.7mEq/L (3.5-5.2) Chloride Level 91mEq/L (97-108) Carbon Dioxide Level 44mmol/L (18-29) Blood Urea Nitrogen 23mg/dL (8-27) Creatinine 1.15mg/dL (0.57-1.00) Estimat Glomerular Filtration Rate 67mL/min (>59) Glucose Level 98mg/dL (60-99) Calcium Level 8.8mg/dL (8.5-10.1) Total Bilirubin < 0.2mg/dL (0.0-1.2) Aspartate Amino Transf (AST/SGOT) 25U/L (0-50) Alanine Aminotransferase (ALT/SGPT) 30U/L (0-32) Alkaline Phosphatase 54U/L (25-165) Total Protein 5.0g/dL (6.4-8.4) Albumin 3.2g/dL (3.4-5.0) Microbiology Results Urine grew Escherichia coli, pansensitive with the exception of ampicillin Discharge Medications Discharge Medications Amlodipine (Amlodipine) 5 Mg Tablet 5 MG PO DAILY Prescribed by: ANA COHEN DO Arformoterol Tartrate (Brovana) 15 Mcg/2 Ml Vial.neb 15 MCG IH Q12H Prescribed by: ANA COHEN DO Ascorbic Acid (Vitamin C) 1,000 Mg Tab.chew 1,000 MG PO DAILY (Reported) Aspirin (Aspirin) 81 Mg Tablet 81 MG PO DAILY Prescribed by: ANA COHEN DO Atorvastatin Calcium (Atorvastatin Calcium) 10 Mg Tablet 10 MG PO HS Prescribed by: MAGDALENA A WAN, DO Budesonide Neb Soln (Budesonide Neb Soln) 0.5 Mg/2 Ml Neb 0.5 MG INHALATION BID Prescribed by: ANA COHEN DO Clopidogrel (Clopidogrel) 75 Mg Tablet 75 MG PO DAILY Prescribed by: MAGDALENA WAN DO Diltiazem ER (Cardizem CD) 120 Mg Cap.er.24h 360 MG PO DAILY Prescribed by: ANA COHEN DO Lactobacillus Combination No.4 (Probiotic) 1 Each Capsule 1 EACH PO DAILY ( Reported) Lisinopril (Lisinopril) 10 Mg Tablet 10 MG PO DAILY (Reported) Lorazepam (Ativan) 0.5 Mg Tablet 0.5 MG PO TID Prescribed by: ANA COHEN DO Pantoprazole DR (Pantoprazole DR) 40 Mg Tablet.dr 40 MG PO BIDAC Prescribed by: MAGDALENA WAN DO Propranolol HCl (Propranolol HCl) 20 Mg Tablet 20 MG PO TID Prescribed by: MAGDALENA WAN DO Sucralfate (Carafate) 1 Gm Tablet 1 GM PO QID Prescribed by: MAGDALENA WAN DO Vit D3/Folic Acid/B2/B6/B12 (Folgard Tablet) 1 Each Tablet 1 EACH PO DAILY ( Reported) As needed Albuterol Neb Soln (Albuterol Neb Soln) 2.5 Mg/3 Ml Vial.neb 2.5 MG INHALATION QID PRN PRN For Shortness of Breath (Reported) Followup Plan Discharge Diet: Heart Healthy Discharge Activity: No restrictions Patient Instructions Follow up with Hospice as planned. Follow-up Provider: Zahira Kemp Follow-up with PCP in: 2 weeks Time spent Greater than 30 minutes was spent in preparation of discharge with greater than 50% of that time dedicated to patient counseling and coordination of care. . Attending Statement The patient was seen and examined together with Dr. Cohen on 02/05/2017 and I agree with the history, exam and plan as outlined in the note above. . copies to: Zahira Kemp Courtney M DO February 05, 2017 10:20 Suresh Browne MD February 12, 2017 08:27
== END 2017-02-05 15:47 | DRG 189 ==
LOC: SED 14:47 → MPC 16:56 → PCC 01-31 21:16
PROVIDERS: ADMIT Urology; ATTEND Urology
PROC: 4A00X4Z Measurement of Central Nervous Electrical Activity, External Approach (ICD-10-PCS; principal; 2017-01-29)
PROC: 4A033R1 Measurement of Arterial Saturation, Peripheral, Percutaneous Approach (ICD-10-PCS; 2017-01-31)
DX: J96.22 Acute and chronic respiratory failure with hypercapnia (principal); G93.40 Encephalopathy, unspecified; N39.0 Urinary tract infection, site not specified; B37.0 Candidal stomatitis; R06.89 Other abnormalities of breathing; R44.1 Visual hallucinations; F43.9 Reaction to severe stress, unspecified; Z79.02 Long term (current) use of antithrombotics/antiplatelets; D53.9 Nutritional anemia, unspecified; D69.6 Thrombocytopenia, unspecified; K25.9 Gastric ulcer, unspecified as acute or chronic, without hemorrhage or perforation; E87.5 Hyperkalemia; B96.20 Unspecified Escherichia coli [E. coli] as the cause of diseases classified elsewhere; J44.9 Chronic obstructive pulmonary disease, unspecified; N18.3 Chronic kidney disease, stage 3 (moderate); I12.9 Hypertensive chronic kidney disease with stage 1 through stage 4 chronic kidney disease, or unspecified chronic kidney disease; Z63.6 Dependent relative needing care at home; I48.2 Chronic atrial fibrillation

== ENCOUNTER 2017-02-19 15:27 | Emergency (ER) | payer MEDICARE, OTHER ==
[~2017-02-19 15:27] MED LIST changes: -ALBU8.5H2 INHALATION; +AMLO5TAB2 PO; +ARFO15VI2 IH; +ASPI-973 PO; +BUDE0.5A2 INHALATION; -BUSP15TA3 PO; -FLUT12AE4 IH; -IRON100V IV; +LORA-302 PO
[2017-02-19] MEDS ORDERED: 0.9% Sodium Chloride 1,000 ML IV ONE (15:33)
[2017-02-19] MEDS ORDERED: Ondansetron 2 mg/mL 2 mL Inj IVPUSH ONE (15:35)
--- NOTE | 2017-02-19 15:37 | ABG ---
DateTimeAnalyzed 15:32:00 -_ pH ____6.942 - 7.350 7.450 pCO2 218 -mmHg 35.0 45.0 pO2 ___63.7__ -mmHg 69.0 116 HCO3- ___44.6__ -mmol/L 22.0 26.0 ABE ____6.9__ -mmol/L -2.0 2.0 tHb ___10.0__ -g/dL O2Hb ___84.7__ -% COHb ____1.9__ -% MetHb ____1.4__ -% sO2 ___87.6__ -% FIO2 __100.0__ -% CPAP ___16.0__ -cmH2O PEEP ____6.0__ -cmH2O Drawn By jj - Date/Time Notified____ 15:36:00 -_ Oxygen Device 1 ____BIPAP - Notified By jj - Notified Whom dr okelley - B 755 -mmHg tO2 ___12.0__ -Vol% Mika test _Negative -
[2017-02-19 15:43] VITALS: RESP 22; O2SAT 97
[2017-02-19 15:48] VITALS: BP 131/51; PULSE 102; RESP 20; O2SAT 86
--- NOTE | 2017-02-19 15:56 | DRSVH ---
PROCEDURE: X-RAY CHEST ONE VIEW, PORTABLE ([id number]) INDICATIONS: 71 year-old woman with respiratory failure. TECHNIQUE: One view of the chest was acquired. COMPARISON: [facility], CT, CT ANGIO CHEST PE, 02/01/2017, 14:05. [facility] , CR, XR CHEST 1VW (PORTABLE), 01/23/2017, 10:36. FINDINGS: Surgical changes and devices: None. Lungs and pleura: There is infiltrate and consolidation in left upper and lower lobe suspicious for p neumonia. There is a small left pleural effusion or pleural thickening. Right upper lobe infiltrate m ay be present. No pneumothorax. Mediastinum: Mediastinal contours appear normal. Heart size is normal. Bones and chest wall: No suspicious bony lesions. Overlying soft tissues appear unremarkable. IMPRESSION: Left pneumonia and possible right upper lobe pneumonia. Dictated by: Cyril Curry M.D. on 02/19/2017 at 15:53 Approved by: Cyril Curry M.D. on 02/19/2017 at 15:55
[2017-02-19 16:04] LABS: BASOPHILS % (AUTO) 0.3 % (0-3)
[2017-02-19 16:18] LABS: TROPONIN T 0.025 ug/L (0.0-0.011)
[2017-02-19 16:25] LABS: EOSINOPHILS % (AUTO) 0 % (0-5); MONOCYTES % (AUTO) 16.1 % (4-12); Mean Corpuscular Hemoglobin 29.6 pg (27.0-35.0); Mean Corpuscular Volume 110.9 fL (81-100); Platelet Count 176 bil/L (150-400)
[2017-02-19 16:28] LABS: Magnesium 2.7 mg/dL (1.6-2.6)
[2017-02-19] MEDS ORDERED: PANT40TA3 PO (16:40)
[2017-02-19] MEDS ORDERED: ASPI325T32 PO (16:40)
--- NOTE | 2017-02-19 18:00 | ED.REPORT ---
HPI-Dyspnea / Wheezing Date of Service February 19, 2017 ED Provider: Jaswant Christensen Kavya DO 71 y/o female with a hx of TIA, HTN, COPD (stage 4) and asthma presents to the ED via EMS due to respiratory stress, onset today. As per the EMS As per the daughter, the pt has GCS of 3. She is experiencing agonal breathing without BVM.Pt was recently in CCU with COPD exacerbation. As per the daughter, the pt repeatedly said she was tired last night. She was last normal at 1000 and has been significantly declining since. She reports the pt had "glassy eyes" and was non-responsive. She reports that the pt is on trilogy. Her CO2 levels tend to be high at 109 being the maximum. The daughter requests comfort measures and reports her mother doesn't want to be intubated. Nursing Notes Stated Complaint: ALTERED LEVEL OF CONSCIOUSNESS Chief Complaint: Respiratory Distress Nursing Notes Reviewed: Yes Allergies: Coded Allergies: Penicillins (Verified Allergy, Severe, Anaphylaxis, 02/19/17) budesonide (Verified Allergy, Severe, Restlessness, 02/19/17) formoterol (Verified Allergy, Severe, Restlessness, 02/19/17) levofloxacin (Verified Allergy, Severe, Hallucinations, 02/19/17) Scheduled Arformoterol Tartrate (Brovana) 15 Mcg/2 Ml Vial.neb 15 MCG IH Q12H Aspirin (Aspirin) 325 Mg Tablet 325 MG PO DAILY Pantoprazole DR (Pantoprazole DR) 40 Mg Tablet.dr 40 MG PO BID Sucralfate (Carafate) 1 Gm Tablet 1 GM PO QID Scheduled PRN Albuterol Neb Soln (Albuterol Neb Soln) 2.5 Mg/3 Ml Vial.neb 2.5 MG INHALATION QID PRN PRN For Shortness of Breath General Time Seen by MD: 15:33 Chief Complaint Other (Respiratory distress) Hx Obtained From: Patient Arrived By: Ambulance Sudden in Onset?: Yes Onset Occurred: 1 - 4 hours ago Symptom Duration: Since onset Severity: Current: No pain currently Severity: Maximum: No pain Recent Healthcare: No recent doctor visit Similar Sx Previous: No Past Medical History Past Medical History Notes: CODE STATUS: FULL CODE Neurologist: Amari Ryena Past Medical History Reports: Asthma, COPD, GERD, Hypertension, Transient ischemic attack Past Surgical History Gastric surgery Reports: Tubal ligation Smoking History Unknown if Ever Smoker Social History Other Social History: Good social support Ambulatory Status Wheelchair Review of Systems Unable to Obtain ROS Patient condition Constitutional: Reports: Fatigue Respiratory: Reports: Shortness of breath Complete sys rev & neg: except as marked. Physical Exam GCS = 3 Initial Vital Signs Vital Signs (First) Date Time Temp Pulse Resp B/P Pulse Ox O2 Delivery O2 Flow Rate FiO2 02/19/17 15:43 22 97 100 02/19/17 15:48 36.4 102 131/51 BiPAP Head / Eyes: Atraumatic, Normocephalic, PERRL Abdomen / GI: Soft, Non-tender, No guarding, No rebound, No distention Extremities: Vascular intact, Neuro intact, No swelling, No tenderness Skin: Warm, Dry, No cyanosis General/Constitutional: Awake Neck: Atraumatic Respiratory / Chest: Breath sounds = bilat, No chest tenderness, No chest wall deformity Irregular paroxysmal breathing. Diffuse wheezes Cardiovascular: Heart rate NL, Regular rhythm, Heart sounds NL Lower Extremity / Pelvis / MS: Atraumatic, Full range of motion Upper Extremity / MS: Atraumatic, Full range of motion Interpretation & Diagnostics Lab Results Interpretation Result Diagram: 02/19/17 1545 02/19/17 1545 Test 02/19/17 15:45 White Blood Count 13.2th/mm3 (3.8-10.1) Red Blood Count 3.41mil/mm3 (3.90-5.20) Hemoglobin 10.1g/dL (12.0-15.6) Hematocrit 37.8% (35.0-46.0) Mean Corpuscular Volume 110.9fL (81-100) Mean Corpuscular Hemoglobin 29.6pg (27.0-35.0) Mean Corpuscular Hemoglobin Concent 26.7% (32.0-37.0) Red Cell Distribution Width 14.2% (12.3-15.4) Platelet Count 176bil/L (150-400) Neutrophils (%) (Auto) 79.0% (40-74) Lymphocytes (%) (Auto) 2.4% (14-46) Monocytes (%) (Auto) 16.1% (4-12) Eosinophils (%) (Auto) 0% (0-5) Basophils (%) (Auto) 0.3% (0-3) Sodium Level 141mEq/L (134-144) Potassium Level mEq/L (3.5-5.2) Chloride Level 94mEq/L (97-108) Carbon Dioxide Level 38mmol/L (18-29) Blood Urea Nitrogen 43mg/dL (8-27) Creatinine 1.26mg/dL (0.57-1.00) Estimat Glomerular Filtration Rate 60mL/min (>59) Glucose Level 150mg/dL (60-99) Calcium Level 9.7mg/dL (8.5-10.1) Magnesium Level 2.7mg/dL (1.6-2.6) Total Bilirubin < 0.2mg/dL (0.0-1.2) Aspartate Amino Transf (AST/SGOT) 22U/L (0-50) Alanine Aminotransferase (ALT/SGPT) 12U/L (0-32) Alkaline Phosphatase 66U/L (25-165) Troponin T 0.025ug/L (0.0-0.011) Total Protein 7.2g/dL (6.4-8.4) Albumin 3.3g/dL (3.4-5.0) Hold Trevino Top Tube Received (Received) BLOOD GAS REPORT pH 6.942 pCO2 218 pO2 63.7 cHCO3- 44.6 cBase 6.9 X-Ray Chest Interpretation Chest Xray Interpretation: IMPRESSION: Left pneumonia and possible right upper lobe pneumonia. Dictated by: Cyril Curry M.D. on 02/19/2017 at 15:53 Approved by: Cyril Curry M.D. on 02/19/2017 at 15:55 View: Portable, 1 view Interpretation / Wet Read by: Interpret - Radiologist Re-Eval/Medical Decision Med Decision/Clinical Course Patient preparation began prior to arrival when notified by EMS at a high risk minimally responsive patient in respiratory failure. A stat medical team was initiated prior to arrival with myself as the physician, multiple nurses, and other ER and ancillary staff at the bedside awaiting patient to arrival. The patient arrives without any known patient identifiers, in clear respiratory failure and altered mental status, her initial Thorndike Coma Scale was 3. She is actively receiving bag valve mask ventilation by emergency medical personnel. Notification from emergency medical personnel states this patient has known end-stage COPD and is a DO NOT RESUSCITATE and DO NOT INTUBATE. Unfortunately she would rapidly decompensate without [id number] ventilation and although her mental status is not ideal for BiPAP, she was placed on BiPAP in order to further delineate what is going on. Her initial vital signs were otherwise stable other than hypoxia and tachypnea. Her ABG is promptly performed which shows significant respiratory acidosis and CO2 retention which is likely the underlying reason for her symptoms. Once family arrives at bedside, it becomes clear this patient wanted to be a DO NOT RESUSCITATE and DO NOT INTUBATE however there was concerns from family due to her worsening status and they decided to bring her to the ER. After x-ray was performed and pneumonia was identified the family identified they did not want IV antibiotics. The patient's daughter, who is [employer], very clearly from her arrival to the ER identifies that her goal is to make her mother comfortable and prevent suffering as she understands that her mother is imminently dying today. She was continued on BiPAP for a short period of time until other family members could be assembled at the bedside. Once family members had arrived she was taken off of BiPAP and low flow oxygen mask was applied. It should be noted that morphine was ordered as needed for air hunger but was never needed and was not administered. Ultimately at 1820, the patient was apneic with no audible heart beat for 1 minute on exam, she had no spontaneous movement and time of was called. Her cause of is Hypercapnic respiratory failure associated with a large lobar pneumonia and significantly decreased mental status. Re-Evaluation/Progress #1: Time of Eval: 15:36 Re-Evaluation/Progress Note: The pt's daughter want the pt on Bipap on high setting until the rest of the family arrives at the ED. Re-Evaluation/Progress #2: Time of Eval: 15:59 Re-Evaluation/Progress Note: Rechecked pt. Informed the family of the imgaing results. The daughter declines givign the pt antibiotics. Re-Evaluation/Progress #3: Time of Eval: 18:20 Re-Evaluation/Progress Note: Pt . Counseled Regarding: Diagnosis, Lab results, Need for admission Discharge & Departure Impression: Primary Impression: Hypercapnic respiratory failure Additional Impression: Pneumonia Disposition: (1819) Discharge Condition All VS Reviewed: Yes Referrals: Zahira Kemp (PCP) Crit Care Except Billable Proc Time Spent: 75-104 minutes Services Performed: Patient management by me, Time spent at bedside, Reviewing test results, Reviewing imaging, Discussing patient care, Time with fam/ surrogate Critical Care Notes: See MDM Scribe Attestation Portions of this note were transcribed by Jero Todd. I, , personally performed the history, physical exam and medical decision-making;I reviewed and confirmed the accuracy of the information in the transcribed note. Signed by Constantine Pettit. 02/19/17 1831 Jaswant Christensen DO February 19, 2017 18:00 Jero Todd February 19, 2017 18:23
== END 2017-02-19 20:38 | disposition expired ==
LOC: EDBD 15:27 → SED 15:27
DX: J96.92 Respiratory failure, unspecified with hypercapnia (principal); J18.9 Pneumonia, unspecified organism; I10 Essential (primary) hypertension; K21.9 Gastro-esophageal reflux disease without esophagitis; Z86.73 Personal history of transient ischemic attack (TIA), and cerebral infarction without residual deficits; Z79.82 Long term (current) use of aspirin; Z88.0 Allergy status to penicillin; Z88.1 Allergy status to other antibiotic agents; Z88.8 Allergy status to other drugs, medicaments and biological substances
CPT/HCPCS: 36415; 36620; 71010; 80053; 82375; 82803; 83735; 84484; 85025; 93005; 94660; 94799; 99291; 99292; J7030